=== PATIENT | female | born 1940 | race Caucasian/White ===

== ENCOUNTER → 2019-06-30 | Outpatient (CLI) | payer MEDICARE, SELFPAY | PROVIDERS: PCP Internal Medicine; Visit Provider Surgery | DX: N64.89 Other specified disorders of breast (principal); N64.4 Mastodynia; N63.20 Unspecified lump in the left breast, unspecified quadrant; M96.843 Postprocedural seroma of a musculoskeletal structure following other procedure; Z92.3 Personal history of irradiation | CPT/HCPCS: 10060; 10160; 76942; 87070; 87075; 87205 ==

== ENCOUNTER 2019-10-28 13:21 | Outpatient (CLI) | payer MEDICARE, SELFPAY ==
--- NOTE | 2019-10-28 | ECHO_ITS ---
Patient Info Name: Cande Weaver Age: 79 years : 1940 Gender: Female Ht: 66 in Wt: 145 lbs BSA: 1.76 m2 HR: 107 bpm BP: 167 / 89 mmHg Technical Quality: Good Exam Date: 10/28/2019 1:48 PM Exam Location: [facility] Patient Status: Outpatient Admit Date: 10/28/2019 Staff Ordering Physician: Marifer, Eulogio Brannon MD Machine Molder: Mejia Dick RDCS, RT Attending Provider: Marifer, Eulogio Brannon MD Referring Physician: Marifer JIMENEZ; Exam Type: CA echo doppler color flow Study Info Indications Z85.3 - Personal history of malignant neoplasm of breast Complete two-dimensional, color flow and Doppler transthoracic echocardiogram is performed. Summary 1. Left ventricular chamber dimension is normal. 2. Left ventricular systolic function is normal, estimated at 60-65%. 3. The left ventricular diastolic function is normal. 4. E/e' 8 is minimally elevated. 5. Global longitudinal strain is abnormal at -15.3%. 6. There is moderate aortic valve sclerosis. 7. There is mild aortic valve regurgitation. 8. The mitral valve has mildly calcified annulus. 9. There is mild mitral valve regurgitation. 10. There is mild to moderate tricuspid valve regurgitation. 11. No pulmonary hypertension, estimated pulmonary arterial systolic pressure is 30 mmHg. 12. There is trace pulmonic regurgitation. Left Ventricle E/e' 8 is minimally elevated. Global longitudinal strain is abnormal at -15.3%. Left ventricular chamber dimension is normal. Left ventricular systolic function is normal, estimated at 60-65%. The left ventricular diastolic function is normal. Right Ventricle Right ventricular chamber dimension is normal. Right ventricular systolic function is normal. Left Atria Left atrial chamber dimension is normal. Right Atria Right atrial chamber dimension is normal. Aortic Valve The aortic valve is trileaflet. There is moderate aortic valve sclerosis. There is no aortic valve stenosis. There is mild aortic valve regurgitation. Pulmonic Valve There is trace pulmonic regurgitation. Mitral Valve The mitral valve has mildly calcified annulus. There is no mitral valve stenosis. There is mild mitral valve regurgitation. Tricuspid Valve There is mild to moderate tricuspid valve regurgitation. No pulmonary hypertension, estimated pulmonary arterial systolic pressure is 30 mmHg. Pericardium/Pleural There is no pericardial effusion. Inferior Vena Cava Normal inferior vena cava with >50% collapse upon inspiration consistent with normal right atrial pressure, 5 mmHg. Aorta The aortic root size at the sinus of Valsalva is normal. Left Ventricular Outflow Tract Name Value Normal LVOT 2D LVOT Diameter 1.9 cm LVOT Doppler LVOT Peak Gradient 6 mmHg LVOT Mean Gradient 3 mmHg LVOT VTI 28 cm LVOT VTI/AV VTI Ratio 0.9 LVOT Stroke Volume 77 ml LVOT CO 4.8 l/min LVOT CI
== END 2019-10-28 13:22 | disposition home or self-care (01) ==
LOC: ANHCARD 13:27
PROVIDERS: PCP Internal Medicine; Visit Provider Internal Medicine
DX: Z51.81 Encounter for therapeutic drug level monitoring (principal); Z79.899 Other long term (current) drug therapy; I08.3 Combined rheumatic disorders of mitral, aortic and tricuspid valves
CPT/HCPCS: 93306

== ENCOUNTER → 2019-11-15 10:22 | Outpatient (CLI) | payer MEDICARE, SELFPAY ==
--- NOTE | ~2019-11-15 | MM_ITS ---
EXAMINATION: MM screening eleanor BI w marc HISTORY: Screening mammogram, history of left breast cancer TECHNIQUE: Craniocaudal and mediolateral oblique 3-D tomosynthesis images were obtained and synthetic 2-D images were generated. CAD analysis was submitted and interpreted. COMPARISON: 06/22/2018, 06/12/2018, 06/04/2017 BREAST PARENCHYMAL COMPOSITION: The breasts are heterogeneously dense, which may obscure small masses . FINDINGS: Architectural distortion and skin thickening of the left breast are consistent with treatme nt for left breast cancer. There is no evidence of suspicious mass, calcification, or architectural d istortion to suggest malignancy in either breast. There has been no suspicious interval change. IMPRESSION: 1. No mammographic evidence of malignancy. 2. Recommend routine screening mammography while the patient remains in good health. BI-RADS Category 2: Benign finding(s). Reviewed, dictated and finalized at location A. IMPRESSION: 1. No mammographic evidence of malignancy. 2. Recommend routine screening mammography while the patient remains in good he alth. BI-RADS Category 2: Benign finding(s).
== END ==
PROVIDERS: PCP Internal Medicine; Visit Provider Internal Medicine
DX: Z12.31 Encounter for screening mammogram for malignant neoplasm of breast (principal)
CPT/HCPCS: 77063; 77067

== ENCOUNTER 2020-01-18 12:36 | Outpatient (CLI) | payer MEDICARE, SELFPAY ==
--- NOTE | 2020-01-18 | ECHO_ITS ---
Patient Info Name: Cande Weaver Age: 79 years : 1940 Gender: Female Ht: 65 in Wt: 144 lbs BSA: 1.74 m2 HR: 73 bpm BP: 162 / 85 mmHg Heart Rhythm: Sinus Rhythm Technical Quality: Fair Exam Date: 01/18/2020 12:59 PM Exam Location: [facility] Patient Status: Outpatient Admit Date: 01/18/2020 Staff Ordering Physician: Marifer, Eulogio Brannon MD Body Maker Machine Setter: Lo Perez RDCS Attending Provider: Marifer, Eulogio Brannon MD Exam Type: CA echo doppler color flow Study Info Complete two-dimensional, color flow and Doppler transthoracic echocardiogram is performed. Summary 1. Left ventricular systolic function and diastolic function are normal with no regional wall motion abnormalities with a measured ejection fraction of 61%. There is mild LV enlargement. Normal left ventricular thickness. The global longitudinal strain is -14.7%, suggesting early systolic dysfunction but unchanged compared to the exam of 10/28/2019. 2. Left atrial chamber dimension is mildly enlarged. 3. There is mild aortic valve regurgitation. 4. There is mild mitral valve regurgitation. 5. There is mild tricuspid valve regurgitation. 6. No pulmonary hypertension, estimated pulmonary arterial systolic pressure is 35 mmHg. 7. Normal sinus rhythm. 8. Compared to the prior 10/2019, the left ventricular systolic function has not changed although there is now mild left ventricular enlargement. Left Ventricle Left ventricular chamber dimension is mildly enlarged. Left ventricular systolic function is normal, estimated at 55-60%. There is no increased left ventricular wall thickness. Left ventricular septal wall motion is normal. The left ventricular diastolic function is normal. Left ventricular systolic function and diastolic function are normal with no regional wall motion abnormalities with a measured ejection fraction of 61%. There is mild LV enlargement. Normal left ventricular thickness. The global longitudinal strain is -14.7%, suggesting early systolic dysfunction but unchanged compared to the exam of 10/28/2019. Right Ventricle Right ventricular chamber dimension is normal. Right ventricular systolic function is normal. Left Atria Left atrial chamber dimension is mildly enlarged. Right Atria Right atrial chamber dimension is normal. Aortic Valve The aortic valve is trileaflet. There is mild aortic valve sclerosis. There is no aortic valve stenosis. There is mild aortic valve regurgitation. Pulmonic Valve The pulmonic valve is normal. There is no pulmonic valve stenosis. There is trace pulmonic regurgitation. Mitral Valve The mitral valve has normal leaflets. There is no mitral valve stenosis. There is mild mitral valve regurgitation. Tricuspid Valve The tricuspid valve leaflets are normal. There is no significant tricuspid valve stenosis. There is mild tricuspid valve regurgitation. No pulmonary hypertension, estimated pulmonary arterial systolic pressure is 35 mmHg. Pericardium/Pleural The pericardium appears normal. There is no pericardial effusion. Inferior Vena Cava Normal inferior vena cava with >50% collapse upon inspiration consistent with Empty right atrial pressure, 10 mmHg. Aorta The aortic root size at the sinus of Valsalva is normal. The prox ascending aorta size is normal. Left Ventricular Outflow Tract Name Value Normal
== END 2020-01-18 12:37 | disposition home or self-care (01) ==
PROVIDERS: PCP Internal Medicine; Visit Provider Internal Medicine
DX: Z51.81 Encounter for therapeutic drug level monitoring (principal); Z79.899 Other long term (current) drug therapy; I51.7 Cardiomegaly; I08.3 Combined rheumatic disorders of mitral, aortic and tricuspid valves
CPT/HCPCS: 93306

== ENCOUNTER 2020-09-16 06:57 | Outpatient (CLI) | payer MEDICARE, SELFPAY ==
[2020-09-16 07:45] LABS: Alanine Aminotransferase 14 U/L (4-35); Albumin Level 3.9 g/dL (3.5-5.1); Alkaline Phosphatase 80 U/L (38-126); Anion Gap 5 mmol/L (8-16); Aspartate Amino Transferase 29 U/L (14-36); Bilirubin,Total 0.7 mg/dL (0.2-1.3); Blood Urea Nitrogen 21 mg/dL (7-17); Calcium 9.3 mg/dL (8.4-10.2); Carbon Dioxide 30 mmol/L (22-30); Chloride 104 mmol/L (98-107); Cholesterol 235 mg/dL (0-200); Estimated Glomerular Filt Rate > 60; Glucose 88 mg/dL (65-105); HDL Direct 66 mg/dL; Potassium 4.2 mmol/L (3.4-5.0); Sodium 139 mmol/L (137-145); Triglycerides 115 mg/dL (<150)
[2020-09-16 07:56] LABS: LDL Cholesterol Direct 138 mg/dL
[2020-09-16 08:33] LABS: Vitamin D 25 Hydroxy 51.2 ng/mL
== END 2020-09-16 06:58 | disposition home or self-care (01) ==
PROVIDERS: PCP Internal Medicine; Visit Provider Nurse Practitioner
DX: E78.2 Mixed hyperlipidemia (principal); E55.9 Vitamin D deficiency, unspecified
CPT/HCPCS: 36415; 80053; 80061; 82306

== ENCOUNTER → 2020-12-11 00:08 | Outpatient (CLI) | payer MEDICARE, SELFPAY ==
[2020-12-11 19:29] LABS: SARS-CoV-2 RNA PCR Negative
== END ==
PROVIDERS: PCP Internal Medicine; Visit Provider Surgery
DX: Z01.812 Encounter for preprocedural laboratory examination (principal); Z20.822 Contact with and (suspected) exposure to COVID-19
CPT/HCPCS: C9803; U0003; U0005

== ENCOUNTER 2020-12-14 00:06 | Day surgery (SDC) | payer MEDICARE, SELFPAY ==
[2020-10-19 13:01] VITALS: BMI 23.8
[2020-12-01 14:56] VITALS: BMI 23.8
--- NOTE | 2020-12-13 17:31 | PM.SD2 ---
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 She underwent primary systemic chemotherapy for this and then underwent left breast lumpectomy left axillary sentinel node biopsy in April of 2019. She has been followed by Oncology and has had no evidence of recurrent disease. She is taken to surgery today as an outpatient for removal of her right subclavian Port-A-Cath. [facility] Past Medical History Medical History Extremity cyanosis Malignant neoplasm of upper-outer quadrant of left female breast Family History Family History Grandparent Diabetes mellitus Family history of type 2 diabetes mellitus Father Acute myocardial infarction Sibling Acute myocardial infarction Family history of multiple sclerosis Other Family history of cardiovascular disease Social History Social History Smoking status: Never smoker Second hand tobacco smoke exposure: No Alcohol intake: former Alcohol use details: VERY RARELY IN PAST Substance use: never Living arrangements: alone Spiritual care concerns: No Same Day Admit/Disch: Med Pre-admit Medications Home Medications Medication Instructions Recorded Confirmed Type aspirin 81 mg tablet,delayed 81 mg PO DAILY 08/11/19 12/14/20 History release calcium carbonate 600 mg calcium 600 mg PO DAILY 08/11/19 12/14/20 History (1,500 mg) tablet anastrozole 1 mg tablet 1 mg PO DAILY 08/14/20 12/14/20 History latanoprost 0.005 % eye drops 1 drp OPHTHALMIC (EYE) QPM #2.5 ml 08/14/20 12/14/20 Rx polyethylene glycol 400 0.25 % eye 0.1 drp OPHTHALMIC (EYE) TID #10 ml 08/14/20 12/14/20 Rx drops black cohosh 20 mg PO DAILY 10/19/20 12/14/20 History cholecalciferol (vitamin D3) 25 mcg PO DAILY 10/19/20 12/14/20 History [Vitamin D3] vitamin E 400 unit PO DAILY 10/19/20 12/14/20 History brimonidine 0.1 % eye drops See Rx Instructions .ROUTE 11/27/20 12/14/20 Rx .COMPLEX #5 ml ibuprofen 600 mg PO Q6H PRN #14 tablet 12/14/20 Rx Exam Const: General: comfortable, no acute distress, alert and awake HENMT: Head: normocephalic and atraumatic Mouth: Yes Normal oral and palatal mucosa present Eyes: Conjunctivae: conjunctivae normal Pupils: Equal, round and reactive pupils present EOM: EOMs intact bilaterally Neck: Neck: normal visual inspection, no lymphadenopathy and nontender Chest: Chest palpation & inspection: abnormal inspection of the chest ( Right subclavian Port-A-Cath noted- no redness or other issues) Resp: Effort & Inspection: normal respiratory effort Auscultation: clear to auscultation bilaterally Cardio: Rate: regular rate Rhythm: regular rhythm Heart sounds: no gallops, no murmurs and no rubs GI: Inspection: non-distended GI Palp: Yes Soft to palpation, No Tenderness to palpation present (GI), No Hepatomegaly present and No Splenomegaly present Skin: Lesions: no lesions Rashes: no rashes Neuro: General: no focal motor deficits and CN's II-XI intact bilaterally Cranial nerves: Yes Equal, round and reactive pupils present, Yes Bilaterally intact EOM present, Yes facial symmetry and Yes Midline tongue present Speech: normal speech Motor exam (neuro): 5/5 motor strength present throughout and Motor abnormalities not present Extrem: General: no clubbing, cyanosis or edema and edema Psych: Affect: normal affect Thought process: Normal thought process present Insight: Good insight present (Psych) DS: Summary Time Spent with Patient Time attestation: Total time spent providing and/or coordinating discharge services: DS: Admitting Diagnosis Admitting Diagnosis Admitting Diagnosis: HER-2 posi
--- NOTE | 2020-12-14 08:44 | WPDANESEPPF ---
Anes - Initial Pre Proc Eval Procedure: Operation Date: 12/14/20 10:30 Proposed Procedures p Removal Suki Cath - Atilio Clement MD Date/Time: 12/14/20 08:44 Surgeon: Atilio Clement MD Pre Op Diagnosis: Port-A-Cath not needed Patient Data Age: 80 Gender: F Height: 5 ft 5.5 in Weight: 66 kg Allergies Allergy/AdvReac Type Severity Reaction Status Date / Time penicillin G Allergy Unknown Rash Verified 12/01/20 14:55 pneumococcal vaccine Allergy Unknown REDNESS Verified 12/01/20 14:55 AND SWELLING Home Medications Medication Instructions Recorded Confirmed Type aspirin 81 mg tablet,delayed 81 mg PO DAILY 08/11/19 12/01/20 History release calcium carbonate 600 mg calcium 600 mg PO DAILY 08/11/19 12/01/20 History (1,500 mg) tablet anastrozole 1 mg tablet 1 mg PO DAILY 08/14/20 12/01/20 History latanoprost 0.005 % eye drops 1 drp OPHTHALMIC (EYE) QPM #2.5 ml 08/14/20 12/01/20 Rx polyethylene glycol 400 0.25 % eye 0.1 drp OPHTHALMIC (EYE) TID #10 ml 08/14/20 12/01/20 Rx drops black cohosh 20 mg PO DAILY 10/19/20 12/01/20 History cholecalciferol (vitamin D3) 25 mcg PO DAILY 10/19/20 12/01/20 History [Vitamin D3] vitamin E 400 unit PO DAILY 10/19/20 12/01/20 History brimonidine 0.1 % eye drops See Rx Instructions .ROUTE 11/27/20 12/01/20 Rx .COMPLEX #5 ml Patient hx anesthesia problems: none Family hx anesthesia problems: none PMFSH Past Medical History Medical History Extremity cyanosis Malignant neoplasm of upper-outer quadrant of left female breast Family History Family History Grandparent Diabetes mellitus Family history of type 2 diabetes mellitus Father Acute myocardial infarction Sibling Acute myocardial infarction Family history of multiple sclerosis Other Family history of cardiovascular disease Social History Social History Smoking status: Never smoker Second hand tobacco smoke exposure: No Alcohol intake: former Alcohol use details: VERY RARELY IN PAST Substance use: never Living arrangements: alone Spiritual care concerns: No Anes - Eval Final PreProcedure Day of Procedure 12/14/20 08:44 Patient weight: normal Heart: regular rate and rhythm Lungs: clear to auscultation Airway: Mallampati scale class II Neurological: alert and oriented Last oral intake: >/= 8 hours ASA classification: III Emergent: no Anesthetic plan: proceed Anesthesia type and monitoring: general GIVS and standard monitoring Other findings: pt can leave partial in Informed Consent: The patient's anesthetic plan and its attendant risks and benefits were discussed with the patient/family/POA. Questions were solicited and answers provided to the satisfaction of the patient/family/POA.
[2020-12-14 09:00] VITALS: BP 136/56; PULSE 71; RESP 18; TEMP 36.2; O2SAT 100
[2020-12-14] MEDS: LACTATED RINGERS 1,000 ML 30 ML IV CONT (09:23)
--- NOTE | 2020-12-14 09:28 | WPDHPUPDATE1 ---
History and Physical Update Update Date/Time: 12/14/20 09:28 History and Physical has been reviewed, including an updated exam of the patient. There are NO changes in the patient's condition. Risks, benefits, and alternatives have been discussed and questions answered. Patient agrees to proceed with procedure.
[2020-12-14] MEDS: CLINDAMYCIN 900 MG/D5W 50 ML 900 MG/50 ML PIGGYBACK 50 MG IVPB (09:42)
[2020-12-14] MEDS: BUPIVACAINE/EPINEPHRINE 0.5% 30 ML VIAL INFILTRATE (10:01)
[2020-12-14 10:15] VITALS: BP 102/48; PULSE 59; RESP 16; O2SAT 100
--- NOTE | 2020-12-14 10:24 | PM.PROC ---
Procedure Note - Detailed Date of procedure: 12/14/20 Pre-op diagnosis: Port-A-Cath not needed, history breast cancer Breast cancer, Port-A-Cath no longer needed Post-op diagnosis: same Procedure performed: Removal right subclavian Port-A-Cath Description of procedure: Patient was taken to surgery and IV sedation was administered. The right upper chest was prepped and draped. Local was infiltrated over the previous scar. Incision was made and dissection was carried down to the Port-A-Cath tubing and connection to the reservoir. Sharp dissection was used to open the fibrous sheath encapsulating the Port-A-Cath. Port-A-Cath was then extricated from the sheath. The sutures retaining the Port-A-Cath were cut and removed from the wound. The Port-A-Cath was then extricated from the subclavian vein. There was no back bleeding. A few loose ends of the fiber sheath were then removed. The wound was closed in layers with 3 0 Monocryl suture. The skin was closed with running 4 0 Monocryl skin suture. The wound was dressed with Exofin surgical adhesive. The patient was awakened and taken to outpatient recovery in good condition. Anesthesia: MAC and local (0.5% Marcaine with epinephrine) Surgeon: Atilio Clement MD Buffet Waiter/Waitress: Teresa JOEL Estimated blood loss (mL): 5 Drains: No Packing: No Pathology: none sent Complications: None Condition: stable Disposition: same day Findings: Intact vortex Port-A-Cath
[2020-12-14 10:45] VITALS: BP 103/49; PULSE 58; RESP 16; O2SAT 99
[2020-12-14 10:55] VITALS: BP 118/77; PULSE 59; RESP 14; O2SAT 100
== END 2020-12-14 11:10 | disposition home or self-care (01) ==
PROVIDERS: PCP Internal Medicine; Visit Provider Surgery
PROC: (CPT 36589; principal; 2020-12-14 10:30)
DX: Z45.2 Encounter for adjustment and management of vascular access device (principal); Z85.3 Personal history of malignant neoplasm of breast; Z92.21 Personal history of antineoplastic chemotherapy
CPT/HCPCS: 36590; C9803; J0131; J1100; J1885; J2370; J2405; J2704; J3010; J7120; U0003; U0005

== ENCOUNTER 2021-02-01 16:47 | Outpatient (CLI) | payer MEDICARE, SELFPAY ==
--- NOTE | ~2021-02-01 | MM_ITS ---
EXAMINATION: MM screening eleanor BI w marc HISTORY: Screening mammogram TECHNIQUE: Craniocaudal and mediolateral oblique 3-D tomosynthesis images were obtained and synthetic 2-D images were generated. CAD analysis was submitted and interpreted. COMPARISON: 11/11/2019 bilateral digital screening mammogram 04/24/2019 left breast localization 06/22/2018 diagnostic left mammogram and left breast ultrasound BREAST PARENCHYMAL COMPOSITION: The breasts are heterogeneously dense, which may obscure small masses . FINDINGS: There is interval prominent architectural distortion/spiculation and overlying mild retract ion at the outer mid left breast anteriorly, suspicious for recurrent malignancy. There is skin thick ening on the left. Diagnostic left mammogram and left breast ultrasound examination are recommended. There is no evidence of suspicious mass, calcification, or architectural distortion to suggest malign vianca in the right breast. There has been no suspicious interval change on the right. IMPRESSION: 1. Interval prominent architectural distortion and overlying retraction at anterior outer mid left br east 2. Diagnostic left mammogram and left breast ultrasound examination are recommended BI-RADS Category 0: Incomplete: Needs additional imaging evaluation. Reviewed, dictated and finalized at location A. IMPRESSION: 1. Interval prominent architectural distortion and overlying retraction at ante rior outer mid left breast 2. Diagnostic left mammogram and left breast ultrasound examination are recomme nded BI-RADS Category 0: Incomplete: Needs additional imaging evaluation.
== END 2021-02-01 16:48 | disposition home or self-care (01) ==
LOC: ANHIMG 16:53
PROVIDERS: PCP Internal Medicine; Visit Provider Internal Medicine
DX: Z12.31 Encounter for screening mammogram for malignant neoplasm of breast (principal); R92.8 Other abnormal and inconclusive findings on diagnostic imaging of breast
CPT/HCPCS: 77063; 77067

== ENCOUNTER 2021-02-06 07:47 | Outpatient (CLI) | payer MEDICARE, SELFPAY ==
[2021-02-06 08:41] LABS: Anion Gap 6 mmol/L (8-16); Blood Urea Nitrogen 23 mg/dL (7-17); Calcium 9.9 mg/dL (8.4-10.2); Carbon Dioxide 29 mmol/L (22-30); Chloride 106 mmol/L (98-107); Cholesterol 243 mg/dL (0-200); Estimated Glomerular Filt Rate > 60; Glucose 96 mg/dL (65-105); HDL Direct 74 mg/dL; Potassium 4.3 mmol/L (3.4-5.0); Sodium 141 mmol/L (137-145); Triglycerides 80 mg/dL (<150)
[2021-02-06 08:54] LABS: LDL Cholesterol Direct 109 mg/dL
[2021-02-06 09:32] LABS: Vitamin D 25 Hydroxy 63.1 ng/mL
== END 2021-02-06 07:48 | disposition home or self-care (01) ==
PROVIDERS: PCP Internal Medicine; Visit Provider Internal Medicine
DX: E78.5 Hyperlipidemia, unspecified (principal); Z13.6 Encounter for screening for cardiovascular disorders; E55.9 Vitamin D deficiency, unspecified
CPT/HCPCS: 36415; 80048; 80061; 82306

== ENCOUNTER 2021-03-02 11:46 | Outpatient (CLI) | payer MEDICARE, SELFPAY ==
--- NOTE | ~2021-03-02 | MMUS_ITS ---
EXAMINATION: MM diagnostic mammo unilat LT, US breast LT limited HISTORY: Interval prominent architectural distortion and overlying retraction in the anterior outer m id left breast on 02/01/2021 screening mammogram TECHNIQUE: Additional 3-D tomosynthesis images of the left breast were performed and synthetic 2-D im ages were generated. CAD analysis was submitted and interpreted. High resolution upper outer quadrant left breast ultrasound was performed. COMPARISON: 02/01/2021 and 11/15/2019 bilateral digital screening mammogram examinations 06/22/2018 diagnostic left mammogram and limited left breast ultrasound 06/12/2018, 06/06/2017 bilateral digital screening mammogram examinations BREAST PARENCHYMAL COMPOSITION: The breasts are heterogeneously dense, which may obscure small masses . FINDINGS: MAMMOGRAPHIC FINDINGS: There is asymmetric mass and architectural distortion and overlying mild retraction at the anterior m id outer left breast at 2-3:00 approximately. Targeted ultrasound correlation is recommended. ULTRASOUND: There is up to 2 cm very irregular area of hypoechogenicity at 3:00 anteriorly, with an approximately 1.7 mm wide 3 mm vertical dimension anterior tentacle. There is posterior shadowing. This is suspici ous for malignancy. Diffusion diagnosis includes postsurgical scarring. Ultrasound-guided biopsy is r ecommended. IMPRESSION: 1. Up to 2 cm irregular hypoechoic lesion with posterior shadowing at 3:00 2. Ultrasound-guided biopsy of 3:00 lesion is recommended. BI-RADS category 4, suspicious findings. Dr. Mccallum telephoned the report and recommendation for ultrasound-guided biopsy of the 3:00 area on at 1302 hours to the voicemail at [phone]. Reviewed, dictated and finalized at location A. IMPRESSION: 1. Up to 2 cm irregular hypoechoic lesion with posterior shadowing at 3:00 2. Ultrasound-guided biopsy of 3:00 lesion is recommended. BI-RADS category 4, suspicious findings. Dr. Mccallum telephoned the report and recommendation for ultrasound-guided biopsy of the 3:00 area on 03/02/2021 at 1302 hours to the voicemail at [phone]. IMPRESSION: 1. Up to 2 cm irregular hypoechoic lesion with posterior shadowing at 3:00 2. Ultrasound-guided biopsy of 3:00 lesion is recommended. BI-RADS category 4, suspicious findings. Dr. Mccallum telephoned the report and recommendation for ultrasound-guided biopsy of the 3:00 area on 03/02/2021 at 1302 hours to the voicemail at [phone].
== END 2021-03-02 11:47 | disposition home or self-care (01) ==
LOC: ANHIMG 11:51
PROVIDERS: PCP Internal Medicine; Visit Provider Internal Medicine
DX: N63.25 Unspecified lump in the left breast, overlapping quadrants (principal)
CPT/HCPCS: 76642; 77065

== ENCOUNTER 2021-03-22 10:03 | Outpatient (CLI) | payer MEDICARE, SELFPAY ==
--- NOTE | ~2021-03-22 | US_ITS ---
EXAMINATION: Consultation US INDICATION: Patient with history of left breast cancer presents for biopsy of abnormality detected on recent diagnostic mammogram and ultrasound. TECHNIQUE: Limited left breast ultrasound is performed. COMPARISON: 03/02/2021, 02/01/2021, 11/15/2019 FINDINGS: Real-time scanning, the area of concern on recent diagnostic mammogram and ultrasound appea rs to correlate with changes related to left breast surgery. This was discussed with the patient and a plan of six-month follow-up left diagnostic mammogram and ultrasound. IMPRESSION: 1. Changes likely related to left breast surgery. Follow-up left diagnostic mammogram and ultrasound in six months are recommended. Reviewed, dictated and finalized at location A. IMPRESSION: 1. Changes likely related to left breast surgery. Follow-up left diagnostic eleanor mogram and ultrasound in six months are recommended.
== END 2021-03-22 10:04 | disposition home or self-care (01) ==
PROVIDERS: PCP Internal Medicine; Visit Provider Internal Medicine
DX: R92.8 Other abnormal and inconclusive findings on diagnostic imaging of breast (principal)
CPT/HCPCS: 99199

== ENCOUNTER 2021-03-30 11:11 | Outpatient (CLI) | payer MEDICARE, SELFPAY ==
--- NOTE | ~2021-03-30 | XR_ITS ---
XR foot RT min 3V DATE: 03/30/2021 11:30 INDICATION: Right foot pain for 3 weeks TECHNIQUE: 4 views COMPARISON: None FINDINGS: There is old healed fracture deformity of the distal shaft of the fifth metatarsal bone. There is mild to moderate osteoarthritis at the first metatarsophalangeal joint. Mild hallux valgus and bunion deformity. No recent fracture or dislocation, periosteal reaction or bone destruction. 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
== END 2021-03-30 11:12 | disposition home or self-care (01) ==
PROVIDERS: PCP Internal Medicine; Visit Provider Internal Medicine
DX: M20.11 Hallux valgus (acquired), right foot (principal); M19.071 Primary osteoarthritis, right ankle and foot
CPT/HCPCS: 73630

== ENCOUNTER 2021-08-08 07:59 | Outpatient (CLI) | payer MEDICARE, SELFPAY ==
[2021-08-08 09:27] LABS: Anion Gap 7 mmol/L (8-16); Blood Urea Nitrogen 23 mg/dL (7-17); Calcium 9.8 mg/dL (8.4-10.2); Carbon Dioxide 25 mmol/L (22-30); Chloride 106 mmol/L (98-107); Cholesterol 228 mg/dL (0-200); Estimated Glomerular Filt Rate > 60; Glucose 104 mg/dL (65-110); HDL Direct 72 mg/dL; Sodium 138 mmol/L (137-145); Triglycerides 71 mg/dL (<150)
[2021-08-08 09:38] LABS: LDL Cholesterol Direct 133 mg/dL
[2021-08-08 09:44] LABS: Vitamin D 25 Hydroxy 61.8 ng/mL
== END 2021-08-08 08:00 | disposition home or self-care (01) ==
PROVIDERS: PCP Internal Medicine; Visit Provider Internal Medicine
DX: R03.0 Elevated blood-pressure reading, without diagnosis of hypertension (principal); E78.5 Hyperlipidemia, unspecified; E55.9 Vitamin D deficiency, unspecified
CPT/HCPCS: 36415; 80048; 80061; 82306

== ENCOUNTER → 2021-09-25 01:53 | Outpatient (CLI) | payer MEDICARE, SELFPAY ==
--- NOTE | ~2021-09-25 | MM_ITS ---
EXAMINATION: MM diagnostic eleanor LT w marc HISTORY: Architectural distortion of the left breast. Follow-up. TECHNIQUE: Additional 3-D tomosynthesis images of the left breast were performed and synthetic 2-D im ages were generated. CAD analysis was submitted and interpreted. COMPARISON: Comparison to multiple prior studies sequentially, with oldest reviewed study dated 04/22. BREAST PARENCHYMAL COMPOSITION: The breasts are heterogenously dense, which may obscure small masses FINDINGS: The architectural distortion in the upper outer quadrant of the left breast is not signific antly changed dating back to 11/15/2019 and allowing for differences of technique, consistent with pr evious lumpectomy site. No new masses, calcifications or architectural distortion in the left breast to suggest malignancy. IMPRESSION: 1. Stable architectural distortion upper outer quadrant of the left breast, consistent with previous lumpectomy site. 2. Recommend 6 month follow-up diagnostic bilateral mammogram. BI-RADS category 3, probably benign findings. Reviewed, dictated and finalized at location A. I[facility] C[facility] IMPRESSION: 1. Stable architectural distortion upper outer quadrant of the left breast, con sistent with previous lumpectomy site. 2. Recommend 6 month follow-up diagnostic bilateral mammogram. BI-RADS category 3, probably benign findings.
[2021-09-25 13:15] LABS: SARS-CoV-2 RNA PCR Negative
[2021-09-26 14:47] LABS: Influenza A QL RT-PCR Negative (Negative); Influenza B QL RT-PCR Negative (Negative)
== END ==
PROVIDERS: PCP Internal Medicine; Visit Provider Physician Assistant Medical
DX: C50.812 Malignant neoplasm of overlapping sites of left female breast (principal); R92.8 Other abnormal and inconclusive findings on diagnostic imaging of breast; Z20.822 Contact with and (suspected) exposure to COVID-19; Z17.0 Estrogen receptor positive status [ER+]
CPT/HCPCS: 77061; 77065; 87502; C9803; G0279; U0003; U0005

== ENCOUNTER 2022-01-18 14:30 | Outpatient (CLI) | payer MEDICARE, SELFPAY ==
--- NOTE | ~2022-01-18 | DEXA_ITS ---
Bone Density Report Name: SANCHO DUONG Age: 81 Sex: Female Ethnicity: White Date of : 1940 Indication: postmenopausal; screening for osteoporosis; height loss; cancer; hysterectomy; Referring Provider: SAM DUENAS Study: Bone densitometry was performed. Exam Date: January 18, 2022 Accession number: [id number] Bone Density: Region BMD T-score Z-score Classification AP Spine(L1-L4) 0.924 -1.1 1.7 Osteopenia Femoral Neck (Left) 0.602 -2.2 0.2 Osteopenia Total Hip (Left) 0.726 -1.8 0.5 Osteopenia Femoral Neck (Right) 0.620 -2.1 0.4 Osteopenia Total Hip (Right) 0.720 -1.8 0.4 Osteopenia Total Hip Mean 0.723 -1.8 0.5 Osteopenia World Health Organization criteria for BMD impression classify patients as: Normal (T-score at or above -1.0), Osteopenia (T-score between -1.0 and -2.5), or Osteoporosis (T-score at or below -2.5). 10-year Fracture Risk(1): Major Osteoporotic Fracture 16% Hip Fracture 5.4% Reported Risk Factors: [place] (), Neck BMD=0.602, BMI=24.3 (1) FRAX(R) Version 3.08. Fracture probability calculated for an untreated patient. Fracture probability may be lower if the patient has received treatment. Clinical Information Provided by Patient: Has the following medical conditions: Cancer, Hysterectomy Patient maximum height was 66 Menopause Age: 48 No regular weight bearing exercise Drinks caffeinated beverages Onset of menses at age 12 Number of children 1 Impression: The patient has low bone mass, based on the Left Femoral Neck T-score. The patient has an estimated ten-year risk of hip fracture of 5.4% and an estimated ten-year risk of major fracture of 16%, based on the WHO FRAX algorithm. Discussion: BONE DENSITY IS LOW AT ONE OR MORE SKELETAL SITES. THE PATIENT'S BMD AND CLINICAL RISK FACTORS CONTRIBUTE TO THIS PATIENT'S INCREASED RISK OF FRACTURE. This patient's lowest T-score is low at one or more skeletal sites. It meets the World Health Organization's (WHO) criteria for ?low bone mass? (T-score between -1.0 and -2.5). The patient's 10-year risk of hip fracture as calculated by FRAX exceeds the threshold where pharmacological therapy is recommended by the National Osteoporosis Foundation (NOF). However, all treatment decisions require clinical judgment and consideration of individual patient factors, including patient preferences, comorbidities, previous drug use, risk factors not captured in the FRAX model (e.g., frailty, falls, vitamin D deficiency, increased bone turnover, interval significant decline in bone density) and possible under or overestimation of fracture risk by FRAX. The patient should follow a healthful lifestyle (good nutrition with adequate calcium and vitamin D, and appropriate weight-bearing exercise). Follow-Up: Conside
== END 2022-01-18 14:31 | disposition home or self-care (01) ==
PROVIDERS: PCP Internal Medicine; Visit Provider Nurse Practitioner
DX: Z78.0 Asymptomatic menopausal state (principal); Z13.820 Encounter for screening for osteoporosis; M85.88 Other specified disorders of bone density and structure, other site; M85.851 Other specified disorders of bone density and structure, right thigh; M85.852 Other specified disorders of bone density and structure, left thigh
CPT/HCPCS: 77080

== ENCOUNTER 2022-01-25 10:37 | Outpatient (CLI) | payer MEDICARE, SELFPAY | END 2022-01-25 10:38 | disposition home or self-care (01) | LOC: ANHAUDIO 10:38 | PROVIDERS: PCP Internal Medicine; Visit Provider Otolaryngology | DX: H72.91 Unspecified perforation of tympanic membrane, right ear (principal); H93.13 Tinnitus, bilateral; H91.93 Unspecified hearing loss, bilateral | CPT/HCPCS: 92557; 92567 ==

== ENCOUNTER 2022-02-13 07:44 | Outpatient (CLI) | payer MEDICARE, SELFPAY ==
[2022-02-13 09:11] LABS: Alanine Aminotransferase 10 U/L (6-35); Albumin Level 4.2 g/dL (3.5-5.1); Alkaline Phosphatase 80 U/L (38-126); Anion Gap 4 mmol/L (8-16); Aspartate Amino Transferase 19 U/L (14-36); Bilirubin,Total 0.7 mg/dL (0.2-1.3); Blood Urea Nitrogen 23 mg/dL (7-17); Calcium 9.1 mg/dL (8.4-10.2); Carbon Dioxide 28 mmol/L (22-30); Chloride 107 mmol/L (98-107); Cholesterol 241 mg/dL (0-200); Estimated Glomerular Filt Rate > 60; Glucose 90 mg/dL (65-110); HDL Direct 68 mg/dL; Potassium 4.2 mmol/L (3.4-5.0); Sodium 139 mmol/L (137-145); Triglycerides 91 mg/dL (<150)
[2022-02-13 09:23] LABS: LDL Cholesterol Direct 125 mg/dL
[2022-02-13 09:29] LABS: Vitamin D 25 Hydroxy 64.7 ng/mL
== END 2022-02-13 07:45 | disposition home or self-care (01) ==
PROVIDERS: PCP Internal Medicine; Referring Provider Internal Medicine Medical Oncology; Visit Provider Nurse Practitioner
DX: E78.2 Mixed hyperlipidemia (principal); E55.9 Vitamin D deficiency, unspecified
CPT/HCPCS: 36415; 80053; 80061; 82306

== ENCOUNTER 2022-03-07 09:41 | Outpatient (RCR) | payer MEDICARE, SELFPAY | END 2022-03-07 23:59 | disposition home or self-care (01) | LOC: ANHAUDIO 09:41 | PROVIDERS: PCP Internal Medicine; Visit Provider Otolaryngology | DX: Z46.1 Encounter for fitting and adjustment of hearing aid (principal) | CPT/HCPCS: 99199 ==

== ENCOUNTER 2022-03-14 11:40 | Outpatient (CLI) | payer MEDICARE, SELFPAY ==
--- NOTE | ~2022-03-14 | MM_ITS ---
EXAMINATION: MM diagnostic eleanor BI w marc HISTORY: Follow-up architectural distortion of the left breast. TECHNIQUE: Additional 3-D tomosynthesis images of the left breast were performed and synthetic 2-D im ages were generated. CAD analysis was submitted and interpreted. COMPARISON: Comparison to multiple prior studies sequentially, with oldest reviewed study dated 04/22. BREAST PARENCHYMAL COMPOSITION: The breasts are heterogenously dense, which may obscure small masses FINDINGS: The breasts are stable. No new masses, calcifications or architectural distortion. Architec tural distortion located in the upper outer quadrant of the left breast anteriorly is unchanged from recent studies, consistent with previous lumpectomy site. IMPRESSION: 1. No evidence for malignancy. Stable bilateral mammogram. 2. Routine yearly screening mammogram and regular clinical breast examination are recommended. BI-RADS Category 2: Benign finding(s). Reviewed, dictated and finalized at location A. IMPRESSION: 1. No evidence for malignancy. Stable bilateral mammogram. 2. Routine yearly screening mammogram and regular clinical breast examination a re recommended. BI-RADS Category 2: Benign finding(s).
== END 2022-03-14 11:41 | disposition home or self-care (01) ==
PROVIDERS: PCP Internal Medicine; Visit Provider Physician Assistant Medical
DX: R92.8 Other abnormal and inconclusive findings on diagnostic imaging of breast (principal); C50.812 Malignant neoplasm of overlapping sites of left female breast; Z17.0 Estrogen receptor positive status [ER+]
CPT/HCPCS: 77062; 77066; G0279

== ENCOUNTER 2022-04-04 10:18 | Outpatient (CLI) | payer MEDICARE, SELFPAY ==
--- NOTE | ~2022-04-04 | US_ITS ---
EXAMINATION:US venous doppler LE LT INDICATION:Localized edema TECHNIQUE: Multiple grayscale, color flow and Doppler images of the left lower extremity deep venous systems were obtained and reviewed. COMPARISON:No prior studies for comparison. FINDINGS: The common femoral, superficial femoral and popliteal veins demonstrate normal respiratory variation, augmentation and compressibility. Color flow is also seen within the posterior tibial, pe roneal, greater saphenous and profunda veins. IMPRESSION: 1: No lower extremity deep venous thrombosis. Reviewed, dictated and finalized at location A.
== END 2022-04-04 10:19 | disposition home or self-care (01) ==
PROVIDERS: PCP Internal Medicine; Visit Provider Nurse Practitioner
DX: R60.0 Localized edema (principal)
CPT/HCPCS: 93971

== ENCOUNTER 2022-08-22 08:00 | Outpatient (CLI) | payer MEDICARE, SELFPAY ==
[2022-08-22 09:37] LABS: Anion Gap 3 mmol/L (8-16); Blood Urea Nitrogen 19 mg/dL (7-17); Calcium 8.9 mg/dL (8.4-10.2); Carbon Dioxide 29 mmol/L (22-30); Chloride 104 mmol/L (98-107); Cholesterol 230 mg/dL (0-200); Estimated Glomerular Filt Rate > 60; Glucose 85 mg/dL (65-110); HDL Direct 62 mg/dL; Sodium 136 mmol/L (137-145); Triglycerides 90 mg/dL (<150)
[2022-08-22 09:49] LABS: LDL Cholesterol Direct 116 mg/dL
== END 2022-08-22 08:01 | disposition home or self-care (01) ==
LOC: ANHLAB 08:01
PROVIDERS: PCP Internal Medicine; Visit Provider Internal Medicine
DX: R03.0 Elevated blood-pressure reading, without diagnosis of hypertension (principal); E55.9 Vitamin D deficiency, unspecified; E78.5 Hyperlipidemia, unspecified
CPT/HCPCS: 36415; 80048; 80061; 82306

== ENCOUNTER 2022-10-29 14:18 | Outpatient (CLI) | payer MEDICARE, SELFPAY ==
--- NOTE | ~2022-10-29 | CT_ITS ---
Clinical Indication: Non-Hodgkin's lymphoma CT Scan of the Chest, Abdomen, and Pelvis with Contrast: Technique: Contiguous sections were acquired throughout the chest, abdomen, and pelvis after intraven ous administration of 100 cc of Omnipaque 350. Dose reduction technique was used on this scan by romaine yosting automated exposure control and iterative reconstruction technique. The dose-length product (DL P) was 362.95 mGy-cm. Findings: There is no evidence of any significant mediastinal, hilar or axillary lymphadenopathy. The mediastin al soft tissues and vascular structures appear normal. There is no evidence of pleural or pericardial effusion. The lungs are clear. No pulmonary nodules or infiltrates are noted. The liver, spleen, pancreas, gallbladder, adrenals and kidneys are within normal limits. No evidence of aortic aneurysm. No lymphadenopathy. No bowel obstruction or bowel wall thickening. There is no evidence to suggest acute appendicitis. Urinary bladder is unremarkable. No pelvic mass identified. Impression: No pathologic lymphadenopathy seen. No significant abnormality seen. Reviewed, dictated and finalized at [facility]. [employer] Impression: No pathologic lymphadenopathy seen. No significant abnormality seen.
[2022-10-29 14:45] LABS: Estimated Glomerular Filt Rate > 60
== END 2022-10-29 14:19 | disposition home or self-care (01) ==
PROVIDERS: PCP Internal Medicine; Visit Provider Internal Medicine Medical Oncology
DX: C85.90 Non-Hodgkin lymphoma, unspecified, unspecified site (principal)
CPT/HCPCS: 71260; 74177; Q9967

== ENCOUNTER 2022-12-18 10:30 | Emergency (ER) | payer MEDICARE, SELFPAY ==
--- NOTE | ~2022-12-18 | XR_ITS ---
XR abdomen/kub 1V 12/18/2022 12:25 INDICATION: Obstipation TECHNIQUE: KUB COMPARISON: None FINDINGS: Bowel gas pattern is normal. Moderate colonic fecal loading. There is no evidence of free a ir, mass, organomegaly, ascites or obstruction. No abnormal calculi are seen. The bones appear inta ct. IMPRESSION: 1: No acute abdominal abnormality identified. Reviewed, dictated and finalized at location B.
--- NOTE | ~2022-12-18 | XR_ITS ---
XR lumbar spine 2-3V 12/18/2022 12:25 Indication: Low back pain Procedure: 3 views lumbar spine Comparison: No prior studies Findings: There is disc narrowing at all lumbar levels. There is moderate multilevel facet hypertroph y. There is grade 1 degenerative spondylolisthesis at L3-4 and L4-5. No fracture or traumatic malalig nment. There is a superior endplate compression fracture at T12 with approximately 20% loss of verteb ral body height, likely acute or subacute. Impression: 1: Superior endplate compression fracture of T12, likely acute or subacute. 2: Moderate lumbar spondylosis. Reviewed, dictated and finalized at location B. Impression: 1: Superior endplate compression fracture of T12, likely acute or subacute. 2: Moderate lumbar spondylosis.
[2022-12-18 10:59] VITALS: BP 123/64; PULSE 90; RESP 16; TEMP 36.6; O2SAT 98
[2022-12-18] MEDS: CYCLOBENZAPRINE HCL 5 MG TABLET PO (12:06)
[2022-12-18 13:35] VITALS: BP 142/87; PULSE 75; O2SAT 100
--- NOTE | 2022-12-18 13:53 | ED.BACK ---
HPI - Back Pain/Injury General Chief Complaint: Back Pain/Injury Stated Complaint: back pain/ constipation Time Seen by Provider: 12/18/22 11:25 History of Present Illness HPI Narrative: Patient is an 82-year-old female who presents ER with back pain. Ongoing for the last week. She states she woke up from sleep 1 day and try to get out of bed and felt a sharp pain in her back. It is continued to pester her despite taking naproxen twice a day. No lower extremity numbness or weakness. No difficulty with urination/defecation. No known trauma. Denies any heavy lifting or falls. Due to its persistence she came in for further evaluation. Patient also reports she had been having some constipation but took a Dulcolax yesterday and had diarrhea. Patient had been taking iron over the last 2 weeks. Related Data Home Medications Medication Instructions Recorded Confirmed calcium carbonate 600 mg calcium 600 mg PO DAILY 08/11/19 08/27/22 (1,500 mg) tablet (Calcium) anastrozole 1 mg tablet 1 mg PO DAILY 08/14/20 08/27/22 cholecalciferol (vitamin D3) 25 25 mcg PO DAILY 10/19/20 08/27/22 mcg (1,000 unit) capsule (Vitamin D3) vitamin E 268 mg (400 unit) capsule 400 unit PO DAILY 10/19/20 08/27/22 Allergies Allergy/AdvReac Type Severity Reaction Status Date / Time penicillin G Allergy Unknown Rash Verified 12/18/22 10:33 pneumococcal vaccine Allergy Unknown REDNESS Verified 12/18/22 10:33 AND SWELLING Review of Systems Review of Systems: All systems reviewed & are unremarkable except as noted in HPI and below Constitutional: Constitutional: Denies chills, Denies fatigue and Denies fever(s) Cardiovascular: Cardiovascular: Denies chest pain and Denies radiating jaw, neck or arm pain Gastrointestinal: Gastrointestinal: Denies abdominal pain, Denies nausea and Denies vomiting Musculoskeletal: Musculoskeletal: Reports back pain, Denies arthralgias and Denies joint swelling [facility] Past Medical History Medical History Extremity cyanosis Malignant neoplasm of upper-outer quadrant of left female breast Family History Family History Grandparent Diabetes mellitus Family history of type 2 diabetes mellitus Father Acute myocardial infarction Sibling Acute myocardial infarction Family history of multiple sclerosis Other Family history of cardiovascular disease Social History Social History Smoking status: Never smoker Second hand tobacco smoke exposure: No Alcohol intake: former Alcohol use details: VERY RARELY IN PAST Substance use: never Substance use type: does not use Living arrangements: alone Spiritual care concerns: No Exam Narrative: GENERAL: Well-appearing, well-nourished, and in no acute distress. HEAD: Normocephalic, atraumatic. ENT: Mucous membranes moist. CHEST: Clear to auscultation. No respiratory distress. HEART: Regular rate and rhythm. Normal peripheral pulses. Back: No reproducible midline or paraspinal muscle tenderness despite patient reporting pain around L3/L4 region. No bruising or abrasions. EXTREMITIES: Normal range of motion. No edema. SKIN: Warm, dry, no rash. NEURO: Alert and oriented x3. PSYCH: Normal mood and affect. Course Course Emergency Course: Patient and daughter informed of a superior endplate fracture. They verbalized understanding of treatment plan. We will treat with some Flexeril in addition to Tylenol at home. Patient does not wish to continue her home naproxen. Discussed need for follow-up with PCP. Discussed avoiding heavy lifting and should not lift anything heavier than a milk jug. Patient also has some mild constipation. She has discontinued her home iron. Recommend MiraLAX as needed. Vital Signs Vital signs: Vital Signs Temperature 97.8 F 12/18/22 10:59 Pulse R
== END 2022-12-18 14:14 | disposition home or self-care (01) ==
PROVIDERS: Emergency Provider Emergency Medicine; PCP Internal Medicine
DX: M48.54XA Collapsed vertebra, not elsewhere classified, thoracic region, initial encounter for fracture (principal); K59.00 Constipation, unspecified; Z85.3 Personal history of malignant neoplasm of breast; M47.816 Spondylosis without myelopathy or radiculopathy, lumbar region
CPT/HCPCS: 72100; 74018; 99283; 99284; A9270

== ENCOUNTER 2022-12-21 10:15 | Emergency (ER) | payer MEDICARE, SELFPAY ==
[2022-12-21] VITALS (9 sets, daily range): BP systolic 146–151; BP diastolic 68–85; PULSE 75; RESP 16; TEMP 36.4; O2SAT 99–100
--- NOTE | ~2022-12-21 | CT_ITS ---
EXAMINATION: CT abdomen pelvis w con INDICATION: Diffuse abdominal pain TECHNIQUE: Computed tomographic images of the abdomen and pelvis were obtained after the administrati on of 100 cc of Omnipaque 350 intravenous contrast. The dose-length product (DLP) was 356.44 mGy-cm. Automated exposure control and iterative reconstruction technique were employed. COMPARISON: 10/29/2022 FINDINGS: Minimal dependent atelectasis is present in the lung bases. The heart size is normal. The l iver, spleen, and adrenal glands are normal. There are questionable stones in the nondistended gallbl adder. There is a 6 mm cystic lesion in the body of the pancreas without definite communication with the main pancreatic duct. The kidneys are unremarkable. No pathologically enlarged abdominal or pelvi c lymph nodes are identified. No free intraperitoneal gas or evidence of bowel obstruction. A moderat e volume of colonic stool is present. The appendix is normal. There is a burst fracture of T12 with 3 mm of retropulsion of fracture fragments just new since the comparison CT. There is moderate lumbar spondylosis. IMPRESSION: 1. No CT correlate for the patient's symptoms. 2. T12 burst fracture. 3. 6 mm cystic lesion of the body of the pancreas. The differential diagnosis includes pseudocyst, in traductal papillary mucinous neoplasm (IPMN), mucinous cystic neoplasm (MCN), and the less common ser ous cystadenoma and neuroendocrine tumor. Correlate for history of pancreatitis. Follow-up pancreas p rotocol CT or MRI in two years is recommended. Reviewed, dictated and finalized at location A. IMPRESSION: 1. No CT correlate for the patient's symptoms. 2. T12 burst fracture. 3. 6 mm cystic lesion of the body of the pancreas. The differential diagnosis i ncludes pseudocyst, intraductal papillary mucinous neoplasm (IPMN), mucinous cy stic neoplasm (MCN), and the less common serous cystadenoma and neuroendocrine tumor. Correlate for history of pancreatitis. Follow-up pancreas protocol CT or MRI in two years is recommended.
--- NOTE | 2022-12-21 11:35 | PC.NURSE ---
EDP at bedside to assess pt
--- NOTE | 2022-12-21 11:49 | ED.ABDPAIN ---
HPI - Abdominal Pain General Chief Complaint: Abdominal Pain <RANDI Antonio Last Filed: 12/21/22 17:30> Stated Complaint: Constipation <RANDI Antonio Last Filed: 12/21/22 17:30> Time Seen by Provider: 12/21/22 11:03 <RANDI Antonio Last Filed: 12/21/22 17:30> History of Present Illness HPI narrative: Patient is an 82-year-old female here for evaluation of constipation x8 days. Patient states that she had 1 episode of loose stool 3 days ago but has not had a solid formed bowel movement. Has tried Colace and suppositories without relief. Reports diffuse abdominal fullness but denies any significant pain. No nausea, vomiting, fevers or chills. History of hysterectomy but no other abdominal surgeries. She was diagnosed with a spontaneous T12 superior endplate fracture 8 days ago has had significant back pain ever since. She has been walking. No incontinence or retention of the bladder, saddle anesthesia or weakness in the limbs. No radicular symptoms. <RANDI Antonio Last Filed: 12/21/22 17:30> Related Data Home Medications: Home Medications Medication Instructions Recorded Confirmed calcium carbonate 600 mg calcium 600 mg PO DAILY 08/11/19 08/27/22 (1,500 mg) tablet (Calcium) anastrozole 1 mg tablet 1 mg PO DAILY 08/14/20 08/27/22 cholecalciferol (vitamin D3) 25 25 mcg PO DAILY 10/19/20 08/27/22 mcg (1,000 unit) capsule (Vitamin D3) vitamin E 268 mg (400 unit) capsule 400 unit PO DAILY 10/19/20 08/27/22 <RANDI Antonio Last Filed: 12/21/22 17:30> Allergies/Adverse Reactions: Allergies Allergy/AdvReac Type Severity Reaction Status Date / Time penicillin G Allergy Unknown Rash Verified 12/18/22 10:33 pneumococcal vaccine Allergy Unknown REDNESS Verified 12/18/22 10:33 AND SWELLING <RANDI Antonio Last Filed: 12/21/22 17:30> Review of Systems Review of Systems: Gen.: Denies fevers or chills Eyes: Denies eye pain or visual change ENT: Denies congestion Respiratory: Denies shortness of breath or cough CV: Denies chest pain or palpitations GI: Reports constipation. Denies abdominal pain nausea, emesis or diarrhea denies burning, urgency, frequency or hematuria Musculoskeletal: Reports back pain Neuro: Denies numbness, tingling, weakness or focal weakness Skin: Denies rash Except as documented, all other systems reviewed and negative <Julita Quintanilla PA-C - Last Filed: 12/21/22 17:30> [facility] Past Medical History Medical History: Medical History Extremity cyanosis Malignant neoplasm of upper-outer quadrant of left female breast <Julita Quintanilla PA-C - Last Filed: 12/21/22 17:30> Family History Family History: Family History Grandparent Diabetes mellitus Family history of type 2 diabetes mellitus Father Acute myocardial infarction Sibling Acute myocardial infarction Family history of multiple sclerosis Other Family history of cardiovascular disease <Julita Quintanilla PA-C - Last Filed: 12/21/22 17:30> Social History Social History: Social History Smoking status: Never smoker Second hand tobacco smoke exposure: No Alcohol intake: former Alcohol use details: VERY RARELY IN PAST Substance use: never Substance use type: does not use Living arrangements: alone Spiritual care concerns: No <Julita Quintanilla PA-C - Last Filed: 12/21/22 17:30> Exam Narrative: APPEARANCE: Well appearing, no pain in distress, well-nourished. Head: Normocephalic and atraumatic. EYES: PERRLA/EOMI, conjunctivae clear NOSE: No nasal drainage EARS: External ear normal in appearance THROAT: Oropharynx is clear. Mucous membranes are moist. NECK: Supple. No ad
[2022-12-21 12:13] LABS: Basophils Percent Auto 0.6 % (0.2-1.2); Eosinophils Absolute Auto 0.2 K/mm3 (0-0.3); Eosinophils Percent Auto 2.6 % (0-4.4); Hematocrit 39.6 % (37.0-47.0); Immature Granulocyte Absolute 0.03 K/mm3 (0.00-0.031); Immature Granulocyte Percent A 0.5 % (0-0.5); Lymphocytes Absolute Auto 1.12 K/mm3 (0.9-3.2); Lymphocytes Percent Auto 18.2 % (18.3-44.2); Mean Corpuscular HGB Conc 32.8 g/dl (32-36); Mean Corpuscular Hemoglobin 30.3 pg (26-34); Mean Corpuscular Volume 92.3 fl (80-100); Mean Platelet Volume 8.9 fl (7.4-10.4); Monocytes Absolute Auto 0.4 K/mm3 (0.1-0.6); Monocytes Percent Auto 7.1 % (2.6-8.5); Neutrophils Absolute Auto 4.4 K/mm3 (1.3-6.7); Platelet Count Result 208 k/mm3 (150-375); Red Blood Count 4.29 M/mm3 (4.2-5.4); Red Cell Distribution Width 12.1 % (11.5-14.5); White Blood Count 6.2 K/mm3 (4.5-10.0)
[2022-12-21 12:31] LABS: Lactic Acid Reflex 0.8 mmol/L (0.7-2.0)
[2022-12-21 12:37] LABS: Alanine Aminotransferase 16 U/L (6-35); Albumin Level 4.1 g/dL (3.5-5.1); Alkaline Phosphatase 99 U/L (38-126); Anion Gap 7 mmol/L (8-16); Aspartate Amino Transferase 22 U/L (14-36); Bilirubin,Total 0.6 mg/dL (0.2-1.3); Blood Urea Nitrogen 16 mg/dL (7-17); Calcium 9.7 mg/dL (8.4-10.2); Carbon Dioxide 30 mmol/L (22-30); Chloride 100 mmol/L (98-107); Estimated CRCL calculation 53 ml/min; Estimated Glomerular Filt Rate > 60; Glucose 90 mg/dL (65-110); Potassium 4.3 mmol/L (3.4-5.0); Sodium 137 mmol/L (137-145)
[2022-12-21 14:08] LABS: Lipase 61 U/L (23-300)
[2022-12-21] MEDS: MAGNESIUM HYDROXIDE SUSP 30 ML UDC PO (14:54)
[2022-12-21] MEDS: polyethylene glycoL 3350 17 GM POWD.PACK PO (14:54)
--- NOTE | 2022-12-21 17:09 | PC.NURSE ---
[employer] at bedside to apply back brace.
== END 2022-12-21 17:27 | disposition home or self-care (01) ==
PROVIDERS: Emergency Provider Physician Assistant; PCP Internal Medicine
DX: K59.00 Constipation, unspecified (principal); M48.54XA Collapsed vertebra, not elsewhere classified, thoracic region, initial encounter for fracture; Z85.3 Personal history of malignant neoplasm of breast; K86.89 Other specified diseases of pancreas; Z90.710 Acquired absence of both cervix and uterus
CPT/HCPCS: 36415; 74177; 80053; 83605; 83690; 85025; 99284; A9270; Q9967

== ENCOUNTER 2023-02-25 08:12 | Outpatient (CLI) | payer MEDICARE, SELFPAY ==
[2023-02-25 08:40] LABS: Alanine Aminotransferase 14 U/L (6-35); Alkaline Phosphatase 71 U/L (38-126); Anion Gap 5 mmol/L (8-16); Aspartate Amino Transferase 21 U/L (14-36); Bilirubin,Total 0.8 mg/dL (0.2-1.3); Blood Urea Nitrogen 22 mg/dL (7-17); Calcium 9.1 mg/dL (8.4-10.2); Carbon Dioxide 29 mmol/L (22-30); Chloride 103 mmol/L (98-107); Cholesterol 217 mg/dL (0-200); Estimated Glomerular Filt Rate > 60; Glucose 91 mg/dL (65-110); HDL Direct 68 mg/dL; Potassium 4.1 mmol/L (3.4-5.0); Sodium 137 mmol/L (137-145); Triglycerides 106 mg/dL (<150)
[2023-02-25 08:51] LABS: LDL Cholesterol Direct 123 mg/dL
[2023-02-25 08:59] LABS: Vitamin D 25 Hydroxy 45.3 ng/mL
== END 2023-02-25 08:13 | disposition home or self-care (01) ==
LOC: ANHLAB 08:14
PROVIDERS: PCP Family Medicine; Visit Provider Nurse Practitioner Family
DX: E78.2 Mixed hyperlipidemia (principal); Z79.899 Other long term (current) drug therapy; E55.9 Vitamin D deficiency, unspecified
CPT/HCPCS: 36415; 80053; 80061; 82306

== ENCOUNTER → 2023-04-22 10:34 | Outpatient (CLI) | payer MEDICARE, SELFPAY ==
--- NOTE | ~2023-04-22 | MR_ITS ---
EXAMINATION: MR thoracic spine wo con DATE: 04/22/2023 11:07 INDICATION: Mid back pain. Age-related osteoporosis with current pathological fracture. TECHNIQUE: Magnetic resonance imaging (MRI) of the thoracic spine was performed without intravenous c ontrast. COMPARISON: CT abdomen and pelvis 12/21/2022, chest CT 10/29/2022 FINDINGS: There is 3 degrees dextrocurvature of thoracic spine. There is kyphosis of thoracic spine. There are chronic compression fractures of T4, T6, and T7. There is a burst fracture of T12 with 2/5 loss of height, retropulsion of bone 3 mm into central spinal canal, and bone marrow edema. There is severely decreased disc height at T6-T7 with interbody fusion. There is mildly decreased disc height at T2-T3, T3-T4, and T4-T5. At T4-T5, there is a central protrusion with mild central canal stenosis. At T6-T7, there is a right central extrusion with mild central canal stenosis and ventral indentatio n of the spinal cord. At T7-T8, there is a central extrusion with mild central canal stenosis. There is multilevel facet joint osteoarthritis, severe in the upper thoracic spine. On the right, there is mild neural foraminal stenosis at T2-T3, T3-T4, and T7-T8 and moderate neural foraminal stenosis at T 11-T12. On the left, there is mild neural foraminal stenosis at T1-T2, T2-T3, T3-T4, T4-T5, T9-T10, a nd T11-T12. The spinal cord signal intensity is normal. The conus medullaris is at L1-L2. IMPRESSION: 1. Acute/subacute burst fracture of T12. 2. Mild thoracic spondylosis. Reviewed, dictated and finalized at location A.
== END ==
PROVIDERS: PCP Family Medicine; Visit Provider Pain Medicine Pain Medicine
DX: M80.08XA Age-related osteoporosis with current pathological fracture, vertebra(e), initial encounter for fracture (principal); M47.894 Other spondylosis, thoracic region; S22.082 Unstable burst fracture of T11-T12 vertebra; X58.XXXD Exposure to other specified factors, subsequent encounter
CPT/HCPCS: 72146

== ENCOUNTER 2023-06-19 09:31 | Outpatient (CLI) | payer MEDICARE, SELFPAY ==
--- NOTE | ~2023-06-19 | MM_ITS ---
EXAMINATION: MM screening eleanor BI w marc HISTORY: Screening mammogram, prior history of left breast lumpectomy. TECHNIQUE: Craniocaudal and mediolateral oblique 3-D tomosynthesis images were obtained and synthetic 2-D images were generated. CAD analysis was submitted and interpreted. COMPARISON: 03/14/2022, 09/25/2021, 03/02/2021, 02/01/2021, 11/15/2019 BREAST PARENCHYMAL COMPOSITION:The breasts are extremely dense, which lowers the sensitivity of mammo graphy. FINDINGS: There is stable architectural distortion at the upper, outer left breast, consistent with p ost cholecystectomy change. There are increasing microcalcifications centered at the area of postoper ative distortion. No suspicious mass, calcification, or architectural distortion are identified in th e right breast. IMPRESSION: Increasing calcifications at the lumpectomy site/chronic architectural distortion. These likely repre sent developing fat necrosis, but spot magnification views are recommended to better assess the calci fications. BI-RADS Category 0: Incomplete: Needs additional imaging evaluation. Reviewed, dictated and finalized at location M. IMPRESSION: Increasing calcifications at the lumpectomy site/chronic architectural distorti on. These likely represent developing fat necrosis, but spot magnification view s are recommended to better assess the calcifications. BI-RADS Category 0: Incomplete: Needs additional imaging evaluation.
== END 2023-06-19 09:32 | disposition home or self-care (01) ==
PROVIDERS: PCP Family Medicine; Visit Provider Family Medicine
DX: Z12.31 Encounter for screening mammogram for malignant neoplasm of breast (principal); R92.8 Other abnormal and inconclusive findings on diagnostic imaging of breast
CPT/HCPCS: 77063; 77067

== ENCOUNTER 2023-07-17 11:09 | Outpatient (CLI) | payer MEDICARE, SELFPAY ==
--- NOTE | ~2023-07-17 | MM_ITS ---
EXAMINATION: MM diagnostic mammo unilat LT HISTORY: Follow-up left breast calcifications TECHNIQUE: Additional 3-D tomosynthesis images of were performed and synthetic 2-D images were genera enrrique. CAD analysis was submitted and interpreted. COMPARISON: Comparison to multiple prior studies sequentially, with oldest reviewed study dated 05/2020. BREAST PARENCHYMAL COMPOSITION: The breasts are heterogeneously dense, which may obscure small masses FINDINGS: There are changes of lumpectomy in the upper outer quadrant of the left breast anteriorly. There are developing associated pleomorphic calcifications in the area of previous surgery. IMPRESSION: 1. Developing clustered pleomorphic calcifications upper outer quadrant of the left breast in area of prior lumpectomy. 2. Stereotactic left breast biopsy recommended. BI-RADS category 4, suspicious findings. Reviewed, dictated and finalized at location A. ION HOUSEKEEPER
== END 2023-07-17 11:10 | disposition home or self-care (01) ==
PROVIDERS: PCP Family Medicine; Visit Provider Physician Assistant Medical
DX: R92.8 Other abnormal and inconclusive findings on diagnostic imaging of breast (principal)
CPT/HCPCS: 77065

== ENCOUNTER 2023-08-19 12:18 | Outpatient (CLI) | payer MEDICARE, SELFPAY ==
--- NOTE | ~2023-08-19 | MM_ITS ---
MM stereotactic bx LT, MM stereotactic specimen LT, MM post biopsy diagnostic LT EXAMINATION: MM stereotactic bx LT, MM stereotactic specimen LT, MM post biopsy diagnostic LT DATE: Omid Lezama M.D. INDICATION: Left breast calcifications in the left breast. Stereotactic core biopsy is requested danielle choi for malignancy.] TECHNIQUE AND FINDINGS: The risks and potential benefits of the procedure were discussed with the patient and written informe d consent was obtained. The patient was placed in the prone position clustered at the table with the left breast in mediolateral compression, and the area of interest was localized and targeted utilizi ng digital imaging with stereotaxis. After sterile preparation of the skin, 1% lidocaine was utilized for local anesthesia at the skin pun cture site and 1% lidocaine with epinephrine was utilized for deeper local anesthesia/is about the bi opsy site. A 9G delicious vacuum assisted biopsy needle was advanced to the level of the calcification o f interest from a lateral approach utilizing stereotactic guidance and a total of 6 tissue core biops ies were obtained. A specimen radiograph demonstrates that the calcifications of interest are included within the tissue cores. A tissue marker clip was then placed at the biopsy site. The needle was removed and hemosta sis was achieved. The patient tolerated the procedure well and there is no evidence of significant i mmediate complication. The patient was given verbal as well as written postprocedural instructions p rior to discharge from the department. Tissue cores were submitted to surgical pathology for histolo gic analysis. A 2-view left unilateral digital mammogram was obtained post procedure and this demonstrates that the tissue marker clip is in expected position.] IMPRESSION: 1. Successful stereotactic biopsy of calcifications in the upper outer quadrant of the left breast, followed by tissue marker clip placement. Please refer to pathology report for histologic analysis. Reviewed, dictated and finalized at location A. NAUTICAL ENGINEERING PROFESSOR IMPRESSION: 1. Successful stereotactic biopsy of calcifications in the upper outer quadran t of the left breast, followed by tissue marker clip placement. Please refer t o pathology report for histologic analysis. IMPRESSION: 1. Successful stereotactic biopsy of calcifications in the upper outer quadran t of the left breast, followed by tissue marker clip placement. Please refer t o pathology report for histologic analysis.
== END 2023-08-19 12:19 | disposition home or self-care (01) ==
PROVIDERS: PCP Family Medicine; Visit Provider Surgery
DX: R92.0 Mammographic microcalcification found on diagnostic imaging of breast (principal); R92.8 Other abnormal and inconclusive findings on diagnostic imaging of breast; Z85.3 Personal history of malignant neoplasm of breast
CPT/HCPCS: 19081; 77065; 88305

== ENCOUNTER 2023-09-16 12:22 | Outpatient (CLI) | payer MEDICARE, SELFPAY ==
--- NOTE | ~2023-09-16 | CT_ITS ---
EXAMINATION: CT brain wo con DATE: 09/16/2023 12:42 INDICATION: Headache TECHNIQUE: Computed tomography (CT) of the head was performed without intravenous contrast. The mA wa s adjusted according to patient size. Iterative reconstruction technique was employed. Exam dose: 60 5.33 mGy-cm total exam DLP. COMPARISON: None FINDINGS: Bilateral carotid siphon internal carotid artery calcifications. There is nonspecific dimin ished attenuation of the cerebral white matter, likely due to chronic small vessel ischemic changes. There is moderate cerebellar and central and cortical cerebral volume loss not inconsistent with georges ent chronological age of 83 years. No intracranial mass lesion or hemorrhage, midline shift or mass effect or cerebral vascular accident is detected. No subdural or epidural hematoma. Approximately 1 cm polyp or mucous retention cysts of the right maxillary sinus and focal mild cyber reverse engineer ior right ethmoid soft tissue thickening. The paranasal sinuses and mastoid air cells are otherwise u nremarkable. No fracture or bone destruction of the cranial vault. IMPRESSION: Cerebral atherosclerosis and chronic small vessel ischemic changes of cerebral white mat ter Cerebral and cerebellar atrophy No acute intracranial finding Reviewed, dictated and finalized at Location A. Reviewed, dictated and finalized at location L. MANAGEMENT PHYSICIAN IMPRESSION: Cerebral atherosclerosis and chronic small vessel ischemic changes of cerebral white matter Cerebral and cerebellar atrophy No acute intracranial finding
== END 2023-09-16 12:23 | disposition home or self-care (01) ==
LOC: ANHIMG 12:24
PROVIDERS: PCP Family Medicine; Visit Provider Nurse Practitioner Family
DX: R51.9 Headache, unspecified (principal); G89.29 Other chronic pain; I67.2 Cerebral atherosclerosis
CPT/HCPCS: 70450

== ENCOUNTER 2023-10-29 08:14 | Outpatient (CLI) | payer MEDICARE, SELFPAY ==
[2023-10-29 09:16] LABS: Cholesterol 233 mg/dL (0-200); HDL Direct 65 mg/dL; Triglycerides 92 mg/dL (<150)
[2023-10-29 09:27] LABS: LDL Cholesterol Direct 132 mg/dL
== END 2023-10-29 08:15 | disposition home or self-care (01) ==
PROVIDERS: PCP Family Medicine; Visit Provider Nurse Practitioner Family
DX: E78.5 Hyperlipidemia, unspecified (principal)
CPT/HCPCS: 36415; 80061

== ENCOUNTER 2023-12-17 11:10 | Outpatient (CLI) | payer MEDICARE, SELFPAY ==
--- NOTE | ~2023-12-17 | XR_ITS ---
Thoracic spine: Clinical Indication: Back pain AP and lateral views were performed. There is mild compression fracture T12. There is normal alignment of the vertebrae. The intervertebr al disc spaces appear normal. Paravertebral soft tissues appear normal. Impression: T12 compression fracture. Reviewed, dictated and finalized at [facility]. Impression: T12 compression fracture.
== END 2023-12-17 11:11 ==
LOC: MICIMG 11:13
PROVIDERS: PCP Nurse Practitioner Family; Visit Provider Nurse Practitioner Family
DX: S22.080A Wedge compression fracture of T11-T12 vertebra, initial encounter for closed fracture (principal); X58.XXXA Exposure to other specified factors, initial encounter
CPT/HCPCS: 72070

== ENCOUNTER 2024-03-19 07:27 | Outpatient (CLI) | payer MEDICARE, SELFPAY ==
[2024-03-19 07:55] LABS: Basophils Percent Auto 0.7 % (0.2-1.2); Eosinophils Absolute Auto 0.1 K/mm3 (0-0.3); Eosinophils Percent Auto 2.4 % (0-4.4); Hematocrit 41.2 % (37.0-47.0); Hemoglobin 13.7 g/dL (12.0-15.0); Lymphocytes Absolute Auto 1.42 K/mm3 (0.9-3.2); Lymphocytes Percent Auto 30.8 % (18.3-44.2); Mean Corpuscular HGB Conc 33.3 g/dl (32-36); Mean Corpuscular Hemoglobin 30.3 pg (26-34); Mean Corpuscular Volume 91.2 fl (80-100); Mean Platelet Volume 8.7 fl (7.4-10.4); Monocytes Absolute Auto 0.3 K/mm3 (0.1-0.6); Monocytes Percent Auto 7.4 % (2.6-8.5); Neutrophils Absolute Auto 2.7 K/mm3 (1.3-6.7); Neutrophils Percent Auto 58.7 % (45.5-73.1); Platelet Count Result 181 k/mm3 (150-375); Red Blood Count 4.52 M/mm3 (4.2-5.4); Red Cell Distribution Width 12.2 % (11.5-14.5); White Blood Count 4.6 K/mm3 (4.5-10.0)
[2024-03-19 08:14] LABS: Alanine Aminotransferase 12 U/L (6-35); Albumin Level 4.2 g/dL (3.5-5.1); Alkaline Phosphatase 70 U/L (38-126); Anion Gap 7 mmol/L (4-12); Aspartate Amino Transferase 19 U/L (14-36); Bilirubin,Total 0.9 mg/dL (0.2-1.3); Blood Urea Nitrogen 24 mg/dL (7-17); Calcium 9.4 mg/dL (8.4-10.2); Carbon Dioxide 29 mmol/L (22-30); Chloride 104 mmol/L (98-107); Cholesterol 234 mg/dL (0-200); Estimated Glomerular Filt Rate > 60; Glucose 92 mg/dL (65-110); HDL Direct 70 mg/dL; Potassium 4.2 mmol/L (3.4-5.0); Sodium 140 mmol/L (137-145); Triglycerides 67 mg/dL (<150)
[2024-03-19 08:25] LABS: LDL Cholesterol Direct 132 mg/dL
[2024-03-19 08:51] LABS: Vitamin D 25 Hydroxy 64.9 ng/mL
== END 2024-03-19 07:28 | disposition home or self-care (01) ==
LOC: ANHLAB 07:30
PROVIDERS: PCP Nurse Practitioner Family; Visit Provider Nurse Practitioner Family
DX: E55.9 Vitamin D deficiency, unspecified (principal); E78.2 Mixed hyperlipidemia; M85.80 Other specified disorders of bone density and structure, unspecified site; Z79.899 Other long term (current) drug therapy; Z85.3 Personal history of malignant neoplasm of breast
CPT/HCPCS: 36415; 80053; 80061; 82306; 85025

== ENCOUNTER 2024-03-24 10:07 | Outpatient (CLI) | payer MEDICARE, SELFPAY ==
--- NOTE | ~2024-03-24 | DEXA_ITS ---
Bone Density Report Name: SANCHO DUONG Age: 83 Sex: Female Ethnicity: White Date of : 1940 Indication: osteopenia; height loss; prior fracture; cancer; hysterectomy; Referring Provider: CHRISTIAN GARCIA Study: Bone densitometry was performed. Exam Date: March 24, 2024 Accession number: [id number] Bone Density: Region BMD T-score Z-score Classification AP Spine(L1-L4) 0.896 -1.4 1.5 Osteopenia Femoral Neck (Left) 0.592 -2.3 0.2 Osteopenia Total Hip (Left) 0.805 -1.1 1.2 Osteopenia Femoral Neck (Right) 0.599 -2.3 0.3 Osteopenia Total Hip (Right) 0.725 -1.8 0.6 Osteopenia Total Hip Mean 0.765 -1.5 0.9 Osteopenia World Health Organization criteria for BMD impression classify patients as: Normal (T-score at or above -1.0), Osteopenia (T-score between -1.0 and -2.5), or Osteoporosis (T-score at or below -2.5). 10-year Fracture Risk: FRAX not reported because: Prior hip or vertebral fracture Previous Exams: Region Exam Age BMD T-score BMD Change BMD Change Date g/cm2 vs Baseline vs Previous AP Spine (L1-L4) 03/24/2024 83 0.896 -1.4 -0.028 (-3.0%) -0.028 (-3.0%) 01/18/2022 81 0.924 -1.1 Total Hip(Left) 03/24/2024 83 0.805 -1.1 0.079 (10.9%)* 0.079 (10.9%)* 01/18/2022 81 0.726 -1.8 Total Hip(Right) 03/24/2024 83 0.725 -1.8 0.005 (0.7%) 0.005 (0.7%) 01/18/2022 81 0.720 -1.8 *Denotes significance at 95% confidence level, LSC for AP Spine = 0.022 g/cm2, LSC for Total Hip = 0.027 g/cm2 Clinical Information Provided by Patient: Have had a previous hip or vertebral fracture Has had a low trauma fracture Has used the following medications: Vitamin D, Calcium Has the following medical conditions: Cancer, Hysterectomy Patient maximum height was 66 Menopause Age: 48 No regular weight bearing exercise Drinks caffeinated beverages Onset of menses at age 12 Number of children 1 Impression: The patient has low bone mass, based on the Left Femoral Neck T-score. The patient has risk factors, including: previous fracture. The BMD for the AP Spine (L1-L4) decreased, changing by -3.0% since the last DXA exam. Discussion: INCREASED RISK OF FRACTURE DUE TO HISTORY OF FRACTURE. The patient's previous fracture puts the patient at high risk of a future fracture. In untreated patients, the risk of osteoporotic fracture increases approximately two-fold for each 1.0 SD decrease in T-score. Low bone density is not the only risk
== END 2024-03-24 10:08 | disposition home or self-care (01) ==
LOC: ANHIMG 10:10
PROVIDERS: PCP Nurse Practitioner Family; Visit Provider Nurse Practitioner Family
DX: Z78.0 Asymptomatic menopausal state (principal); Z13.820 Encounter for screening for osteoporosis; M85.88 Other specified disorders of bone density and structure, other site; M85.852 Other specified disorders of bone density and structure, left thigh; M85.851 Other specified disorders of bone density and structure, right thigh
CPT/HCPCS: 77080

== ENCOUNTER 2024-07-05 11:15 | Outpatient (CLI) | payer MEDICARE, SELFPAY ==
--- NOTE | ~2024-07-05 | XR_ITS ---
XR hip RT min 2V Ordering provider: Rhea Boone APRN History: . No injury posterior right hip pain . Comparison: None. FINDINGS: BONES: No acute fracture or dislocation. HIP JOINT SPACES: Normal. Bony shadow is projected over the right femoral head which may indicate artifact or calcification in the soft tissues and less likely synovial chondromatosis. SACROILIAC JOINT SPACES/LUMBAR SPINE: The sacroiliac joint spaces are normal. Mild degenerative griffith es of the visualized lower lumbar spine. PUBIC SYMPHYSIS: Normal. SOFT TISSUES: Normal. IMPRESSION: No acute osseous abnormality pelvis and right hip. Bony shadow projected over the lateral aspect of the right hip joint. Differential as described above . Reviewed, dictated and finalized at location A. IMPRESSION: No acute osseous abnormality pelvis and right hip. Bony shadow projected over the lateral aspect of the right hip joint. Different ial as described above.
--- NOTE | ~2024-07-05 | XR_ITS ---
Right Hand Technique: PA, oblique, and lateral views were obtained. Clinical History: First metacarpal pain Findings: No acute fracture or dislocation is seen. There is severe degenerative change of the second and third DIP joints, with mild to moderate degenerative change of the fourth and fifth DIP joints, and the interphalangeal joint of the thumb.. Soft tissues are unremarkable. Impression: Degenerative changes, as above. Reviewed, dictated and finalized at location M. Impression: Degenerative changes, as above.
== END 2024-07-05 11:16 | disposition home or self-care (01) ==
PROVIDERS: PCP Family Medicine; Visit Provider Nurse Practitioner Family
DX: M79.641 Pain in right hand (principal); M79.644 Pain in right finger(s); M79.18 Myalgia, other site
CPT/HCPCS: 73130; 73502

== ENCOUNTER 2024-11-25 15:32 | Outpatient (CLI) | payer MEDICARE, SELFPAY ==
--- NOTE | ~2024-11-25 | MM_ITS ---
EXAMINATION: MM screening eleanor BI w marc HISTORY: Screening TECHNIQUE: Craniocaudal and mediolateral oblique 3-D tomosynthesis images were obtained and synthetic 2-D images were generated. CAD analysis was submitted and interpreted. COMPARISON: Comparison to multiple prior studies sequentially, with oldest reviewed study dated 03/2022. BREAST PARENCHYMAL COMPOSITION: Dense: The breasts are heterogeneously dense, which may obscure small masses FINDINGS: There is architectural distortion in the upper outer quadrant left breast, anteriorly, cons istent with previous lumpectomy for breast cancer. No new masses, calcifications or architectural dis tortion in the left breast to suggest malignancy. IMPRESSION: 1. No mammographic evidence of malignancy. 2. Recommend routine screening mammography in one year. BI-RADS Category 2: Benign finding(s). Reviewed, dictated and finalized at location B.
--- OUTSIDE RECORDS SUMMARY | 2024-11-25 15:44 | XMS_ITS | Encounter Summary ---
Author Organization [employer] Address [address] [place] [address] Care Team Providers Care Maintenance Of Way Superintendent Name Role Phone Trace Terry MD Primary Care Provider + Encounter Details Date Type Department Care Team (Late st Contact Info) Description 12/04/2005 Outpatient Historical [facility] [address] 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
--- OUTSIDE RECORDS SUMMARY | 2024-11-25 15:44 | XMS_ITS | Encounter Summary ---
Author Organization [employer] Address 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 Gender Identity Not on file Sexual Orientation Not on file documented as of this encounter Plan of Treatment Not on file documented as of this encounter Procedures Procedure Name Priority Date/Time Associated Diagnosis Comments HEMOGLOBIN AND HEMATOCRIT Routine 12/04/2005 2:22 PM CONTINUOUS CHURN BUTTERMAKER BASIC METABOLIC PANEL Routine 12/04/2005 2:22 PM CONTINUOUS CHURN BUTTERMAKER documented in this encounter Results * HEMOGLOBIN AND HEMATOCRIT (12/04/2005 2:22 PM CONTINUOUS CHURN BUTTERMAKER) HEMOGLOBIN 12.8 11.8 - 14.8 g/dL INTERFACE SYSTEM HEMATOCRIT 38.0 35.5 - 44.0 % INTERFACE SYSTEM 12/04/2005 2:22 PM CONTINUOUS CHURN BUTTERMAKER Rohan Sharif MD HEMATOLOGY ORDERABLES Final Result INTERFACE SYSTEM Refer to clinic/hospital department * (ABNORMAL) BASIC METABOLIC PANEL (12/04/2005 2:22 PM CONTINUOUS CHURN BUTTERMAKER) GLUCOSE 93 65 - 109 mg/dL INTERFACE SYSTEM CREATININE 0.7 0.4 - 1.2 mg/dL INTERFACE SYSTEM CALCIUM 9.6 8.6 - 10.2 mg/dL INTERFACE SYSTEM BUN 17 6 - 20 mg/dL INTERFACE SYSTEM SODIUM 141 135 - 145 mmol/L INTERFACE SYSTEM POTASSIUM 3.7 3.5 - 4.9 mmol/L INTERFACE SYSTEM CHLORIDE 102 96 - 108 mmol/L INTERFACE SYSTEM CO2 31(H) 22 - 30 mmol/L INTERFACE SYSTEM 12/04/2005 2:22 PM CONTINUOUS CHURN BUTTERMAKER us Rohan Sharif MD CHEMISTRY ORDERABLES Final R esult INTERFACE SYSTEM Refer to clinic/hospital department documented in this encounter Visit Diagnoses Diagnosis Perforation of tympanic membrane, unspecified- Primary documented in this encounter Care Teams Senior Managing Director Relationship Specialty Start Date End Date Trace Terry MD [address] [place] [phone] PCP - General 10/16/06 documented as of this encounter
--- OUTSIDE RECORDS SUMMARY | 2024-11-25 15:44 | XMS_ITS | Encounter Summary ---
Author Organization [facility] Address [address] [place] [address] Care Team Providers Care Job Putter Up And Ticket Preparer Name Role Phone Trace Terry MD Primary Care Provider + Encounter Details Date Type Department Care Team (Latest Contact Info) Description 05/26/2008 Outpatient Historical [facility] Leyla Sharif MD [address] [facility] [address] [place] [address] Central Perforation of Tympanic Membrane Social History Tobacco Use Types Packs/Day Years Used Date Smoking Tobacco: Never Assessed Comments Unknown Sex and Gender Information Value Date Recorded Sex Assigned at Not on file Legal Sex Female 5:25 AM HOT SHOT Gender Identity Not on file Sexual Orientation Not on file documented as of this encounter Plan of Treatment Not on file documented as of this encounter Procedures Procedure Name Priority Date/Time Associated Diagnosis Comments PATHOLOGY Routine 06/14/2008 10:34 AM CDT HEMOGLOBIN AND HEMATOCRIT Routine 06/08/2008 9:50 AM CDT BASIC METABOLIC PANEL Routine 06/08/2008 9:50 AM CDT documented in this encounter Results * PATHOLOGY (06/14/2008 10:34 AM CDT) FINAL REPORT [facility] [address], [place] [address] Patient: CANDE DUONG : 1940 Procedure Date: 06/14/2008 Accession Date: 06/14/2008 Case No: [id number] Ordering Dr: LEYLA SHARIF Case types AW, BW, FW, NW and SH are performed by [facility] [place], [place], [place] SURGICAL PATHOLOGY & NON-GYNECOLOGIC CYTOPATHOLOGY REPORT DIAGNOSIS MIDDLE EAR, RIGHT TYMPANIC MEMBRANE, TYMPANOPLASTY: - DYSTROPHIC CALCIFICATION. Specimen Description: Tympanic membrane mass. Operative Procedure: Right tympanoplasty. Patient Information/Histo ry/Diagnosis: Right tympanic membrane perforation. Gross: Received in a single container labeled aCnde Duong., tympanic membrane mass is an irregular piece of white tissue measuring 0.5 cm in greatest dimension. The entire specimen is submitted in cassette A1. LWL/LKP 06.14.2008 01:29 pm Microscopic: The slide is labeled [id number] and Cande Duong. The specimen labeled tympanic membrane mass consists of connective tissue which is partially calcified, likely dystrophic calcification. There is no inflammatory infiltration of the tissue. GL/ESTEBAN 06.16.2008 02:12 pm Staging Form: No. ELECTRONIC SIGNATURE FOR LINDA SPEARS M.D.- 06/16/08 02:24 pm INTERFACE SYSTEM 06/14/2008 10:3 4 AM CDT Leyla Sharif MD PATHOLOGY/CYTOLOGY ORDERABLE S Final Result INTERFACE SYSTEM Refer to clinic/hospital department * BASIC METABOLIC PANEL (06/08/2008 9:50 AM CDT) CHLORIDE 103 96 - 108 mmol/L [facility] GLUCOSE 84 65 - 99 mg/dL [facility] SODIUM 140 135 - 145 mmol/L [facility] GFR >60 >=60 mL/min/1.[address] [facility] Comment: Modification of Diet in Renal Disease (MDRD) study formula. Estimated GFR rate interpretative information for both Americans and non- Americans is available on the [facility] Intranet at: [email or web address] Select: Lab Policies and Procedures Select: Reference Ranges - GFR CALCIUM 9.7 8.6 - 10.2 mg/dL [facility] GFR, >60 >=60 mL/min/1.[address] [facility] CO2 28 22 - 30 mmol/L [facility] CREATININE 0.72 0.51 - 0.95 mg/dL [facility] POTASSIUM 3.7 3.5 - 4.9 mmol/L [facility] BUN 18 6 - 20 mg/dL [facility] Blood specimen (specimen) 06/08/2008 9:50 AM CDT 06/08/2008 11:05 AM CDT Leyla Sharif MD CHEMISTRY ORDERABLES Edited Performing Organization Address [facility] de Phone Number INTERFACE SYSTEM Refer to clinic/hospital department [facility] CLIA# [id number] [address] [place] [address] * HEMOGLOBIN AND HEMATOCRIT (06/08/2008 9:50 AM CDT) HEMATOCRIT 38.1 35.5 - 44.0 % [facility] HEMOGLOBIN 13.1 11.8 - 14.8 g/dL [facility] Blood specimen (specimen) 06/08/2008 9:50 AM CDT 06/08/2008 11:05 AM CDT Leyla Sharif MD HEMATOLOGY ORDERABLES Final Result Performing Organization Address [facility] Co de Phone Number INTERFACE SYSTEM Refer to clinic/hospital department [facility] CLIA# [id number] [address] [place] [address] documented in this encounter Visit Diagnoses Diagnosis Central perforation of tympanic membrane documented in this encounter Care Teams Job Putter Up And Ticket Preparer Relationship Specialty Start Date End Date Trace Terry MD [address] [place] [address] PCP - General 10/16/06 documented as of this encounter
--- OUTSIDE RECORDS SUMMARY | 2024-11-25 15:44 | XMS_ITS | Clinical Summary ---
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
--- OUTSIDE RECORDS SUMMARY | 2024-11-25 15:44 | XMS_ITS | Clinical Summary ---
Author Organization [facility] [employer] Address [address] [place] [address] Care Team Providers Care Jira Administrator Name Role Phone Trace Terry MD Primary Care Provider [phone] Source Comments [facility],non-owned Affiliates and Associated Physician Practices is amultiple site organization consisting of ambulatory clinics and hospital sitesin [place], [place] and [place]. This disclosure is being madepursuant to the Care Everywhere program and may not contain all information available regarding this patient. Last updated 18.[facility] [employer] Allergies Active Allergy Reactions Criticality Noted Date Comments Penicillins Rash 12/03/2010 Active Problems Problem Noted Date Diagnosed Date Perforation of tympanic membrane 12/03/2010 Family History Medical History Relation Name Comments Arthritis - Osteo Brother Heart Disease Brother Other Brother Peptic ulcer Di sease Heart Disease Father Arthritis - Osteo Mother Heart Disease Mother Heart Disease Sister Relation Name Status Comments Brother Father Mother Sister Social History Tobacco Use Types Packs/Day Years Used Date Smoking Tobacco: Never Alcohol Use Standard Drinks/Week Comments No 0 (1 standard drink = 0.6 oz pur e alcohol) Sex and Gender Information Value Date Recorded Sex Assigned at Not on file Gender Identity Not on file Sexual Orientation Not on file Plan of Treatment Health Maintenance Due Date Last Done Comments BONE DENSITY TESTING 1940 DTAP/TDAP/TD VACCINES (1 - Tdap) 1957 PNEUMOCOCCAL VACCINE 50+ (1 of 1 - PCV) 1988 ZOSTER VACCINE (1 of 2) 1988 Respiratory Syncytial Virus (RSV) Vaccine Pt: or over 60 yrs (1 - 1-dose 75+ series) 2013 COVID-19 VACCINE ( - season) 2024 07/23/2021, 11/28/2020, 10/19/2020 INFLUENZA VACCINE (#1) 2024 , 05/31/2019, 07/05/2018, Additional history exists DEPRESSION SCREENING 09/08/2024 MEDICARE AWV CALENDAR YEAR 2024 HEPATITIS B VACCINE Aged Out No longe r eligible based on patient's age to complete this topic HIB VACCINE Aged Out No longer eligi ble based on patient's age to complete this topic HPV VACCINE Aged Out No longer eligi ble based on patient's age to complete this topic MENINGOCOCCAL (Group B) VACCINE SHARED DECISION-MAKING Aged Out No longer eligible based on patient's age to complete this topic MENINGOCOCCAL GROUPS A/C/Y/W VACCINE Aged Out No longer eligible based on patient's age to complete this topic Care Teams Jira Administrator Relationship Specialty Start Date End Date Trace Terry MD [address] [place] [address] PCP - General 06/23/08
--- OUTSIDE RECORDS SUMMARY | 2024-11-25 15:44 | XMS_ITS | Clinical Summary ---
Author Organization [facility] Address [address] [place] [address] Phone Care Team Providers Care Export Manager Name Role Phone Teresa Nelson Rosalie CAB STATION ATTENDANT Unavailable [phone] Jadon Mccallum MD Unavailable Rhea Boone CAB STATION ATTENDANT Unavailable [phone] Jadon Mccallum MD Primary Care Provider [phone] Rosa Pantoja MD Unavailable [phone] Allergies Active Allergy Reactions Criticality Noted Date Comments Penicillins Rash Medium 12/03/2010 Medications calcium-vitamin D3-vitamin K 500 mg-1,000 unit-40 mcg tablet,chewable 10/01/2017Calcium + d, po solid 500mg-1000 Tablet, chewablePOdailyCurrent Medication 018 Active latanoprost (XALATAN) 0.005 % ophthalmic solution 020 Active Alphagan P 0.1 % drops 020 Active vitamin E (AQUASOL E) 400 unit capsule Take 1 capsule (400 Units total) by mouth Act yeni alendronate (FOSAMAX) 70 mg tablet TAKE 1 TABLET BY MOUTH ONCE WEEKLY 022 Active cholecalciferol (VITAMIN D-3) 25 mcg (1,000 unit) tablet Take 1 tablet (1,000 Units total) by mouth daily Active fluticasone propionate (FLONASE) 50 mcg/actuation nasal spray SPRAY 2 SPRAYS IN EACH NOSTRIL ONCE DAILY 024 Active anastrozole (ARIMIDEX) 1 mg tabletIndication s:Early Breast Cancer HR Positive and Postmenopausal Take 1 tablet (1 mg total) by mouth daily 90 tablet 1 025 11/02 Active anastrozole (ARIMIDEX) 1 mg tabletIndication s:Malignant neoplasm of overlapping sites of left breast in female, estrogen receptor positive (HCC) Take 1 tablet (1 mg total) by mouth daily 90 tablet 3 024 11/02 Discont inued(R eorder) Active Problems Problem Noted Date Diagnosed Date Personal history of radiation therapy 09/13/2021 Encounter for central line care 12/15/2018 Encounter for monitoring cardiotoxic drug therap y 10/27/2018 Malignant neoplasm of overla pping sites of left breast in female, estrogen receptor positive 10/05/2018 Cancer Staging:Clinical stage from 10/26/2018:Stage IB(cT2, cN0, cM0, G2, ER: Positive, [place]: Positive, HER2: Positive) - Signed by Eulogio Caicedo MD on 10/26/2018 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/30/2018 Hot flashes, menopausal 08/28/2015 Lymphoma, non-Hodgkin's 07/25/2015 Encounters Date Type Department Care Team Description 11/23/2024 Telephone [facility] Oncology [address] [place] [address] [address] [place] [address] Teresa Nelson NP 11/05/2024 Telephone [facility] Oncology [address] [place] [address] [address] [place] [address] Teresa Nelson NP 11/05/2024 Orders Only [facility] On[facility] [address] [place] [address] [address] [place] [address] ProviderEliz MD 11/03/2024 Results Follow-Up [facility] [address] [place] [address] [address] [place] [address] Mary Ramsey RN 11/02/2024 2:00 PM GOLF BALL MARKER Office Visit [facility] Oncology [address] [facility] [address] [place] [address] Teresa Nelson NP Malignant neoplasm of overlapping sites of left breast in female, estrogen receptor positive (HCC); Non-Hodgkin's lymphoma, unspecified body region, unspecified non-Hodgkin lymphoma type (HCC); retirement (current) use of aromatase inhibitors; Vitamin D deficiency 11/02/2024 1:30 PM GOLF BALL MARKER Lab [facility] [address] [place] [address] Malignant neoplasm of overlapping sites of left breast in female, estrogen receptor positive (HCC); Non-Hodgkin's lymphoma, unspecified body region, unspecified non-Hodgkin lymphoma type (HCC); retirement (current) use of aromatase inhibitors; Vitamin D deficiency 10/18/2024 Telephone [facility] Oncology [address] [place] [address] [address] [place] [address] Prerna Beaver, GEOVANNI from Last 3 Months Immunizations Immunization Administration Dates Next Due Influenza, Quadrivalent, Hig h Dose, Preservative Free, Intrr 05/10/2020 Influenza, Trivalent, High D ose, Split, Preservative Free, Intramuscular 05/31/2019,05/29/2018,06/14/2017,05/19,05/30/2015 Influenza, Unspecified 05/31/2021,07/05/2018 Moderna SARS-CoV-2 Monovalen t Vaccination (12+ YRS) 07/23/2021,11/28/2020,10/19/2020 ZOSTER Recombinant 05/12/2018,03/10/2018 Surgical History Surgery Date Site/Laterality Comments HYSTERECTOMY OOPHORECTOMY COLONOSCOPY BREAST BIOPSY BREAST LUMPECTOMY Medical History Medical History Date Comments Lymphoma (HCC) Breast cancer (HCC) Family History Medical History Relation Name Comments Diabetes Maternal Grandfather Relation Name Status Comments Maternal Grandfather Social History Tobacco Use Types Packs/Day Years Used Date Smoking Tobacco: Never Smokeless Tobacco: Never Alcohol Use Standard Drinks/Week Comments Not Currently 0 (1 standard drink = 0.6 oz pur e alcohol) rare Comments No Sex and Gender Information Value Date Recorded Sex Assigned at Not on file Legal Sex Female 12:19 PM GOLF BALL MARKER Gender Identity Not on file Sexual Orientation Not on file Obstetrics History Last Filed Vital Signs Vital Sign Reading Time Taken Comments Blood Pressure 170/81 11/02/2024 1:10 PM GOLF BALL MARKER Pulse 70 11/02/2024 1:10 PM GOLF BALL MARKER Temperature 36.2 C (97.2 F) 11/02/2024 1:10 PM GOLF BALL MARKER Respiratory Rate 18 11/02/2024 1:10 PM GOLF BALL MARKER Oxygen Saturation 100% 11/02/2024 1:10 PM GOLF BALL MARKER Inhaled Oxygen Concentration - - Weight 65.3 kg (144 lb) 11/02/2024 1:10 PM GOLF BALL MARKER Height 162.6 cm (5' 4 ) 11/02/2024 1:10 PM GOLF BALL MARKER Body Mass Index 24.72 11/02/2024 1:10 PM GOLF BALL MARKER Plan of Treatment Health Maintenance Due Date Last Done Comments Depression Screening 1940 Fall Risk Assessment 1940 DTaP/Tdap/Td Vaccine (1 - Tdap) 1949 Hepatitis B Screening 1956 Pneumococcal vaccine 65+ (1 of 2 - PCV) 1957 Well Visit 65+ 2003 Covid-19 Vaccine (8 - Modern a risk ) 11/17/2024 05/20/2024, 06/21/2023, 05/21/2022, Additional history exists Zoster Vaccine Completed 05/12/2018, 03/10/2018 Influenza Vaccine Completed 05/20/2024, , 05/16/2022, Additional history exists Medical Devices Implanted Type Area Furniture Painter Device Identifier Shelf Expiration Date Model / Serial / Lot Portacath Chest Wall Procedures Procedure Name Priority Date/Time Associated Diagnosis Comments EGFR Routine 11/02/2024 1:04 PM GOLF BALL MARKER Malignant neoplasm of overlapping sites of left breast in female, estrogen receptor positive (HCC) Non-Hodgkin's lymphoma, unspecified body region, unspecified non-Hodgkin lymphoma type (HCC) long term care pharmacist (current) use of aromatase inhibitors Vitamin D deficiency DIFFERENTIAL AUTO Routine 11/02/2024 1:0 4 PM GOLF BALL MARKER Malignant neoplasm of overlapping sites of left breast in female, estrogen receptor positive (HCC) Non-Hodgkin's lymphoma, unspecified body region, unspecified non-Hodgkin lymphoma type (HCC) retirement (current) use of aromatase inhibitors Vitamin D deficiency CBC WITH AUTO DIFFERENTIAL Routine 11/02/2024 1:04 PM GOLF BALL MARKER Malignant neoplasm of overlapping sites of left breast in female, estrogen receptor positive (HCC) Non-Hodgkin's lymphoma, unspecified body region, unspecified non-Hodgkin lymphoma type (HCC) retirement (current) use of aromatase inhibitors Vitamin D deficiency COMPREHENSIVE METABOLIC PANEL Routine 11/02/2024 1:04 PM GOLF BALL MARKER Malignant neoplasm of overlapping sites of left breast in female, estrogen receptor positive (HCC) Non-Hodgkin's lymphoma, unspecified body region, unspecified non-Hodgkin lymphoma type (HCC) long term care pharmacist (current) use of aromatase inhibitors Vitamin D deficiency VITAMIN D 25 HYDROXY Routine 11/02/2024 1:04 PM GOLF BALL MARKER Malignant neoplasm 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 73 m2 Comment: Interpretive Data Reference Interval Normal >/= 90 mL/min/1.73m2 Mildly decreased* 60 - 89 mL/min/1.73m2 Mildly to moderately decreased 45 - 59 mL/min/1.73m2 Moderately to severely decreased 30 - 44 mL/min/1.73m2 Severely decreased 15 - 29 mL/min/1.73m2 Kidney Failure < 15 mL/min/1.73m2 *Relative to young adult level Estimated glomerular filtration rate is determined by the 2020 CKD-EPI equation recommended by the National Kidney Foundation (A Unifying Approach to GFR Estimation: Recommendations of the NKF-ASK Task Force on Reassessing the Inclusion of Race in Diagnosing Kidney Disease, JASN 2020). The CKD-EPI equation should not be used for patients with unstable renal function and has not been validated in children and those over 70. Current interpretive data was last reviewed 2021. Testing performed by: [address] [address] Blood 11/02/2024 1:04 PM GOLF BALL MARKER 11/02/2024 1:08 PM GOLF BALL MARKER Teresa Nelson CAB STATION ATTENDANT LAB BLOOD ORDERABLES Final Result [facility] [address] [facility] [place] [address] * Differential, auto (11/02/2024 1:04 PM GOLF BALL MARKER) Neutrophil abs 3.0 1.5 - 6.5 K/cumm Comment:Testing performed by : [address] [address] Imm gran abs 0.0 0.0 - 0.1 K/cumm [facility] Comment:Testing performed by : [address] [address] Lymphocyte abs 1.2 0.8 - 3.3 K/cumm MAIKOL Comment:Testing performed by : [address] [address] Monocyte abs 0.4 0.2 - 0.8 K/cumm MAIKOL Comment:Testing performed by : [address] [address] Eosinophil abs 0.1 0.0 - 0.5 K/cumm MAIKOL Comment:Testing performed by : [address] [address] Basophil abs 0.0 0.0 - 0.1 K/cumm [facility] Comment:Testing performed by : [address] [address] Neutrophil pct 64.2 % [facility] Comment: Interpretive Data Percent cell count reference ranges are not reported, since discordance with absolute values may lead to misinterpretation of CBC data. Current Interpretive Data was last revised on 2017. Testing performed by: [address] [address] Imm gran pct 0.2 % [facility] Comment: Interpretive Data Percent cell count reference ranges are not reported, since discordance with absolute values may lead to misinterpretation of CBC data. Current Interpretive Data was last revised on 2017. Testing performed by: [address] [address] Lymphocyte pct 24.9 % [facility] Comment: Interpretive Data Percent cell count reference ranges are not reported, since discordance with absolute values may lead to misinterpretation of CBC data. Current Interpretive Data was last revised on 2017. Testing performed by: [address] [address] Monocyte pct 7.5 % [facility] Comment: Interpretive Data Percent cell count reference ranges are not reported, since discordance with absolute values may lead to misinterpretation of CBC data. Current Interpretive Data was last revised on 2017. Testing performed by: [address] [address] Eosinophil pct 2.6 % [facility] Comment: Interpretive Data Percent cell count reference ranges are not reported, since discordance with absolute values may lead to misinterpretation of CBC data. Current Interpretive Data was last revised on 2017. Testing performed by: [address] [address] Basophil pct 0.6 % [facility] Comment: Interpretive Data Percent cell count reference ranges are not reported, since discordance with absolute values may lead to misinterpretation of CBC data. Current Interpretive Data was last revised on 2017. Testing performed by: [address] [address] Blood 11/02/2024 1:04 PM GOLF BALL MARKER 11/02/2024 1:09 PM GOLF BALL MARKER Teresa Nelson CAB STATION ATTENDANT LAB BLOOD ORDERABLES Final Result [facility] [address] [facility] [place] [address] * (ABNORMAL) CBC with auto differential (11/02/2024 1:04 PM GOLF BALL MARKER) [facility] WBC 4.7 3.8 - 9.9 K/cumm Comment:Testing performed by : [address], [address] Hgb 12.8 11.9 - 15.5 g/dL [facility] Comment:Testing performed by : [address] [address] Hct 37.5 35.6 - 45.5 % [facility] Comment:Testing performed by : [address] [address] Plt 191 150 - 400 K/cumm [facility] Comment:Testing performed by : [address], [address] MPV 8.8(L) 9.1 - 12.3 fL [facility] Comment:Testing performed by : [address], [address] RBC 4.32 3.90 - 5.20 M/cumm [facility] Comment:Testing performed by : [address] [address] MCV 86.8 81.3 - 96.4 fL [facility] Comment:Testing performed by : [address], [address] MCH 29.6 27.1 - 33.3 pg [facility] Comment:Testing performed by : [address] [address] MCHC 34.1 32.3 - 35.7 g/dL [facility] Comment:Testing performed by : [address], [address] RDW CV 11.9 11.1 - 14.9 % [facility] Comment:Testing performed by : [address], [address] RDW SD 38.2 35.7 - 48.1 fL [facility] Comment:Testing performed by : [address] [address] NRBC abs 0.00 0.00 - 0.01 K/cumm [facility] Comment:Testing performed by : [address], [address] Blood 11/02/2024 1:04 PM GOLF BALL MARKER 11/02/2024 1:09 PM GOLF BALL MARKER Teresa Nelson CAB STATION ATTENDANT LAB BLOOD ORDERABLES Final Result Performing Organization Address City/[facility] Co de Phone Number [address] [address] * Vitamin D 25 hydroxy (11/02/2024 1:04 PM GOLF BALL MARKER) [facility] Vitamin D 25-OH 68.0 30.0 - 80.0 ng/mL Blood 11/02/2024 1:04 PM GOLF BALL MARKER 11/02/2024 2:35 PM GOLF BALL MARKER Teresa Nelson NP LAB BLOOD ORDERABLES Final Result Performing Organization Address [facility] de Phone Number [address] [address] * (ABNORMAL) Comprehensive metabolic panel (11/02/2024 1:04 PM GOLF BALL MARKER) [facility] Sodium 138 135 - 145 mmol/L Comment:Testing performed by : [address] [address] Potassium, pl 4.1 3.3 - 4.9 mmol/L [facility] Comment:Testing performed by : [address] [address] Chloride 101 97 - 110 mmol/L [facility] Comment:Testing performed by : [address] [address] CO2 27 22 - 32 mmol/L [facility] Comment:Testing performed by : [address] [address] Anion gap 10 2 - 15 mmol/L [facility] Comment:Testing performed by : [address] [address] BUN 23 6 - 25 mg/dL [facility] Comment:Testing performed by : [address] [address] Creatinine 0.60 0.60 - 1.10 mg/dL [facility] Comment:Testing performed by : [address] [address] Glucose 91 70 - 199 mg/dL [facility] Comment: Interpretive Data Fasting glucose >/= 126 mg/dl is diagnostic for diabetes. Fasting is defined as no caloric intake for at least 8 hours. Fasting glucose between 100 mg/dl to 125 mg/dl is diagnostic of prediabetes. In a patient with classic symptoms of hyperglycemia or hyperglycemic crisis, a random glucose >/= 200 mg/dl is diagnostic for diabetes. In the absence of unequivocal hyperglycemia, results should be confirmed by repeat testing. The classification and Diagnosis of Diabetes Diabetes Care 202; 46: S19-S40. Current interpretive data was last revised 2022. Testing performed by: [address] [address] Calcium 9.5 8.5 - 10.3 mg/dL [facility] Comment:Testing performed by : [address] [address] Bilirubin, total 0.5 0.1 - 1.2 mg/dL [facility] Comment:Testing performed by : [address] [address] Protein, pl 6.2(L) 6.5 - 8.5 g/dL [facility] Comment:Testing performed by : [address] [address] Albumin 4.1 3.5 - 5.0 g/dL [facility] Comment:Testing performed by : [address] [address] Alk phos 80 40 - 130 Units/L [facility] Comment:Testing performed by : [address] [address] ALT 10 7 - 45 Units/L [facility] Comment:Testing performed by : [address] [address] AST 13 10 - 45 Units/L [facility] Comment:Testing performed by : [address] [address] Blood 11/02/2024 1:04 PM GOLF BALL MARKER 11/02/2024 1:08 PM GOLF BALL MARKER Teresa Nelson NP LAB BLOOD ORDERABLES Final Result Performing Organization Address City/State/[facility] Co ct Phone Number [facility] [address] [facility] [place] [address] from Last 3 Months Insurance [employer] MEDICARE ADVANTAGE [facility] Address: [address] [address] [place] [address] [facility] REF [facility] Address: [address] [address] [place] [address] [employer]AGE Care Teams Export Manager Relationship Specialty Start Date End Date Jadon Mccallum MD [address] [facility] [address] [place] [address] PCP - General Family Practice 10/28/23 Teresa Nelson NP [address] [facility] [address] [place], [place] [id number] Nurse Practitioner Medical Oncology 10/02/22 Jadon Mccallum MD [address] [facility] [address] [place], [place] [phone] Referring Physician Family Practice 06/24/23 Rhea Boone NP [address] [facility] [address] [place], [place] [id number] Nurse Practitioner 06/24/23 Rosa Pantoja MD [address] [place], [place] [address] Radiation Oncologist Radiation Oncology 05/04/24
--- OUTSIDE RECORDS SUMMARY | 2024-11-25 15:44 | XMS_ITS | Referral Summary ---
Author Organization [facility] Address [address] [place] [address] Phone Care Team Providers Care Puff Ironer Name Role Phone Teresa Nelson CLEAT FEEDER Unavailable [phone] Jadon Mccallum MD Unavailable Rhea Boone CLEAT FEEDER Unavailable [phone] Jadon Mccallum MD Primary Care Provider [phone] Rosa Pantoja MD Unavailable [phone] Encounters Date Type Department Care Team Description 11/23/2024 Telephone [facility] Oncology [address] [place] [address] [address] [place] [address] Teresa Nelson NP 11/05/2024 Telephone [facility] Oncology [address] [place] [address] [address] [place] [address] Teresa Nelson NP 11/05/2024 Orders Only [facility] Oncology [address] [place] [address] [address] [place] [address] ProviderEliz MD 11/03/2024 Results Follow-Up [facility] Oncology [address] [place] [address] [address] [place] [address] Mary Ramsey RN 11/02/2024 1:30 PM SWITCH TECHNICIAN Lab [facility] at [address] [place] [address] Malignant neoplasm of overlapping sites of left breast in female, estrogen receptor positive (HCC); Non-Hodgkin's lymphoma, unspecified body region, unspecified non-Hodgkin lymphoma type (HCC); terminal block assembler (current) use of aromatase inhibitors; Vitamin D deficiency 11/02/2024 2:00 PM SWITCH TECHNICIAN Office Visit [facility] Oncology [address] [place] [address] [address] [place] [phone] Teresa Nelson NP Malignant neoplasm of overlapping sites of left breast in female, estrogen receptor positive (HCC); Non-Hodgkin's lymphoma, unspecified body region, unspecified non-Hodgkin lymphoma type (HCC); skilled nursing (current) use of aromatase inhibitors; Vitamin D deficiency 10/18/2024 Telephone [facility] Oncology [address] [place] [address] [address] [place] [address] Prerna Beaver, GEOVANNI from Last 3 Months Allergies Active Allergy Reactions Criticality Noted Date [...] 10/26/2018:Stage IB(cT2, cN0, cM0, G2, ER: Positive, [place]: Positive, HER2: Positive) - Signed by Eulogio Caicedo MD on 10/26/2018 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/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 Hot flashes, menopausal 08/28/2015 Lymphoma, non-Hodgkin's 07/25/2015 Immunizations Immunization Administration Dates Next Due Influenza, Quadrivalent, Hig h Dose, Preservative Free, Intrr 05/10/2020 Influenza, Trivalent, High D ose, Split, Preservative Free, Intramuscular 05/31/2019,05/29/2018,06/14/2017,05/19,05/30/2015 Influenza, Unspecified 05/31/2021,07/05/2018 Moderna SARS-CoV-2 Monovalen t Vaccination (12+ YRS) 07/23/2021,11/28/2020,10/19/2020 ZOSTER Recombinant 05/12/2018,03/10/2018 Social History Tobacco Use Types Packs/Day Years Used Date Smoking Tobacco: Never Smokeless Tobacco: Never Alcohol Use Standard Drinks/Week Comments Not Currently 0 (1 standard drink = 0.6 oz pur e alcohol) rare Comments No Sex and Gender Information Value Date Recorded Sex Assigned at Not on file Legal Sex Female 12:19 PM SWITCH TECHNICIAN Gender Identity Not on file Sexual Orientation Not on file Last Filed Vital Signs Vital Sign Reading Time Taken Comments Blood Pressure 170/81 11/02/2024 1:10 PM SWITCH TECHNICIAN Pulse 70 11/02/2024 1:10 PM SWITCH TECHNICIAN Temperature 36.2 C (97.2 F) 11/02/2024 1:10 PM SWITCH TECHNICIAN Respiratory Rate 18 11/02/2024 1:10 PM SWITCH TECHNICIAN Oxygen Saturation 100% 11/02/2024 1:10 PM SWITCH TECHNICIAN Inhaled Oxygen Concentration - - Weight 65.3 kg (144 lb) 11/02/2024 1:10 PM SWITCH TECHNICIAN Height 162.6 cm (5' 4 ) 11/02/2024 1:10 PM SWITCH TECHNICIAN Body Mass Index 24.72 11/02/2024 1:10 PM SWITCH TECHNICIAN Plan of Treatment Not on file Medical Devices Implanted Type Area [employer] Sawyer Device Identifier Shelf Expiration Date Model / Serial / Lot Portacath Chest Wall Procedures Procedure Name Priority Date/Time Associated Diagnosis Comments EGFR Routine 11/02/2024 1:04 PM SWITCH TECHNICIAN Malignant neoplasm of overlapping sites of left breast in female, estrogen receptor positive (HCC) Non-Hodgkin's lymphoma, unspecified body region, unspecified non-Hodgkin lymphoma type (HCC) terminal block assembler (current) use of aromatase inhibitors Vitamin D deficiency DIFFERENTIAL AUTO Routine 11/02/2024 1:0 4 PM SWITCH TECHNICIAN Malignant neoplasm of overlapping sites of left breast in female, estrogen receptor positive (HCC) Non-Hodgkin's lymphoma, unspecified body region, unspecified non-Hodgkin lymphoma type (HCC) terminal block assembler (current) use of aromatase inhibitors Vitamin D deficiency CBC WITH AUTO DIFFERENTIAL Routine 11/02/2024 1:04 PM SWITCH TECHNICIAN Malignant neoplasm of overlapping sites of left breast in female, estrogen receptor positive (HCC) Non-Hodgkin's lymphoma, unspecified body region, unspecified non-Hodgkin lymphoma type (HCC) terminal block assembler (current) use of aromatase inhibitors Vitamin D deficiency COMPREHENSIVE METABOLIC PANEL Routine 11/02/2024 1:04 PM SWITCH TECHNICIAN Malignant neoplasm of overlapping sites of left breast in female, estrogen receptor positive (HCC) Non-Hodgkin's lymphoma, unspecified body region, unspecified non-Hodgkin lymphoma type (HCC) skilled nursing (current) use of aromatase inhibitors Vitamin D deficiency VITAMIN D 25 HYDROXY Routine 11/02/2024 1:04 PM SWITCH TECHNICIAN Malignant neoplasm of overlapping sites of left breast in female, estrogen receptor positive (HCC) Non-Hodgkin's lymphoma, unspecified body region, unspecified non-Hodgkin lymphoma type (HCC) skilled nursing (current) use of aromatase inhibitors Vitamin D deficiency from Last 3 Months Results * eGFR (11/02/2024 1:04 PM SWITCH TECHNICIAN) Pathologist [facility] eGFR 87 >=60 mL/min/1. 73 m2 Comment: [...] was last reviewed 2021. Testing performed by: [address] [address] Blood 11/02/2024 1:04 PM SWITCH TECHNICIAN 11/02/2024 1:08 PM SWITCH TECHNICIAN Teresa Nelson CLEAT FEEDER LAB BLOOD ORDERABLES Final Result MAIKOL [address] [facility] Department [place] [address] * Differential, auto (11/02/2024 1:04 PM SWITCH TECHNICIAN) [facility] Neutrophil abs 3.0 1.5 - 6.5 K/cumm Comment:Testing performed by : [address] [address] Imm gran abs 0.0 0.0 - 0.1 K/cumm MAIKOL CARTER Comment:Testing performed by : [address], [place]., [address] Lymphocyte abs 1.2 0.8 - 3.3 K/cumm MAIKOL Comment:Testing performed by : [address], [place]., [address] Monocyte abs 0.4 0.2 - 0.8 K/cumm MAIKOL Comment:Testing performed by : [address], [place]., [address] Eosinophil abs 0.1 0.0 - 0.5 K/cumm MAIKOL Comment:Testing performed by : [address], [place]., [address] Basophil abs 0.0 0.0 - 0.1 K/cumm MAIKOL Comment:Testing performed by : [address] [address] Neutrophil pct 64.2 % MAIKOL Comment: Interpretive Data Percent cell count reference ranges are not reported, since discordance with absolute values may lead to misinterpretation of CBC data. Current Interpretive Data was last revised on 2017. Testing performed by: [address] [address] Imm gran pct 0.2 % MAIKOL Comment: Interpretive Data Percent cell count reference ranges are not reported, since discordance with absolute values may lead to misinterpretation of CBC data. Current Interpretive Data was last revised on 2017. Testing performed by: [address] [address] Lymphocyte pct 24.9 % MAIKOL Comment: Interpretive Data Percent cell count reference ranges are not reported, since discordance with absolute values may lead to misinterpretation of CBC data. Current Interpretive Data was last revised on 2017. Testing performed by: [address] [address] Monocyte pct 7.5 % MAIKOL Comment: Interpretive Data Percent cell count reference ranges are not reported, since discordance with absolute values may lead to misinterpretation of CBC data. Current Interpretive Data was last revised on 2017. Testing performed by: [address] [address] Eosinophil pct 2.6 % MAIKOL Comment: Interpretive Data Percent cell count reference ranges are not reported, since discordance with absolute values may lead to misinterpretation of CBC data. Current Interpretive Data was last revised on 2017. Testing performed by: [address] [address] Basophil pct 0.6 % MAIKOL Comment: Interpretive Data Percent cell count reference ranges are not reported, since discordance with absolute values may lead to misinterpretation of CBC data. Current Interpretive Data was last revised on 2017. Testing performed by: [address] [address] Blood 11/02/2024 1:04 PM SWITCH TECHNICIAN 11/02/2024 1:09 PM SWITCH TECHNICIAN us Teresa Nelson CLEAT FEEDER LAB BLOOD ORDERABLES Final Result Performing Organization Address City/State/[facility] Co de Phone Number MAIKOL [address] [facility] Department [place] [address] * (ABNORMAL) CBC with auto differential (11/02/2024 1:04 PM SWITCH TECHNICIAN) WBC 4.7 3.8 - 9.9 K/cumm Comment:Testing performed by : [address] [address] Hgb 12.8 11.9 - 15.5 g/dL MAIKOL CARTER Comment:Testing performed by : [address] [address] Hct 37.5 35.6 - 45.5 % MAIKOL CARTER Comment:Testing performed by : [address] [address] Plt 191 150 - 400 K/cumm MAIKOL CARTER Comment:Testing performed by : [address] [address] MPV 8.8(L) 9.1 - 12.3 fL MAIKOL CARTER Comment:Testing performed by : [address] [address] RBC 4.32 3.90 - 5.20 M/cumm MAIKOL CARTER Comment:Testing performed by : [facility], [address] [place] [address]., [address] MCV 86.8 81.3 - 96.4 fL MAIKOL CARTER Comment:Testing performed by : [address] [address] MCH 29.6 27.1 - 33.3 pg MAIKOL CARTER Comment:Testing performed by : [address] [address] MCHC 34.1 32.3 - 35.7 g/dL MAIKOL Comment:Testing performed by : [address] [address] RDW CV 11.9 11.1 - 14.9 % MAIKOL Comment:Testing performed by : [address], [address] RDW SD 38.2 35.7 - 48.1 fL MAIKOL Comment:Testing performed by : [address] [address] NRBC abs 0.00 0.00 - 0.01 K/cumm MAIKOL Comment:Testing performed by : [address], [address] Blood 11/02/2024 1:04 PM SWITCH TECHNICIAN 11/02/2024 1:09 PM SWITCH TECHNICIAN Teresa Nelson NP LAB BLOOD ORDERABLES Final Result Performing Organization Address [facility] Co de Phone Number MAIKOL [address] [facility] Department [place] [address] * Vitamin D 25 hydroxy (11/02/2024 1:04 PM SWITCH TECHNICIAN) Pathologist [facility] Vitamin D 25-OH 68.0 30.0 - 80.0 ng/mL Blood 11/02/2024 1:04 PM SWITCH TECHNICIAN 11/02/2024 2:35 PM SWITCH TECHNICIAN Teresa Nelson NP LAB BLOOD ORDERABLES Final Result Performing Organization Address City/[facility] Co de Phone Number MAIKOL [address] [facility] Department [place] [address] * (ABNORMAL) Comprehensive metabolic panel (11/02/2024 1:04 PM SWITCH TECHNICIAN) Sodium 138 135 - 145 mmol/L Comment:Testing performed by : [facility], [address] [place] [address], [place]., [address] Potassium, pl 4.1 3.3 - 4.9 mmol/L MAIKOL Comment:Testing performed by : [address], [place]., [address] Chloride 101 97 - 110 mmol/L MAIKOL Comment:Testing performed by : [address], [place]., [address] CO2 27 22 - 32 mmol/L MAIKOL Comment:Testing performed by : [address], [place]., [address] Anion gap 10 2 - 15 mmol/L MAIKOL Comment:Testing performed by : [address] [address] BUN 23 6 - 25 mg/dL MAIKOL Comment:Testing performed by : [address], [place]., [address] Creatinine 0.60 0.60 - 1.10 mg/dL MAIKOL Comment:Testing performed by : [address], [place]., [address] Glucose 91 70 - 199 mg/dL MAIKOL Comment: Interpretive Data Fasting glucose >/= 126 [...] was last revised 2022. Testing performed by: [address], [place]., [address] Calcium 9.5 8.5 - 10.3 mg/dL MAIKOL Comment:Testing performed by : [facility], [address] [place] [address]., [address] Bilirubin, total 0.5 0.1 - 1.2 mg/dL MAIKOL Comment:Testing performed by : [address] [address] Protein, pl 6.2(L) 6.5 - 8.5 g/dL MAIKOL Comment:Testing performed by : [address], [address] Albumin 4.1 3.5 - 5.0 g/dL MAIKOL Comment:Testing performed by : [address], [address] Alk phos 80 40 - 130 Units/L MAIKOL Comment:Testing performed by : [address] [address] ALT 10 7 - 45 Units/L MAIKOL Comment:Testing performed by : [address], [address] AST 13 10 - 45 Units/L MAIKOL Comment:Testing performed by : [address] [address] Blood 11/02/2024 1:04 PM SWITCH TECHNICIAN 11/02/2024 1:08 PM SWITCH TECHNICIAN Teresa Nelson CLEAT FEEDER LAB BLOOD ORDERABLES Final Result Performing Organization Address City/State/[facility] Co pa Phone Number [place] [phone] [facility] Department [place] [address] from Last [address] [place] [address] [facility] [place] [address] [facility] [place] [address] [facility] MEDICARE ADVANTAGE Care Teams Puff Ironer Relationship Specialty Start Date End Date Jadon Mccallum MD [address] [place] [address] PCP - General Family Practice 10/28/23 Teresa Nelson NP [address] [place], [place] [phone] Nurse Practitioner Medical Oncology 10/02/22 [place] [address] [place] [address] [id number] Referring Physician Family Practice 06/24/23 Rhea Boone NP [address] [facility] 1 [facility] 1 [place] [address] Nurse Practitioner 06/24/23 Rosa Pantoja MD [address] [place] [address] [address] [place], [place] [id number] Radiation Oncologist Radiation Oncology 05/04/24
--- OUTSIDE RECORDS SUMMARY | 2024-11-25 15:44 | XMS_ITS | Encounter Summary ---
Author Organization [facility] Address [address] [place] [address] Care Team Providers Care Build Automation Engineer Name Role Phone Trace Terry MD Primary Care Provider + Encounter Details Date Type Department Care Team (Late st Contact Info) Description 10/16/2006 Outpatient Historical [facility] MRI DEPT Rohan Sharif MD [address] [address] Unspecified Perforation of Tympanic Membrane (Primary Dx) Social History Tobacco Use Types Packs/Day Years Used Date Smoking Tobacco: Never Assessed Comments Unknown Sex and Gender Information Value Date Recorded Sex Assigned at Not on file Legal Sex Female 5:25 AM INSULATOR TECHNICIAN Gender Identity Not on file Sexual Orientation Not on file documented as of this encounter Plan of Treatment Not on file documented as of this encounter Visit Diagnoses Diagnosis Perforation of tympanic membrane, unspecified- Primary documented in this encounter Care Teams Build Automation Engineer Relationship Specialty Start Date End Date Trace Terry MD [address] [place] [address] PCP - General 10/16/06 documented as of this encounter
--- OUTSIDE RECORDS SUMMARY | 2024-11-25 15:44 | XMS_ITS | Encounter Summary ---
Author Organization [facility] Address [address] [place] [address] Phone Care Team Providers Care Content Management Consultant Name Role Phone Eulogio Caicedo MD Unavailable [phone] Román Cabrales DO Primary Care Provider [phone] Lake Zuniga MD PhD Unavailable [phone] Magdy Ortiz MD Unavailable [phone] Rosa Pantoja MD Unavailable [phone] Dieudonne Mora MD Unavailable [phone] Teresa Nelson SHAFT SINKER Unavailable + [phone] Nino Biggs MD Primary Care Provider [phone] Jadon Mccallum MD Unavailable [phone] Rhea Boone SHAFT SINKER Unavailable [phone] Jadon Mccallum MD Primary Care Provider [phone] Rosa Pantoja MD Unavailable [phone] Encounter Details Date Type Department Care Team (Latest Contact Info) Description 02/01/2021 Orders Only [facility] Scanning, Provider Social History Tobacco Use Types Packs/Day Years Used Date Smoking Tobacco: Never Smokeless Tobacco: Never Alcohol Use Standard Drinks/Week Comments Not Currently 0 (1 standard drink = 0.6 oz pur e alcohol) rare Comments Unknown Sex and Gender Information Value Date Recorded Sex Assigned at Not on file Legal Sex Female 12:19 PM CAGE SHIFT MANAGER Gender Identity Not on file Sexual Orientation Not on file documented as of this encounter Plan of Treatment Not on file documented as of this encounter Procedures Procedure Name Priority Date/Time Associated Diagnosis Comments SCAN - RADIOLOGY/IMAGING 02/01/2021 documented in this encounter Results * SCAN - RADIOLOGY/IMAGING (02/01/2021) Anatomical Region Laterality Modality Other us Provider Scanning Edited Result - Final documented in this encounter Visit Diagnoses Not on filedocumented in this encounter Care Teams Content Management Consultant Relationship Specialty Start Date End Date Román Cabrales DO PCP - General Internal Medicine 01/06/19 10/21/22 Nino Biggs MD [address] [id number] PCP - General Internal Medicine 10/22/22 10/27/23 Jadon Mccallum MD [address] [place] [address] [id number] PCP - General Family Practice 10/28/23 Eulogio Caicedo MD Medical Oncologist/Hematologis t Hematology and Oncology 09/30/18 03/06/21 Lake Zuniga MD PhD Consulting Physician Medical Oncology 03/07/21 1 Magdy Ortiz MD Medical Oncologist Hematology and Oncology 08/08/21 10/01/22 Rosa Pantoja MD Radiation Oncologist Radiation Oncology 09/13/21 Dieudonne Mora MD Medical Oncologist/Hematologis t Medical Oncology 03/18/22 10/01/22 Teresa Nelson NP [address] [place] [address] 180 [facility] [place], [place] [address] Nurse Practitioner Medical Oncology 10/02/22 Jadon Mccallum MD [address] [place] [address] 180 [facility] [place], [place] [address] Referring Physician Family Practice 06/24/23 Rhea Boone NP [address] [facility] 1 [facility] 1 [place], [place] [address] Nurse Practitioner 06/24/23 Rosa Pantoja MD [address] [place] [address] Radiation Oncologist Radiation Oncology 05/04/24 documented as of this encounter
--- OUTSIDE RECORDS SUMMARY | 2024-11-25 15:44 | XMS_ITS | Encounter Summary ---
Author Organization [facility] Address [address] [place] [address] Care Team Providers Care Ed Transporter Name Role Phone Trace Terry MD Primary Care Provider [phone] Encounter Details Date Type Department Care Team (Late st Contact Info) Description 08/18/2018 Lab Requisition [facility] [address] [place] [address] Social History Tobacco Use Types Packs/Day Years [...] Name Priority Date/Time Associated Diagnosis Comments PATHOLOGY TISSUE Routine 08/13/2018 9:35 AM RETAIL BEAUTY SPECIALIST documented in this encounter Results * PATHOLOGY TISSUE (08/13/2018 9:35 AM RETAIL BEAUTY SPECIALIST) Case Report Surgical Pathology Report Case: [id number] Authorizing Provider: Collected: 08/13/2018 09:35 AM Pathologist: Ella Heard MD Received: 08/18/2018 09:35 AM Specimen: Breast Biopsy, [id number] 08/19/2018 9:48 AM RETAIL BEAUTY SPECIALIST [facility] Final Diagnosis Breast, left, 1:00, needle core biopsy (OSC [id number], 08/13/18): - 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 - See description. 08/19/2018 9:48 AM RETAIL BEAUTY SPECIALIST [facility] Microscopic Description and Comment Review of the left breast core biopsy specimen reveals portions of soft tissue composed of dense fibrosis, some of which is sclerotic, and adipose tissue. The tissue is involved by two atypical cell populations. The first population is invasive and is composed of cells which are large with pleomorphic and vesicular nuclei, variably prominent nucleoli, and moderate amounts of amphophilic cytoplasm. Immunohistochemical stains are received on the block, with appropriately reactive controls. This population is positive for pancytokeratin, CK7, and GREY-3, and is negative for CK20, CD45, CD56, TTF-1, and synaptophysin. These findings are consistent with invasive ductal carcinoma, grade 3. Please see the [facility] pathology report for additional details regarding the carcinoma. A separate infiltrate is present which is composed primarily of small, monomorphic lymphoid cells with scant cytoplasm. The majority of cells are centrocytes with no increase in centroblasts identified. This infiltrate has a nodular architecture, though jessica features such as a capsule, subcapsular sinus, and well-defined germinal centers are not present, and some nodules are entirely surrounded by adipose tissue. Immunohistochemical (IHC) stains are received on the block, with appropriately reactive controls. The atypical lymphoid cells express CD45 and are negative for CD56, TTF-1, and synaptophysin. Additional IHC stains are performed on the block in the [facility] Department of Pathology, with appropriately reactive controls. The atypical cells are positive for CD20 and PAX-5. CD10 highlights the majority of B-cells, confirming germinal center origin. These B-cells are also highlighted by BCL-2. Only the background T-cells are highlighted by CD3. Overall, these findings show that in addition to the high grade invasive ductal carcinoma, there is residual/recurrent follicular lymphoma. As sampled, the lymphoma appears to be low grade (grade 1-2 of 3); however, too few tumor nodules are present for a complete centroblast count. Correlation with clinical findings is required. KR/NW 08/19/2018 9:48 AM [facility] Clinical History 08/19/2018 9:48 AM [facility] Materials Received Received are 15 slides and 1 block labeled as [id number] along with the outside pathology report. The materials originate from [facility], [address] [place] [address]. All materials are returned to the referring institution, along with a copy of our final report. 08/19/2018 9:48 AM [facility] Disclaimer The performance characteristics of all immunohistochemical and indirect immunofluorescence stains (if any) cited in this report were determined by the [facility]. Some of these tests were developed by our own laboratory and have not been cleared or approved by the US Food and Drug Administration. The FDA does not require this test to go through premarket FDA review. These tests are used for clinical purposes. They should not be regarded as investigational or for research. This laboratory is certified under the Clinical Laboratory Improvement Amendments (CLIA) as qualified to perform high complexity clinical laboratory testing. This case has been personally reviewed and interpreted by the attending (teaching) pathologist. 08/19/2018 9:48 AM [facility] Embedded Images 08/19/2018 9:48 AM [facility] Pathology/Cytolo gy BIOPSY OF BREAST / Unknown 08/13/2018 9:35 AM RETAIL BEAUTY SPECIALIST 08/18/2018 9:35 AM RETAIL BEAUTY SPECIALIST LAB - PATHOLOGY/CYTO LOGY ORDERABLES Performing Organization Address City/State/[facility] Co de Phone Number [facility] [address] [phone] documented in this encounter Visit Diagnoses Not on filedocumented in this encounter Care Teams Ed Transporter Relationship Specialty Start Date End Date Trace Terry MD [address] [place] [address] PCP - General 06/23/08 documented as of this encounter
--- OUTSIDE RECORDS SUMMARY | 2024-11-25 15:44 | XMS_ITS ---
Author Organization [facility] Address [address] [place] [address] Phone Care Team Providers Care Fractionation Supervisor Name Role Phone Teresa Nelson Rosalie RESTAURANT CASHIER Unavailable [phone] Jadon Mccallum MD Unavailable Rhea Boone RESTAURANT CASHIER Unavailable [phone] Jadon Mccallum MD Primary Care Provider [phone] Rosa Pantoja MD Unavailable [phone] Active Problems Problem Noted Date Diagnosed Date Personal history of radiation therapy 09/13/2021 Encounter for central line care 12/15/2018 Encounter for monitoring cardiotoxic drug therap y 10/27/2018 Malignant neoplasm of overla pping sites of left breast in female, estrogen receptor positive 10/05/2018 Cancer Staging:Clinical stage from 10/26/2018:Stage IB(cT2, cN0, cM0, G2, ER: Positive, ID: Positive, HER2: Positive) - Signed by Eulogio Caicedo MD on 10/26/2018 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/30/2018 Hot flashes, menopausal 08/28/2015 Lymphoma, non-Hodgkin's 07/25/2015 Current Treatment and Therapy Plans No current plan information found. Past Treatment and Therapy Plans Line Care Plan Name Start Date Discontinue Date Treatment Medications Discontinue Reason Plan Provider IV MAINTENANCE THERAPY PLAN 01/06/2019 08/29/2020 No medications scheduled. Therapy Complete Eulogio Caicedo MD Oncology Chemotherapy Treatment Plan Name Start Date Discontinue Date Treatment Medications Discontinue Reason Plan Provider Cycles Trastuzumab 21 Day Cycles (Neoadjuvant / Adjuvant) - Breast 019 05/29/2020 trastuzumab-anns (KANJINTI)trastuz umab-anns (KANJINTI) IVPB Therapy Complete Eulogio Caicedo MD 11 of 11 cycles started Trastuzumab 21 Day Cycles (Neoadjuvant / Adjuvant) - Breast 05/24/2019 trastuzumab (HERCEPTIN) Protocol Amendment/Eulogio Beyer MD Treatment not started Pertuzumab / Trastuzumab / PACLItaxel 21 Day Cycles (Neoadjuvant / Adjuvant) - Breast 11/03/19 19 05/04/2019 PACLItaxel (TAXOL) IVPB in 500 mLpertuzumab (PERJETA) IVPBtrastuzumab (HERCEPTIN) IVPB Therapy Complete Eulogio Caicedo MD 6 of 6 cycles started Oncology Supportive Care Plan Name Start Date Discontinue Date Treatment Medications Discontinue Reason Plan Provider IV MAINTENANCE THERAPY PLAN 12/16/2018 12/31/2018 No medications scheduled. Protocol Amendment/Eulogio Garza MD
--- OUTSIDE RECORDS SUMMARY | 2024-11-25 15:44 | XMS_ITS | Encounter Summary ---
Author Organization [facility] Address [address] [facility] [place] [address] Care Team Providers Care Retail Leasing Agent Name Role Phone Trace Terry MD Primary Care Provider [phone] Encounter Details Date Type Department Care Team (Late st Contact Info) Description 04/26/2019 Lab Requisition [facility] Pathology Lab [address] [place] [address] Neftaly Silvestre MD [address] [place] [address] Social History Tobacco Use Types Packs/Day Years [...] Date/Time Associated Diagnosis Comments PATHOLOGY TISSUE Routine 04/22/2019 10:0 0 AM CDT documented in this encounter Results * PATHOLOGY TISSUE (04/22/2019 10:00 AM CDT) Case Report Surgical Pathology Report Case: [id number] Authorizing Provider: Neftaly Silvestre MD Collected: 04/22/2019 10:00 AM Ordering Location: [facility] Received: 04/26/2019 01:25 PM Pathologist: Ella Heard MD Specimen: Slide Consultation, [id number] 04/28/2019 11:05 AM CDT [facility] Final Diagnosis Left axillary sentinel lymph nodes #1-4, excision (OSC [id number], 04/22/19): - No evidence of lymphoma or metastatic carcinoma. - See description. Left breast, lumpectomy with wire localization (OSC [id number], 04/22/19): - Follicular lymphoma, residual/recurrent. - No evidence of residual carcinoma. - See description. 04/28/2019 11:05 AM [facility] PATHOLOGY [facility] Microscopic Description and Comment The four sentinel lymph nodes show a mix of primary follicles with a few small germinal centers and sinus histiocytosis. No extrinsic cell populations are identified. Immunohistochemistry is performed in the [facility] Department of Pathology on block A1 given the patient's history of lymphoma to further define the immunoarchitecture. CD20 and PAX-5 are expressed by B-cells primarily located in follicles. CD3 is positive in interfollicular T-cells. A few small germinal centers are identified by CD10 and BCL-6 staining. These germinal centers are negative for BCL-2 expression. Examination of the lumpectomy specimen shows no evidence of carcinoma. There are, however, multiple small pockets of lymphocytes noted. The majority of the cells are small with cleaved nuclear borders. No significant large cell infiltrate is identified. In areas where lymphocytes are numerous enough to assess architecture, there is a suggestion of a follicular pattern. Immunohistochemistry is performed in the [facility] Department of Pathology on block E7 to assess these lymphocytes in the breast tissue given the patient's history of lymphoma. There is a mix of CD20 and BBT-2-ooarwwbz B-cells with fewer numbers of CD3-positive T-cells. BCL-6 and CD10 are positive in a significant subset of the B-cells. These germinal center B-cells show aberrant expression of BCL-2. In summary, the four sentinel lymph nodes show no evidence of lymphoma or metastatic carcinoma. The lumpectomy specimen shows foci of residual/recurrent follicular lymphoma that is low grade in morphology. There is no carcinoma identified in the submitted tissue. Clinical correlation is required. KR 04/28/2019 11:05 AM [facility] Clinical History 78 year old woman with a history of follicular lymphoma and breast carcinoma. 04/28/2019 11:05 AM [facility] Materials Received Received are 31 slides and 8 blocks labeled as [id number] along with the outside pathology report. The materials originate from [address], [place] [address]. All materials are returned to the referring institution, along with a copy of our final report. 04/28/2019 11:05 AM T [facility] PATHOLOGY LAB Disclaimer The performance characteristics of all immunohistochemical and indirect immunofluorescence stains (if any) cited in this report were determined by the Histopathology Laboratory of [facility]. Some of these tests were developed [...] and interpreted by the attending (teaching) pathologist. 04/28/2019 11:05 AM CDT [facility] PATH[facility] Embedded Images 04/28/2019 11:05 AM T [facility] PATHOLOGY LAB Pathology/Cytolo gy SURGICAL PATHOLOGY CONSULTATION AND REPORT ON REFERRED SLIDES PREPARED ELSEWHERE / Unknown 04/22/2019 10:00 AM CDT 04/26/2019 1:25 PM CDT Neftaly Silvestre MD LAB - PATHOLOGY/CYTO LOGY ORDERABLES Performing Organization Address City/State/[facility] Co de Phone Number [facility] PATHOLOGY LAB [address] [phone] documented in this encounter Visit Diagnoses Not on filedocumented in this encounter Care Teams Retail Leasing Agent Relationship Specialty Start Date End Date Trace Terry MD [address] [place] [address] PCP - General 06/23/08 documented as of this encounter
--- OUTSIDE RECORDS SUMMARY | 2024-11-25 15:44 | XMS_ITS | Continuity of Care Document ---
Author Organization [facility] Address [address] [place] [address] [place] [address] Phone Care Team Providers Care Hygiene Coordinator Name Role Phone Jonathan Fitzpatrick Unavailable Unavailable Procedures Procedure Date Office/outpatient Visit, Est Office/outpatient Visit, Est Office/outpatient Visit, Est Eye Exam Established Pt Eye Exam & Treatment Advance Directives Directive Yes / No Effective Date File Name No Information Encounters Encounter Description Practice Location Reason(s) For Visit Diagnoses Date Provider Providers Copied on Encounter Office/outpat ient Visit, [facility], [address] [place] [address] [address], [place], [place], [id number], [place] tel:[phone] [facility] No Information 3-201 0 Nanette Castillo. [address] [facility] , [address], [place], [place], [facility], . tel:[phone] Office/outpat ient Visit, [facility], [address] [place] [address] [address], [place], [place], [id number], [place] tel:[phone] [facility] No Information 2-200 9 Nanette Castillo. [address] [facility] , [address], [place], [place], [facility], . tel:[phone] Office/outpat ient Visit, [facility], [address] [place] [address] [address], [place], [place], [address], [place] tel:[phone] [facility] [place] No Information b-2 2-200 8 Jannette Caceres. [address] [facility] [place] [address], [place], [place], [facility], . tel:[phone] [facility] Eye [facility], [address], [place], [place], [id number], tel:[phone] SEC [facility] No Information Oct-0 4-200 8 Nanette Castillo. [address] [facility] , [address], [place], [place], [facility], [place]. tel:[phone] [facility] Eye [facility], [address], [place], [place], [id number], tel:[phone] [facility] No Information Sep-0 9-200 8 Nanette Edwilliam. [facility] , [address], [place], [place], [facility], . tel:[phone] Family History Family Member Type Diagnosis Age At Onset No Information Payers Payer name Insurance type Covered republican ID Authoriza tion(s) No Information Social History [...]
== END 2024-11-25 15:33 | disposition home or self-care (01) ==
LOC: ANHIMG 15:34
PROVIDERS: PCP Nurse Practitioner Family; Visit Provider Physician Assistant Medical
DX: Z12.31 Encounter for screening mammogram for malignant neoplasm of breast (principal); Z85.3 Personal history of malignant neoplasm of breast
CPT/HCPCS: 77063; 77067

== ENCOUNTER 2025-02-04 09:09 | Outpatient (CLI) | payer MEDICARE, SELFPAY ==
--- NOTE | ~2025-02-04 | XR_ITS ---
Thoracic spine: Clinical Indication: Fracture AP and lateral views were performed. Moderate T12 compression fracture present. There is normal alignment of the vertebrae. The intervert ebral disc spaces appear normal. Paravertebral soft tissues appear normal. Impression: Moderate T12 compression fracture. Reviewed, dictated and finalized at [facility]. Impression: Moderate T12 compression fracture.
--- NOTE | ~2025-02-04 | XR_ITS ---
Lumbosacral Spine: AP, oblique, and lateral views Clinical History: Pain, fracture COMPARISON: 12/18/2022 Findings: The normal lordotic curve is maintained. Moderate T12 compression fracture present, with mi ld loss of height as compared to prior exam. 5 mm anterolisthesis of L3 over L4 present. 10 mm shawanda listhesis of L4 over L5 present. There is similar to prior exam. Moderate to advanced facet arthropat hy present from L3 through S1. There are mild to moderate degenerative disc changes at the lower bord er spine. The sacroiliac joints are normally outlined. Impression: Moderate T12 compression fracture with progressive loss of height from prior exam. 5 mm anterolisthesis of L3 over L4, similar to prior exam. 10 mm anterolisthesis of L4 over L5, similar to prior exam. Moderate degenerative spondylosis of the lower lumbar spine. Reviewed, dictated and finalized at [facility]. Impression: Moderate T12 compression fracture with progressive loss of height from prior ex am. 5 mm anterolisthesis of L3 over L4, similar to prior exam. 10 mm anterolisthesis of L4 over L5, similar to prior exam. Moderate degenerative spondylosis of the lower lumbar spine.
--- OUTSIDE RECORDS SUMMARY | 2025-02-04 09:15 | XMS_ITS | Encounter Summary ---
Author Organization [facility] Address [address] [facility] [place] [address] Care Team Providers Care Rn New Graduate Name Role Phone Trace Terry MD Primary Care Provider [phone] Encounter Details Date Type Department Care Team (Late st Contact Info) Description 04/26/2019 Lab Requisition [facility] Care Pathology Lab [address] [place] [address] Neftaly Silvestre MD [address] [place] [address] Social History Tobacco Use Types Packs/Day Years Used Date Smoking Tobacco: Never Alcohol Use Standard Drinks/Week Comments No 0 (1 standard drink = 0.6 oz pur e alcohol) Comments Unknown Sex and Gender Information Value Date Recorded Sex Assigned at Not on file Legal Sex Female 7:16 PM TESTING 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 Gender Identity Not on file Sexual Orientation Not on file documented as of this encounter Plan of Treatment Not on file documented as of this encounter Procedures Procedure Name Priority Date/Time Associated Diagnosis Comments PATHOLOGY TISSUE Routine 04/22/2019 10:0 0 AM CDT documented in this encounter Results * PATHOLOGY TISSUE (04/22/2019 10:00 AM CDT) Case Report Surgical Pathology Report Case: [id number] Authorizing Provider: Neftaly Silvestre MD Collected: 04/22/2019 10:00 AM Ordering Location: [facility] Care Pathology Lab Received: 04/26/2019 01:25 PM Pathologist: Ella Heard MD Specimen: Slide Consultation, [id number] 04/28/2019 11:05 AM CDT [facility] Final Diagnosis Left axillary sentinel lymph nodes #1-4, excision (OSC [id number], 04/22/19): - No evidence of lymphoma or metastatic carcinoma. - See description. Left breast, lumpectomy with wire localization (OSC [id number], 04/22/19): - Follicular lymphoma, residual/recurrent. - No evidence of residual carcinoma. - See description. 04/28/2019 11:05 AM [facility] PATHOLOGY LAB at 1105 CDT Microscopic Description and Comment The four sentinel lymph nodes show a mix of primary follicles with a few small germinal centers and sinus histiocytosis. No extrinsic cell populations are identified. Immunohistochemistry is performed in the [facility] Department of Pathology on block A1 given [...] follicular pattern. Immunohistochemistry is performed in the [facility] Department of Pathology on block E7 to assess these lymphocytes in the breast tissue given the patient's history of lymphoma. There is a mix of CD20 and SUX-3-plcxjknq B-cells with fewer numbers of CD3-positive T-cells. [...] correlation is required. KR 04/28/2019 11:05 AM [facility] PATH[facility] Clinical History 78 year old woman with a history of follicular lymphoma and breast carcinoma. 04/28/2019 11:05 AM [facility] PATH[facility] LAB Materials Received Received are 31 slides and 8 blocks labeled as [id number] along with the outside pathology report. The materials originate from [facility], [address] [place] [address], [place] [address]. All materials are returned to the referring institution, along with a copy of our final report. 04/28/2019 11:05 AM T [facility] PATHOLOGY LAB Disclaimer The performance characteristics of all immunohistochemical and indirect immunofluorescence stains (if any) cited in this report were determined by the Histopathology Laboratory of [facility]. Some of these tests were developed by [...] the attending (teaching) pathologist. 04/28/2019 11:05 AM T [facility] PATHOLOGY LAB Embedded Images 04/28/2019 11:05 AM T [facility] PATHOLOGY LAB Pathology/Cytolo gy SURGICAL PATHOLOGY CONSULTATION AND REPORT ON REFERRED SLIDES PREPARED ELSEWHERE / Unknown 04/22/2019 10:00 AM CDT 04/26/2019 1:25 PM CDT Neftaly Silvestre MD LAB - PATHOLOGY/CYTOLOGY ORDER ION Final Result Performing Organization Address City/State/[facility] Co de Phone Number [facility] PATHOLOGY LAB [address] [phone] documented in this encounter Visit Diagnoses Not on filedocumented in this encounter Care Teams Rn New Graduate Relationship Specialty Start Date End Date Trace Terry MD [address] [place] [address] PCP - General 06/23/08 documented as of this encounter
--- OUTSIDE RECORDS SUMMARY | 2025-02-04 09:15 | XMS_ITS | Encounter Summary ---
Author Organization [facility] Address 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
--- OUTSIDE RECORDS SUMMARY | 2025-02-04 09:15 | XMS_ITS | Encounter Summary ---
Author Organization [facility] Address [address] [place] [address] Care Team Providers Care Urgent Care Nurse Practitioner Name Role Phone Trace Terry MD Primary Care Provider + Encounter Details Date Type Department Care Team (Latest Contact Info) Description 05/26/2008 Outpatient Historical [facility] Leyla Sharif MD [address] [facility] [address] [place] [address] Central Perforation of Tympanic Membrane Social History Tobacco Use Types Packs/Day Years Used Date Smoking Tobacco: Never Assessed Comments Unknown Sex and Gender Information Value Date Recorded Sex Assigned at Not on file Legal Sex Female 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 [place], [place] [address] Patient: CANDE DUONG : 1940 Procedure Date: 06/14/2008 Accession Date: 06/14/2008 Case No: [id number] Ordering Dr: LEYLA SHARIF Case types AW, BW, FW, NW and SH are performed by [facility], [place], [place] SURGICAL PATHOLOGY & NON-GYNECOLOGIC CYTOPATHOLOGY REPORT DIAGNOSIS MIDDLE EAR, RIGHT TYMPANIC MEMBRANE, TYMPANOPLASTY: - DYSTROPHIC CALCIFICATION. Specimen Description: Tympanic membrane mass. Operative Procedure: Right tympanoplasty. Patient Information/Histo ry/Diagnosis: Right tympanic membrane perforation. Gross: Received in a single container labeled Cadne Duong., tympanic membrane mass is an irregular piece of white tissue measuring 0.5 cm in greatest dimension. The entire specimen is submitted in cassette A1. LWL/LKP 06.14.2008 01:29 pm Microscopic: The slide is labeled [id number] and Cande Duong. The specimen labeled tympanic [...] CDT) CHLORIDE 103 96 - 108 mmol/L [facility] GLUCOSE 84 65 - 99 mg/dL [facility] SODIUM 140 135 - 145 mmol/L [facility] GFR >60 >=60 mL/min/1.7 sq meter [facility] Comment: Modification of Diet in Renal Disease (MDRD) study formula. Estimated GFR rate interpretative information for both Americans and non- Americans is available on the [facility] Intranet at: [email or web address] Select: Lab Policies and Procedures Select: Reference Ranges - GFR CALCIUM 9.7 8.6 - 10.2 mg/dL [facility] GFR, >60 >=60 mL/min/1.7 sq meter [facility] CO2 28 22 - 30 mmol/L [facility] CREATININE 0.72 0.51 - 0.95 mg/dL [facility] POTASSIUM 3.7 3.5 - 4.9 mmol/L [facility] BUN 18 6 - 20 mg/dL [facility] Blood specimen (specimen) 06/08/2008 9:50 AM CDT 06/08/2008 11:05 AM CDT Leyla Sharif MD CHEMISTRY ORDERABLES Edited Performing Organization Address [facility] de Phone Number INTERFACE SYSTEM Refer to clinic/hospital department [facility] CLIA# [id number] [address] [place] [address] * HEMOGLOBIN AND HEMATOCRIT (06/08/2008 9:50 AM CDT) HEMATOCRIT 38.1 35.5 - 44.0 % [facility] HEMOGLOBIN 13.1 11.8 - 14.8 g/dL [facility] Blood specimen (specimen) 06/08/2008 9:50 AM CDT 06/08/2008 11:05 AM CDT Leyla Sharif MD HEMATOLOGY ORDERABLES Final Result Performing Organization Address [facility] Co de Phone Number INTERFACE SYSTEM Refer to clinic/hospital department [facility] CLIA# [id number] [address] [place] [address] documented in this encounter Visit Diagnoses Diagnosis Central perforation of tympanic membrane documented in this encounter Care Teams Urgent Care Nurse Practitioner Relationship Specialty Start Date End Date Trace Terry MD [address] [place] [address] PCP - General 10/16/06 documented as of this encounter
--- OUTSIDE RECORDS SUMMARY | 2025-02-04 09:15 | XMS_ITS | Encounter Summary ---
Author Organization [facility] Address [address] [place] [address] Care Team Providers Care Investigative Reporter Name Role Phone Trace Terry MD Primary Care Provider [phone] Encounter Details Date Type Department Care Team (Late st Contact Info) Description 08/18/[address] 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 [place] Gender Identity Not on file Sexual Orientation Not on file documented as of this encounter Plan of Treatment Not on file documented as of this encounter Procedures Procedure Name Priority Date/Time Associated Diagnosis Comments PATHOLOGY TISSUE Routine 08/13/2018 9:35 AM CORRECTION OFFICER [place] documented in this encounter Results * PATHOLOGY TISSUE (08/13/2018 9:35 AM CORRECTION OFFICER [place]) Case Report Surgical Pathology Report Case: [id number] Authorizing Provider: Collected: 08/13/2018 09:35 AM Pathologist: Ella Heard MD Received: 08/18/2018 09:35 AM Specimen: Breast Biopsy, [id number] 08/19/2018 9:48 AM CORRECTION OFF[employer]ER [place] U PATHOLOGY LAB Final Diagnosis Breast, left, 1:00, needle core biopsy (OSC [id number], 08/13/18): - 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 - See description. 08/19/2018 9:48 AM CORRE[place] OFF[place] U PATHOLOGY LAB at 0948 CORRECTION OFF[employer] [place] Microscopic Description and Comment Review of the [...] ductal carcinoma, grade 3. Please see the [facility] pathology report for additional details [...] are performed on the block in the [facility] Department of Pathology, with appropriately reactive controls. [...] findings is required. KR/NW 08/19/2018 9:48 AM [facility] PATHOLOGY LAB Clinical History 08/19/2018 9:48 AM [facility] PATHOLOGY LAB Materials Received Received are 15 slides and 1 block labeled as [id number] along with the outside pathology report. The materials originate from [facility], [address] [place], [place] [address]. All materials are returned to the referring institution, along with a copy of our final report. 08/19/2018 9:48 AM [facility] PATHOLOGY LAB Disclaimer The performance characteristics of all immunohistochemical and indirect immunofluorescence stains (if any) cited in this report were determined by the Histopathology Laboratory of [facility]. Some of these tests were developed by [...] the attending (teaching) pathologist. 08/19/2018 9:48 AM [facility] PATHOLOGY LAB Embedded Images 08/19/2018 9:48 AM [facility] PATHOLOGY LAB Pathology/Cytolo gy BIOPSY OF BREAST / Unknown 08/13/2018 9:35 AM CORRECTION OFF[employer] [place] 08/18/2018 9:35 AM CORRECTION OFF[employer] [place] us LAB - PATHOLOGY/CYTOLOGY ORDERAB LES Final Result [facility] PATHOLOGY LAB [address] [phone] documented in this encounter Visit Diagnoses Not on filedocumented in this encounter Care Teams Investigative Reporter Relationship Specialty Start Date End Date Trace Terry MD [address] [place] [address] PCP - General 06/23/08 documented as of this encounter
--- OUTSIDE RECORDS SUMMARY | 2025-02-04 09:15 | XMS_ITS | Encounter Summary ---
Author Organization [facility] Address [address] [place] [address] Phone Care Team Providers Care Plastic Machine Operator Name Role Phone Eulogio Caicedo MD Unavailable [phone] Román Cabrales DO Primary Care Provider [phone] [place] Zuniga MD PhD Unavailable [phone] Magdy Ortiz MD Unavailable [phone] Rosa Pantoja MD Unavailable [phone] Dieudonne Mora MD Unavailable [phone] Teresa Nelson CREW CHIEF Unavailable + [phone] Nino Biggs MD Primary Care Provider [phone] Jadon Mccallum MD Unavailable [phone] Rhea Boone CREW CHIEF Unavailable [phone] Jadon Mccallum MD Primary Care Provider [phone] Rosa Pantoja MD Unavailable [phone] Encounter Details Date Type Department Care Team [...] on file Legal Sex Female 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 Gender Identity Not on file Sexual Orientation [...] on filedocumented in this encounter Care Teams Plastic Machine Operator Relationship Specialty Start Date End Date Román Cabrales DO PCP - General Internal Medicine 01/06/19 10/21/22 Nino Biggs MD [address] [id number] PCP - General Internal Medicine 10/22/22 10/27/23 Jadon Mccallum MD [address] [place] [address] [id number] PCP - General Family Practice 10/28/23 Eulogio Caicedo MD Medical Oncologist/Hematologis t Hematology and Oncology 09/30/18 03/06/21 [place]uniga MD PhD Consulting Physician Medical Oncology 03/07/21 1 Magdy Ortiz MD Medical Oncologist Hematology and Oncology 08/08/21 10/01/22 Rosa Pantoja MD Radiation Oncologist Radiation Oncology 09/13/21 Dieudonne Mora MD Medical Oncologist/Hematologis t Medical Oncology 03/18/22 10/01/22 Teresa Nelson NP [address] [place] [address] 180 [facility] 2 [place], [place] [address] Nurse Practitioner Medical Oncology 10/02/22 Jadon Mccallum MD [address] [place] [address] 180 [facility] 2 [place], [place] [address] Referring Physician Family Practice 06/24/23 Rhea Boone NP [address] [facility] 1 [place], [place] [id number] Nurse Practitioner 06/24/23 Rosa Pantoja MD [address] [place] [address] Radiation Oncologist Radiation Oncology 05/04/24 documented as of this encounter
--- OUTSIDE RECORDS SUMMARY | 2025-02-04 09:15 | XMS_ITS | Encounter Summary ---
Author Organization [facility] Address [address] [place] [address] Care Team Providers Care Hazmat Cdl A Driver Name Role Phone Trace Terry MD Primary Care Provider + Encounter Details Date Type Department Care Team (Late st Contact Info) Description 12/04/2005 Outpatient Historical [facility] Support Serv. (Adt Cardiology-[facility]) [address] [place] [address] Frankie Leal MD NO ADDRESS ON FILE Social History Tobacco Use Types Packs/Day Years Used Date Smoking Tobacco: Never Assessed Comments Unknown Sex and Gender Information Value Date Recorded Sex Assigned at Not on file Legal Sex Female 5:25 AM TRAVEL OT Gender Identity Not on file Sexual Orientation Not on file documented as of this encounter Plan of Treatment Not on file documented as of this encounter Visit Diagnoses Not on filedocumented in this encounter Care Teams Hazmat Cdl A Driver Relationship Specialty Start Date End Date Trace Terry MD [address] [place] [address] PCP - General 10/16/06 documented as of this encounter
--- OUTSIDE RECORDS SUMMARY | 2025-02-04 09:15 | XMS_ITS | Clinical Summary ---
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
--- OUTSIDE RECORDS SUMMARY | 2025-02-04 09:15 | XMS_ITS | Encounter Summary ---
Author Organization [employer] Address [address] [place] [address] Care Team Providers Care Lead Technologist In Cytogenetics Name Role Phone Trace Terry MD Primary Care Provider + Encounter Details Date Type Department Care Team (Latest Contact Info) Description 12/10/2005 Outpatient Historical [facility] Rohan Sharif MD [address] [address] Unspecified Perforation of Tympanic Membrane (Primary Dx) Social History Tobacco Use Types Packs/Day Years Used Date Smoking Tobacco: Never Assessed Comments Unknown Sex and Gender Information Value Date Recorded Sex Assigned at Not on file Legal Sex Female 5:25 AM AGRICULTURAL SERVICE TECHNICIAN Gender Identity Not on file Sexual Orientation Not on file documented as of this encounter Plan of Treatment Not on file documented as of this encounter Procedures Procedure Name Priority Date/Time Associated Diagnosis Comments HEMOGLOBIN AND HEMATOCRIT Routine 12/04/2005 2:22 PM AGRICULTURAL SERVICE TECHNICIAN BASIC METABOLIC PANEL Routine 12/04/2005 2:22 PM AGRICULTURAL SERVICE TECHNICIAN documented in this encounter Results * HEMOGLOBIN AND HEMATOCRIT (12/04/2005 2:22 PM AGRICULTURAL SERVICE TECHNICIAN) HEMOGLOBIN 12.8 11.8 - 14.8 g/dL INTERFACE SYSTEM HEMATOCRIT 38.0 35.5 - 44.0 % INTERFACE SYSTEM 12/04/2005 2:22 PM AGRICULTURAL SERVICE TECHNICIAN Rohan Sharif MD HEMATOLOGY ORDERABLES Final Result INTERFACE SYSTEM Refer to clinic/hospital department * (ABNORMAL) BASIC METABOLIC PANEL (12/04/2005 2:22 PM AGRICULTURAL SERVICE TECHNICIAN) GLUCOSE 93 65 - 109 mg/dL INTERFACE [...] 30 mmol/L INTERFACE SYSTEM 12/04/2005 2:22 PM AGRICULTURAL SERVICE TECHNICIAN us Rohan Sharif MD CHEMISTRY ORDERABLES Final R esult INTERFACE SYSTEM Refer to clinic/hospital department documented in this encounter Visit Diagnoses Diagnosis Perforation of tympanic membrane, unspecified- Primary documented in this encounter Care Teams Lead Technologist In Cytogenetics Relationship Specialty Start Date End Date Trace Terry MD [address] [place] [address] PCP - General 10/16/06 documented as of this encounter
--- OUTSIDE RECORDS SUMMARY | 2025-02-04 09:15 | XMS_ITS ---
Author Organization [facility] Address [address] [place] [address] Phone Care Team Providers Care Manager Pricing Name Role Phone Teresa Nelson Rosalie TUNNELLER Unavailable [phone] Jadon Mccallum MD Unavailable Rhea Boone TUNNELLER Unavailable [phone] Jadon Mccallum MD Primary Care Provider [phone] Rosa Pantoja MD Unavailable [phone] Active Problems Problem Noted Date Diagnosed Date Personal history of radiation therapy 09/13/2021 Encounter for central line care 12/15/2018 Encounter for monitoring cardiotoxic drug therap y 10/27/2018 Malignant neoplasm of overla pping sites of left breast in female, estrogen receptor positive 10/05/2018 Cancer Staging:Clinical stage from 10/26/2018:Stage IB(cT2, cN0, cM0, G2, ER: Positive, NM: Positive, HER2: Positive) - Signed by Eulogio [...] of 6 cycles started Oncology Supportive Care Therapy Plan Plan Name Start Date Discontinue Date Treatment Medications Discontinue Reason Plan Provider IV MAINTENANCE THERAPY PLAN 12/16/2018 12/31/2018 No medications scheduled. Protocol Amendment/Eulogio Garza MD
--- OUTSIDE RECORDS SUMMARY | 2025-02-04 09:15 | XMS_ITS | Clinical Summary ---
Author Organization [facility] [employer] Address [address] [place] [address] Care Team Providers Care Mannequin Mounter Name Role Phone Trace Terry MD Primary Care Provider [phone] Source Comments [facility],non-owned Affiliates and Associated Physician Practices is amultiple site organization consisting of ambulatory clinics and hospital sitesin [place], [place], [place] and [place]. This disclosure is being madepursuant to the Care Everywhere program and may not contain all information available regarding this patient. 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 Gender Identity Not on file Sexual Orientation [...] 1-dose 75+ series) 2013 COVID-19 VACCINE ( season) 2024 07/23/2021, 11/28/2020, 10/19/2020 DEPRESSION SCREENING 09/08/2024 MEDICARE AWV CALENDAR YEAR 2024 INFLUENZA VACCINE (Season Ended) 2025 05/31/2021, 05/31/2019, 07/05/2018, Additional history exists HEPATITIS B VACCINE Aged Out No longe [...] on patient's age to complete this topic Insurance [facility] MANAGED MEDICARE ADV SELF PAY NO INSURANCE Member Subscriber Plan / Payer (Ef fective for All Dates) Name:Cande Duong Member ID:Not on file Relation to Subscriber:Not on file Name:CANDE DUONG Subscriber ID:Not on file (Home) Address: [facility] [address] [address] Payer ID:Not on file Group ID:Not on file Type:Self Pay Address: [facility] MANAGED MEDICARE ADV Care Teams Mannequin Mounter Relationship Specialty Start Date End Date Trace Terry MD [address] [place] [address] PCP - General 06/23/08
--- OUTSIDE RECORDS SUMMARY | 2025-02-04 09:15 | XMS_ITS | Clinical Summary ---
Author Organization [facility] Address [address] [place] [address] Phone Care Team Providers Care Director Aeronautics Commission Name Role Phone Teresa Nelson Rosalie DIRECTOR OF LEARNING Unavailable [phone] Jadon Mccallum MD Unavailable Rhea Boone DIRECTOR OF LEARNING Unavailable [phone] Jadon Mccallum MD Primary Care Provider [phone] Rosa Pantoja MD Unavailable [phone] Allergies [...] daily 90 tablet 1 025 11/02 Active Active Problems Problem Noted Date Diagnosed Date Personal history of radiation therapy 09/13/2021 Encounter for central line care 12/15/2018 Encounter for monitoring cardiotoxic drug therap y 10/27/2018 Malignant neoplasm of overla pping 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 Medical Office Building 2 Radiation Oncology [address] [place] [address] Lilian Hdez PA 11/26/2024 Telephone [facility] Oncology [address] [place] [address] 180 [place] [address] Mary Ramsey, RN 11/23/2024 Telephone [facility] Oncology [address] [place] [address] 180 [place] [address] Teresa Nelson NP 11/05/2024 Telephone [facility] Oncology [address] [place] [address] 180 [place] [address] Teresa Nelson NP 11/05/2024 Orders Only [facility] Oncology [address] [place] [address] 180 [place] [address] Eliz Ramos MD from Last 3 Months Immunizations Immunization Administration [...] on file Legal Sex Female 12:19 PM CREDIT INVESTIGATOR Gender Identity Not on file Sexual Orientation Not on file Obstetrics History Last Filed Vital Signs Vital Sign Reading Time Taken Comments Blood Pressure 170/81 11/02/2024 1:10 PM CREDIT INVESTIGATOR Pulse 70 11/02/2024 1:10 PM CREDIT INVESTIGATOR Temperature 36.2 C (97.2 F) 11/02/2024 1:10 PM CREDIT INVESTIGATOR Respiratory Rate 18 11/02/2024 1:10 PM CREDIT INVESTIGATOR Oxygen Saturation 100% 11/02/2024 1:10 PM CREDIT INVESTIGATOR Inhaled Oxygen Concentration - - Weight 65.3 kg (144 lb) 11/02/2024 1:10 PM CREDIT INVESTIGATOR Height 162.6 cm (5' 4) 11/02/2024 1:10 PM CREDIT INVESTIGATOR Body Mass Index 24.72 11/02/2024 1:10 PM CREDIT INVESTIGATOR Plan of Treatment Health Maintenance Due Date Last Done Comments Depression Screening 1938 Fall Risk Assessment 1938 DTaP/Tdap/Td Vaccine (1 - Tdap) 1949 Hepatitis B Screening 1956 Pneumococcal vaccine 65+ (1 of 2 - PCV) 1957 Well Visit 65+ 2003 Covid-19 Vaccine (8 - Modern a risk ) 11/17/2024 05/20/2024, 06/21/2023, 05/21/2022, Additional history exists Zoster Vaccine Completed 05/12/2018, 03/10/2018 Osteoporosis Screening-Bone Density Scan Discontinued 03/24/2024 Influenza Vaccine Completed 05/20/2024, , 05/16/2022, Additional history exists Medical Devices Implanted Type Area Batch Records Clerk Device Identifier Shelf Expiration Date Model / Serial / Lot Portacath Chest Wall Procedures Procedure Name Priority Date/Time Associated Diagnosis Comments DEXA AXIAL SKELETON BONE DENSITY 1 OR MORE SITES Schedule Routine, Read Routine (OP Routine) 03/24/2024 8:09 AM CDT from Last 3 Months or Most Recently Relevant to Health Maintenance Results * Dexa Axial Skeleton Bone Density 1 or 2 Site (03/24/2024 8:09 AM CDT) Anatomical Region Laterality Modality Body N/A Radiographic Elva ging us Historical Provider IMG DXA PROCEDURES Final Result from Last 3 Months or Most Recently Relevant to Health Maintenance Insurance [facility] MEDICARE ADVANTAGE [facility] MDCR HMO REF [facility] MEDICARE ADVANTAGE Care Teams Director Aeronautics Commission Relationship Specialty Start Date End Date Jadon Mccallum MD [facility] [place] [address] [address] PCP - General Family Practice 10/28/23 Teresa Nelson NP [address] [place] [address] [address] Nurse Practitioner Medical Oncology 10/02/22 Jadon Mccallum MD [address] [place] [address] [address] Referring Physician Family Practice 06/24/23 Rhea Boone NP [address] [facility] 1 [facility] 1 [place], [place] [phone] Nurse Practitioner 06/24/23 Rosa Pantoja MD [facility] [address] Radiation Oncologist Radiation Oncology 05/04/24
--- OUTSIDE RECORDS SUMMARY | 2025-02-04 09:15 | XMS_ITS | Referral Summary ---
Author Organization [facility] Address [address] [place] [address] Phone Care Team Providers Care Dinkey Brakeman Name Role Phone Teresa Nelson SEWER PIPE LAYER Unavailable [phone] Jadon Mccallum MD Unavailable Rhea Boone SEWER PIPE LAYER Unavailable [phone] Jadon Mccallum MD Primary Care Provider [phone] Rosa Pantoja MD Unavailable [phone] Encounters Date Type Department Care Team Description 11/29/2024 Telephone [facility] Bone Marrow Transplant [facility] [place] [address] Coty Holliday, ALVARADO 11/29/2024 Telephone [facility] Medical Office Building 2 Radiation Oncology [address] [place] [address] Lilian Hdez PA 11/26/2024 Telephone [facility] Oncology [address] [place] [address] [address] [place] [address] Mary Ramsey, ALVARADO 11/23/2024 Telephone [facility] Oncology [address] [place] [address] [address] [place] [address] Teresa Nelson, GYPSY 11/05/2024 Telephone [facility] Oncology [address] [place] [address] [address] [place] [address] Teresa Nelson NP 11/05/2024 Orders Only [facility] Oncology [address] [facility] [address] [place] [address] Provider, MD Eliz from Last 3 Months Allergies Active Allergy [...] on file Legal Sex Female 12:19 PM CARGO VESSEL STEWARDESS Gender Identity Not on file Sexual Orientation Not on file Last Filed Vital Signs Vital Sign Reading Time Taken Comments Blood Pressure 170/81 11/02/2024 1:10 PM CARGO VESSEL STEWARDESS Pulse 70 11/02/2024 1:10 PM CARGO VESSEL STEWARDESS Temperature 36.2 C (97.2 F) 11/02/2024 1:10 PM CARGO VESSEL STEWARDESS Respiratory Rate 18 11/02/2024 1:10 PM CARGO VESSEL STEWARDESS Oxygen Saturation 100% 11/02/2024 1:10 PM CARGO VESSEL STEWARDESS Inhaled Oxygen Concentration - - Weight 65.3 kg (144 lb) 11/02/2024 1:10 PM CARGO VESSEL STEWARDESS Height 162.6 cm (5' 4) 11/02/2024 1:10 PM CARGO VESSEL STEWARDESS Body Mass Index 24.72 11/02/2024 1:10 PM CARGO VESSEL STEWARDESS Plan of Treatment Not on file Medical Devices Implanted Type Area Reticle Printer Device Identifier Shelf Expiration Date Model / [...] N/A Radiographic Elva ging us Historical Provider MD CHOWDHURY DXA PROCEDURES Final Result from Last 3 Months or Most Recently Relevant to Health Maintenance Insurance [employer] MEDICARE ADVANTAGE Member Subscriber Plan / Payer (Ef fective 2022-Present) Name:Cande Weaver Relation to Subscriber:Self Name:Cande Weaver Payer ID:[id number] (NAIC) Type:[facility] MEDICARE Address: [place] [phone] [facility] MDCR HMO REF [employer] MEDICARE ADVANTAGE Care Teams Dinkey Brakeman Relationship Specialty Start Date End Date Jadon Mccallum MD [address] [place] [address] 180 [facility] [address] [place], [place] [address] PCP - General Family Practice 10/28/23 Teresa Nelson NP [address] [place] [address] 180 [facility] [address] [place], [place] [id number] Nurse Practitioner Medical Oncology 10/02/22 Jadon Mccallum MD [address] [place] [address] 180 [facility] 2 [place], [place] [phone] Referring Physician Family Practice 06/24/23 Rhea Boone NP [address] [facility] 1 [address] [place], [place] [address] Nurse Practitioner 06/24/23 Rosa Pantoja MD [address] [place] [address] [address] [place], [place] [address] Radiation Oncologist Radiation Oncology 05/04/24
--- OUTSIDE RECORDS SUMMARY | 2025-02-04 09:15 | XMS_ITS | Continuity of Care Document ---
Author Organization [facility] Address [address] [place] [address] [place] [address] Phone Care Team Providers Care Sorting Machine Attendant Name Role Phone Jonathan Fitzpatrick Unavailable Unavailable Procedures Procedure Date Office/outpatient Visit, Est Office/outpatient Visit, Est Office/outpatient Visit, Est Eye Exam Established Pt Eye Exam & Treatment Advance Directives Directive Yes / No Effective Date File Name No Information Encounters Encounter Description Practice Location Reason(s) For Visit Diagnoses Date Provider Providers Copied on Encounter Office/outpat ient Visit, [facility], [address] [place] [address] [address], [place], [place], [id number], [place] tel:[phone] [facility] No Information 3-201 0 Nanette Castillo. [address] , [address], [place], [place], [facility], . tel:[phone] Office/outpat ient Visit, [facility], [address] [place] [address] [address], [place], [place], [id number], [place] tel:[phone] [facility] No Information 2-200 9 Nanette Castillo. [address] [facility] , [address], [place], [place], [facility], . tel:[phone] Office/outpat ient Visit, [facility], [address] [place] [address] [address], [place], [place], [id number], [place] tel:[phone] [facility] No Information b-2 2-200 8 Jannette Caceres. [address] [facility] [place] [address], [place], [place], [facility], . tel:[phone] [facility], [address], [place], [place], [id number], tel:[phone] [facility] No Information Oct-0 4-200 8 Nanette Castillo. [address] [facility] , [address], [place], [place], [facility], [place]. tel:[phone] [facility], [address], [place], [place], [id number], tel:[phone] [facility] No Information Sep-0 9-200 8 Nanette Edwilliam. [facility] , [address], [place], [place], [facility], . tel:[phone] Family History Family Member Type Diagnosis Age At Onset No Information Payers Payer name Insurance type Covered constitution party ID Authoriza tion(s) No Information Social [...]
== END 2025-02-04 09:10 | disposition home or self-care (01) ==
PROVIDERS: PCP Nurse Practitioner Family; Visit Provider Nurse Practitioner Family
DX: S22.080A Wedge compression fracture of T11-T12 vertebra, initial encounter for closed fracture (principal); X58.XXXA Exposure to other specified factors, initial encounter; R29.890 Loss of height; M43.16 Spondylolisthesis, lumbar region; M47.816 Spondylosis without myelopathy or radiculopathy, lumbar region
CPT/HCPCS: 72072; 72110

== ENCOUNTER 2025-02-28 15:31 | Outpatient (CLI) | payer MEDICARE, SELFPAY ==
--- NOTE | ~2025-02-28 | XR_ITS ---
EXAM/ PROCEDURE: XR lumbar spine 2-3V - 02/28/2025 15:38 CDT HISTORY: 84 years old Female with Other low back pain COMPARISON: None available TECHNIQUE: Three view(s) FINDINGS/ IMPRESSION: There are no fractures or dislocations.Multilevel degenerative changes are seen. Grade 1 anterolisthe sis of L3 on L4 and L4 on L5, likely degenerative. Reviewed, dictated and finalized at location [facility].
--- NOTE | ~2025-02-28 | XR_ITS ---
HISTORY: Other low back pain COMPARISON: 02/04/2025 TECHNIQUE: 2 views resting spine were performed FINDINGS: Redemonstration of compression of the superior endplate of T12. No acute compression fracture is present. Diffuse bony demineralization is redemonstrated. Moderate degenerative disease, with osteophyte formation, disc space narrowing and endplate changes. IMPRESSION: Unremarkable radiographic evaluation of the thoracic spine, as detailed above. Reviewed, dictated and finalized at location A.
== END 2025-02-28 15:32 | disposition home or self-care (01) ==
LOC: MICIMG 15:33
PROVIDERS: PCP Nurse Practitioner Family; Visit Provider Nurse Practitioner Family
DX: M54.6 Pain in thoracic spine (principal); M54.59 Other low back pain
CPT/HCPCS: 72070; 72100

== ENCOUNTER 2025-04-07 11:31 | Outpatient (CLI) | payer MEDICARE, SELFPAY ==
--- OUTSIDE RECORDS SUMMARY | 2025-04-07 11:36 | XMS_ITS | Encounter Summary ---
Author Organization [facility] Address 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
--- OUTSIDE RECORDS SUMMARY | 2025-04-07 11:36 | XMS_ITS | Encounter Summary ---
Author Organization [facility] Address [address] [place] [address] Care Team Providers Care Nutrition Aides Teacher Name Role Phone Trace Terry MD Primary Care Provider [phone] Encounter Details Date Type Department Care Team (Late st Contact Info) Description 04/26/2019 Lab Requisition [facility] Care Pathology Lab [address] [place] [address] Neftaly Silvestre MD [address] [place] [address] Social History Tobacco Use Types Packs/Day Years Used Date Smoking Tobacco: Never Alcohol Use Standard Drinks/Week Comments No 0 (1 standard drink = 0.6 oz pur e alcohol) Comments Unknown Sex and Gender Information Value Date Recorded Sex Assigned at Not on file Legal Sex Female 7:16 PM STONE DRILLER 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 Gender Identity Not on file Sexual Orientation Not on file documented as of this encounter Plan of Treatment Not on file documented as of this encounter Procedures Procedure Name Priority Date/Time Associated Diagnosis Comments PATHOLOGY TISSUE Routine 04/22/2019 10:0 0 AM CDT documented in this encounter Results * PATHOLOGY TISSUE (04/22/2019 10:00 AM CDT) Case Report Surgical Pathology Report Case: [id number] Authorizing Provider: Neftaly Silvestre MD Collected: 04/22/2019 10:00 AM Ordering Location: [facility] Care Pathology Lab Received: 04/26/2019 01:25 PM Pathologist: Ella Heard MD Specimen: Slide Consultation, [id number] 04/28/2019 11:05 AM CDT [facility] Final Diagnosis Left axillary sentinel lymph nodes #1-4, excision ([facility]C [id number], 04/22/19): - No evidence of lymphoma or metastatic carcinoma. - See description. Left breast, lumpectomy with wire localization ([facility] [id number], 04/22/19): - Follicular lymphoma, residual/recurrent. - No evidence of residual carcinoma. - See description. 04/28/2019 11:05 AM [facility] PATHOLOGY LAB at 1105 CDT Microscopic Description and Comment The four sentinel lymph nodes show a mix of primary follicles with a few small germinal centers and sinus histiocytosis. No extrinsic cell populations are identified. Immunohistochemistry is performed in the [facility] Department of Pathology on block A1 [...] follicular pattern. Immunohistochemistry is performed in the [facility] Department of Pathology on block E7 to assess these lymphocytes in the breast tissue given the patient's history of lymphoma. There is a mix of CD20 and SEM-4-mnumxapi B-cells with fewer numbers of CD3-positive T-cells. [...] correlation is required. KR 04/28/2019 11:05 AM [facility] PATHOLOGY LAB Clinical History 78 year old woman with a history of follicular lymphoma and breast carcinoma. 04/28/2019 11:05 AM [facility] PATHOLOGY LAB Materials Received Received are 31 slides and 8 blocks labeled as [id number] along with the outside pathology report. The materials originate from [facility], [address] [place] [address], [place] [address]. All materials are returned to the referring institution, along with a copy of our final report. 04/28/2019 11:05 AM T [facility] PATHOLOGY LAB Disclaimer The performance characteristics of all immunohistochemical and indirect immunofluorescence stains (if any) cited in this report were determined by the Histopathology Laboratory of [facility]. Some of these tests were [...] attending (teaching) pathologist. 04/28/2019 11:05 AM T [facility] PATHOLOGY LAB Embedded Images 04/28/2019 11:05 AM T [facility] PATHOLOGY LAB Pathology/Cytolo gy SURGICAL PATHOLOGY CONSULTATION AND REPORT ON REFERRED SLIDES PREPARED ELSEWHERE / Unknown 04/22/2019 10:00 AM CDT 04/26/2019 1:25 PM CDT Neftaly Silvestre MD LAB - PATHOLOGY/CYTOLOGY ORDER ION Final Result Performing Organization Address City/State/[facility] Co de Phone Number [facility] PATHOLOGY LAB [address] [phone] documented in this encounter Visit Diagnoses Not on filedocumented in this encounter Care Teams Nutrition Aides Teacher Relationship Specialty Start Date End Date Trace Terry MD [address] [place] [address] PCP - General 06/23/08 documented as of this encounter
--- OUTSIDE RECORDS SUMMARY | 2025-04-07 11:36 | XMS_ITS | Clinical Summary ---
Author Organization [facility] Address [address] [place] [address] Phone Care Team Providers Care Easter Bunny Name Role Phone Teresa Nelson Rosalie 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 Unavailable [phone] Jadon Mccallum MD Unavailable Rhea Boone 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 Unavailable [phone] Jadon Mccallum MD Primary Care Provider [phone] Rosa Pantoja MD Unavailable [phone] Allergies [...] 10/26/2018:Stage IB(cT2, cN0, cM0, G2, ER: Positive, OK: Positive, HER2: Positive) - Signed by Eulogio [...] on file Legal Sex Female 12:19 PM HAND FLESHER Gender Identity Not on file Sexual Orientation Not on file Obstetrics History Last Filed Vital Signs Vital Sign Reading Time Taken Comments Blood Pressure 170/81 11/02/2024 1:10 PM HAND FLESHER Pulse 70 11/02/2024 1:10 PM HAND FLESHER Temperature 36.2 C (97.2 F) 11/02/2024 1:10 PM HAND FLESHER Respiratory Rate 18 11/02/2024 1:10 PM HAND FLESHER Oxygen Saturation 100% 11/02/2024 1:10 PM HAND FLESHER Inhaled Oxygen Concentration - - Weight 65.3 kg (144 lb) 11/02/2024 1:10 PM HAND FLESHER Height 162.6 cm (5' 4) 11/02/2024 1:10 PM HAND FLESHER Body Mass Index 24.72 11/02/2024 1:10 PM HAND FLESHER Plan of Treatment Health Maintenance Due Date Last Done Comments Depression Screening 1940 Fall Risk Assessment 1940 DTaP/Tdap/Td Vaccine (1 - Tdap) 1949 Hepatitis B Screening 1956 Pneumococcal vaccine 65+ (1 of 2 - PCV) 1957 Well Visit 65+ 2003 Covid-19 Vaccine (8 - Modern a risk ) 11/17/2024 05/20/2024, 06/21/2023, 05/21/2022, Additional history exists Influenza Vaccine (#1) 2025 , 05/21/2023, 05/16/2022, Additional history exists Osteoporosis Screening-Bone Density Scan 03/24/2026 03/24/2024 Zoster Vaccine Completed 05/12/2018, 03/10/2018 Medical Devices Implanted Type Area Investigative Shopper Device Identifier Shelf Expiration Date Model / [...] Laterality Modality Body N/A Radiographic Elva ging Historical Provider MD CHOW[place]UR[place] DXA PROCEDURES Final Result from Last 3 Months or Most Recently Relevant to Health Maintenance Insurance [facility] MEDIC[facility] U[employer] MEDICARE ADVANTAGE Care Teams Easter Bunny Relationship Specialty Start Date End Date Jadon Mccallum MD [address] [place] [address] PCP - General Family Practice 10/28/23 Teresa Nelson NP [address] [place] [address] Nurse Practitioner Medical Oncology 10/02/22 Jadon Mccallum MD [address] [place] [address] Referring Physician Family Practice 06/24/23 Rhea Boone NP [address] [facility] [address] [address] Nurse Practitioner 06/24/23 Rosa Pantoja MD [address] [place] [address] Radiation Oncologist Radiation Oncology 05/04/24
--- OUTSIDE RECORDS SUMMARY | 2025-04-07 11:36 | XMS_ITS | Clinical Summary ---
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
--- OUTSIDE RECORDS SUMMARY | 2025-04-07 11:36 | XMS_ITS ---
Author Organization [facility] Address [address] [place] [address] Phone Care Team Providers Care Head Boys Tennis Coach Name Role Phone Teresa Nelson Rosalie DEMONSTRATOR SEWING TECHNIQUES Unavailable [phone] Jadon Mccallum MD Unavailable Rhea Boone DEMONSTRATOR SEWING TECHNIQUES Unavailable [phone] Jadon Mccallum MD Primary Care Provider [phone] Rosa Pantoja MD Unavailable [phone] Active Problems Problem Noted Date Diagnosed Date Personal history of radiation therapy 09/13/2021 Encounter for central line care 12/15/2018 Encounter for monitoring cardiotoxic drug therap y 10/27/2018 Malignant neoplasm of overla pping sites of left breast in female, estrogen receptor positive 10/05/2018 Cancer Staging:Clinical stage from 10/26/2018:Stage IB(cT2, cN0, cM0, G2, ER: Positive, NC: Positive, HER2: Positive) - Signed by Eulogio [...]
--- OUTSIDE RECORDS SUMMARY | 2025-04-07 11:36 | XMS_ITS | Encounter Summary ---
Author Organization [facility] Address [address] [place] [address] Care Team Providers Care Market Research Specialist Name Role Phone Trace Terry MD Primary Care Provider + Encounter Details Date Type Department Care Team (Latest Contact Info) Description 05/26/2008 Outpatient Historical [facility] Leyla Sharif MD [address] [facility] [address] [place] [address] Central Perforation of Tympanic Membrane Social History Tobacco Use Types Packs/Day Years Used Date Smoking Tobacco: Never Assessed Comments Unknown Sex and Gender Information Value Date Recorded Sex Assigned at Not on file Legal Sex Female 5:25 AM AGILE SCRUM MASTER Gender Identity Not on file Sexual Orientation [...] PATHOLOGY (06/14/2008 10:34 AM CDT) FINAL REPORT [facility] [address], [place] [address] Patient: CANDE DUONG : 1940 Procedure Date: 06/14/2008 Accession Date: 06/14/2008 Case No: [id number] Ordering Dr: LEYLA SHARIF Case types AW, BW, FW, NW and SH are performed by [facility], [place], [place] SURGICAL PATHOLOGY & NON-GYNECOLOGIC CYTOPATHOLOGY REPORT DIAGNOSIS MIDDLE EAR, RIGHT TYMPANIC MEMBRANE, TYMPANOPLASTY: - DYSTROPHIC CALCIFICATION. Specimen Description: Tympanic membrane mass. Operative Procedure: Right tympanoplasty. Patient Information/Histo ry/Diagnosis: Right tympanic membrane perforation. Gross: Received in a single container labeled Cande Duong., tympanic membrane mass is an irregular piece of white tissue measuring 0.5 cm in greatest dimension. The entire specimen is submitted in cassette A1. LWL/LKP 06.14.2008 01:29 pm Microscopic: The slide is labeled [id number] and Cande Duong. The specimen labeled tympanic [...] CDT) CHLORIDE 103 96 - 108 mmol/L [facility] GLUCOSE 84 65 - 99 mg/dL [facility] SODIUM 140 135 - 145 mmol/L [facility] GFR >60 >=60 mL/min/1.7 sq meter [facility] Comment: Modification of Diet in Renal Disease (MDRD) study formula. Estimated GFR rate interpretative information for both Americans and non- Americans is available on the [facility] Intranet at: [email or web address] Select: Lab Policies and Procedures Select: Reference Ranges - GFR CALCIUM 9.7 8.6 - 10.2 mg/dL [facility] GFR, >60 >=60 mL/min/1.7 sq meter [facility] CO2 28 22 - 30 mmol/L [facility] CREATININE 0.72 0.51 - 0.95 mg/dL [facility] POTASSIUM 3.7 3.5 - 4.9 mmol/L [facility] BUN 18 6 - 20 mg/dL [facility] Blood specimen (specimen) 06/08/2008 9:50 AM CDT 06/08/2008 11:05 AM CDT Leyla Sharif MD CHEMISTRY ORDERABLES Edited Performing Organization Address [facility] de Phone Number INTERFACE SYSTEM Refer to clinic/hospital department [facility] CLIA# [id number] [address] [place] [address] * HEMOGLOBIN AND HEMATOCRIT (06/08/2008 9:50 AM CDT) HEMATOCRIT 38.1 35.5 - 44.0 % [facility] HEMOGLOBIN 13.1 11.8 - 14.8 g/dL [facility] Blood specimen (specimen) 06/08/2008 9:50 AM CDT 06/08/2008 11:05 AM CDT Leyla Sharif MD HEMATOLOGY ORDERABLES Final Result Performing Organization Address [facility] Co de Phone Number INTERFACE SYSTEM Refer to clinic/hospital department [facility] CLIA# [id number] [address] [place] [address] documented in this encounter Visit Diagnoses Diagnosis Central perforation of tympanic membrane documented in this encounter Care Teams Market Research Specialist Relationship Specialty Start Date End Date Trace Terry MD [address] [place] [address] PCP - General 10/16/06 documented as of this encounter
--- OUTSIDE RECORDS SUMMARY | 2025-04-07 11:36 | XMS_ITS | Referral Summary ---
Author Organization [facility] Address [address] [place] [address] Phone Care Team Providers Care Physician Obstetrician Name Role Phone Teresa Nelson Rosalie E COMMERCE PROJECT MANAGER Unavailable [phone] Jadon Mccallum MD Unavailable Rhea Boone E COMMERCE PROJECT MANAGER Unavailable [phone] Jadon Mccallum MD Primary Care Provider [phone] Rosa Pantoja MD Unavailable [phone] Allergies [...] on file Legal Sex Female 12:19 PM MANAGER MEDICAL Gender Identity Not on file Sexual Orientation Not on file Last Filed Vital Signs Vital Sign Reading Time Taken Comments Blood Pressure 170/81 11/02/2024 1:10 PM MANAGER MEDICAL Pulse 70 11/02/2024 1:10 PM MANAGER MEDICAL Temperature 36.2 C (97.2 F) 11/02/2024 1:10 PM MANAGER MEDICAL Respiratory Rate 18 11/02/2024 1:10 PM MANAGER MEDICAL Oxygen Saturation 100% 11/02/2024 1:10 PM MANAGER MEDICAL Inhaled Oxygen Concentration - - Weight 65.3 kg (144 lb) 11/02/2024 1:10 PM MANAGER MEDICAL Height 162.6 cm (5' 4) 11/02/2024 1:10 PM MANAGER MEDICAL Body Mass Index 24.72 11/02/2024 1:10 PM MANAGER MEDICAL Plan of Treatment Not on file Medical Devices Implanted Type Area Java Lead Engineer Device Identifier Shelf Expiration Date Model / [...] Body N/A Radiographic Elva ging Historical Provider IMLeah DXA PROCEDURES Final Result from Last 3 Months or Most Recently Relevant to Health Maintenance [place] [address] [facility] MEDICARE ADVANTAGE [facility] Address: [facility] [address] [place] [address] [place] [address] [facility] MDCR HMO REF [facility] Address: [address] [address] [place] [address] [facility] MEDICARE ADVANTAGE [facility] Address: [facility] [address] [place] [address] Care Teams Physician Obstetrician Relationship Specialty Start Date End Date Jadon Mccallum MD [address] [place] [address] PCP - General Family Practice 10/28/23 Teresa Nelson NP [address] [place] [address] Nurse Practitioner Medical Oncology 10/02/22 Jadon Mccallum MD [address] [place] [address] Referring Physician Family Practice 06/24/23 Rhea Boone NP [address] [facility] [address] [place], [place] [address] Nurse Practitioner 06/24/23 Rosa Pantoja MD [address] [place] [address] Radiation Oncologist Radiation Oncology 05/04/24
--- OUTSIDE RECORDS SUMMARY | 2025-04-07 11:36 | XMS_ITS | Encounter Summary ---
Author Organization [facility] Address [address] [place] [address] Care Team Providers Care Hardwood Floor Refinisher Name Role Phone Trace Terry MD Primary Care Provider [phone] Encounter Details Date Type Department Care Team (Late st Contact Info) Description 08/18/2018 Lab Requisition [facility] Care Pathology Lab [address] [place] [address] Social History Tobacco Use Types Packs/Day Years Used Date Smoking Tobacco: Never Alcohol Use Standard Drinks/Week Comments No 0 (1 standard drink = 0.6 oz pur e alcohol) Comments Unknown Sex and Gender Information Value Date Recorded Sex Assigned at Not on file Legal Sex Female 7:16 PM RICE FARMWORKER Gender Identity Not on file Sexual Orientation Not on file documented as of this encounter Plan of Treatment Not on file documented as of this encounter Procedures Procedure Name Priority Date/Time Associated Diagnosis Comments PATHOLOGY TISSUE Routine 08/13/2018 9:35 AM RICE FARMWORKER documented in this encounter Results * PATHOLOGY TISSUE (08/13/2018 9:35 AM RICE FARMWORKER) Case Report Surgical Pathology Report Case: [id number] Authorizing Provider: Collected: 08/13/2018 09:35 AM Pathologist: Ella Heard MD Received: 08/18/2018 09:35 AM Specimen: Breast Biopsy, [id number] 08/19/2018 9:48 AM RICE FARMWORKER [facility] Final Diagnosis Breast, left, 1:00, needle core biopsy (OSC [id number], 08/13/18): - 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 - See description. 08/19/2018 9:48 AM RICE FARMWORKER [facility] at 0948 RICE FARMWORKER Microscopic Description and Comment Review of the [...] ductal carcinoma, grade 3. Please see the [facility] pathology report for additional [...] are performed on the block in the [facility] Department of Pathology, with appropriately reactive controls. [...] findings is required. KR/NW 08/19/2018 9:48 AM [facility] PATHOLOGY LAB Clinical History 08/19/2018 9:48 AM [facility] PATH[facility] Materials Received Received are 15 slides and 1 block labeled as [id number] along with the outside pathology report. The materials originate from [facility], [address] [place], [place] [address]. All materials are returned to the referring institution, along with a copy of our final report. 08/19/2018 9:48 AM [facility] PATH[facility] Disclaimer The performance characteristics of all immunohistochemical and indirect immunofluorescence stains (if any) cited in this report were determined by the Histopathology Laboratory of [facility]. Some of these tests were developed [...] the attending (teaching) pathologist. 08/19/2018 9:48 AM [facility] PATH[facility] Embedded Images 08/19/2018 9:48 AM [facility] Pathology/Cytolo gy BIOPSY OF BREAST / Unknown 08/13/2018 9:35 AM RICE FARMWORKER 08/18/2018 9:35 AM RICE FARMWORKER us LAB - PATHOLOGY/CYTOLOGY ORDERAB LES Final Result [facility] PATHOLOGY LAB [address] [phone] documented in this encounter Visit Diagnoses Not on filedocumented in this encounter Care Teams Hardwood Floor Refinisher Relationship Specialty Start Date End Date Trace Terry MD [address] [place] [address] PCP - General 06/23/08 documented as of this encounter
--- OUTSIDE RECORDS SUMMARY | 2025-04-07 11:36 | XMS_ITS | Clinical Summary ---
Author Organization [facility] [employer] Address [address] [place] [address] Care Team Providers Care Waitstaff Captain Name Role Phone Trace Terry MD Primary Care Provider [phone] Source Comments [facility],non-owned Affiliates and Associated Physician Practices is amultiple site organization consisting of ambulatory clinics and hospital sitesin [place], [place], [place] and [place]. This disclosure is being madepursuant to the Care Everywhere program and may not contain all information available regarding this patient. Last updated 18.[facility] [employer] Allergies Active Allergy Reactions Criticality Noted Date [...] on file Legal Sex Female 7:16 PM FROG OR OYSTER FARMWORKER Gender Identity Not on file Sexual [...] MEDICARE AWV CALENDAR YEAR 2024 INFLUENZA VACCINE (#1) 2025 , 05/31/2019, 07/05/2018, Additional history exists HEPATITIS B [...] patient's age to complete this topic Insurance [facility] MANAGED MEDICARE ADV SELF PAY NO INSURANCE Member Subscriber Plan / Payer (Ef fective for All Dates) Name:Cande Duong Member ID:Not on file Relation to Subscriber:Not on file Name:CANDE DUONG Subscriber ID:Not on file (Home) Address: [facility] [address] [address] Payer ID:Not on file Group ID:Not on file Type:Self Pay Address: [facility] MANAGED MEDICARE ADV Care Teams Waitstaff Captain Relationship Specialty Start Date End Date Trace Terry MD [address] [place] [phone] PCP - General 06/23/08
--- OUTSIDE RECORDS SUMMARY | 2025-04-07 11:36 | XMS_ITS | Encounter Summary ---
Author Organization [employer] Address [address] [place] [address] Care Team Providers Care Media Librarian Name Role Phone Trace Terry MD Primary Care Provider + Encounter Details Date Type Department Care Team (Latest Contact Info) Description 12/10/2005 Outpatient Historical [facility] Rohan Sharif MD [address] [address] Unspecified Perforation of Tympanic Membrane (Primary Dx) Social History Tobacco Use Types Packs/Day Years Used Date Smoking Tobacco: Never Assessed Comments Unknown Sex and Gender Information Value Date Recorded Sex Assigned at Not on file Legal Sex Female 5:25 AM FRONT DESK SPECIALIST Gender Identity Not on file Sexual Orientation Not on file documented as of this encounter Plan of Treatment Not on file documented as of this encounter Procedures Procedure Name Priority Date/Time Associated Diagnosis Comments HEMOGLOBIN AND HEMATOCRIT Routine 12/04/2005 2:22 PM FRONT DESK SPECIALIST BASIC METABOLIC PANEL Routine 12/04/2005 2:22 PM FRONT DESK SPECIALIST documented in this encounter Results * HEMOGLOBIN AND HEMATOCRIT (12/04/2005 2:22 PM FRONT DESK SPECIALIST) HEMOGLOBIN 12.8 11.8 - 14.8 g/dL INTERFACE SYSTEM HEMATOCRIT 38.0 35.5 - 44.0 % INTERFACE SYSTEM 12/04/2005 2:22 PM FRONT DESK SPECIALIST Rohan Sharif MD HEMATOLOGY ORDERABLES Final Result INTERFACE SYSTEM Refer to clinic/hospital department * (ABNORMAL) BASIC METABOLIC PANEL (12/04/2005 2:22 PM FRONT DESK SPECIALIST) GLUCOSE 93 65 - 109 mg/dL INTERFACE [...] 30 mmol/L INTERFACE SYSTEM 12/04/2005 2:22 PM FRONT DESK SPECIALIST us Rohan Sharif MD CHEMISTRY ORDERABLES Final R esult INTERFACE SYSTEM Refer to clinic/hospital department documented in this encounter Visit Diagnoses Diagnosis Perforation of tympanic membrane, unspecified- Primary documented in this encounter Care Teams Media Librarian Relationship Specialty Start Date End Date Trace Terry MD [address] [place] [address] PCP - General 10/16/06 documented as of this encounter
--- OUTSIDE RECORDS SUMMARY | 2025-04-07 11:36 | XMS_ITS | Encounter Summary ---
Author Organization [employer] Address [address] [place] [address] Care Team Providers Care Bee Worker Name Role Phone Trace Terry MD Primary Care Provider + Encounter Details Date Type Department Care Team (Late st Contact Info) Description 12/04/2005 Outpatient Historical [facility] [address] [place] [address] Frankie Leal MD NO ADDRESS ON FILE Social History Tobacco Use Types Packs/Day Years Used Date Smoking Tobacco: Never Assessed Comments Unknown Sex and Gender Information Value Date Recorded Sex Assigned at Not on file Legal Sex Female 5:25 AM SKIN FORMER Gender Identity Not on file Sexual Orientation Not on file documented as of this encounter Plan of Treatment Not on file documented as of this encounter Visit Diagnoses Not on filedocumented in this encounter Care Teams Bee Worker Relationship Specialty Start Date End Date Trace Terry MD [address] [place] [address] PCP - General 10/16/06 documented as of this encounter
--- OUTSIDE RECORDS SUMMARY | 2025-04-07 11:36 | XMS_ITS | Encounter Summary ---
Author Organization [facility] Address [address] [place] [address] Phone Care Team Providers Care Tire Mechanic Name Role Phone Eulogio Caicedo MD Unavailable [phone] Román Cabrales DO Primary Care Provider [phone] Lake Zuniga MD PhD Unavailable [phone] Magdy Ortiz MD Unavailable [phone] Rosa Pantoja MD Unavailable [phone] Dieudonne Mora MD Unavailable [phone] Teresa Nelson ORACLE BRM DEVELOPER Unavailable + [phone] Nino Biggs MD Primary Care Provider [phone] Jadon Mccallum MD Unavailable [phone] Rhea Boone ORACLE BRM DEVELOPER Unavailable [phone] Jadon Mccallum MD Primary Care Provider [phone] Rosa Pantoja MD Unavailable [phone] Encounter Details Date Type Department Care Team [...] on file Legal Sex Female 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 Gender Identity Not on file Sexual Orientation [...] on filedocumented in this encounter Care Teams Tire Mechanic Relationship Specialty Start Date End Date Román Cabrales DO PCP - General Internal Medicine 01/06/19 10/21/22 Nino Biggs MD [address] [phone] PCP - General Internal Medicine 10/22/22 10/27/23 Jadon Mccallum MD [address] [place] [address] [id number] PCP - General Family Practice 10/28/23 Eulogio Caicedo MD Medical Oncologist/Hematologis t Hematology and Oncology 09/30/18 03/06/21 Lake Zuniga MD PhD Consulting Physician Medical Oncology 03/07/21 1 Magdy Ortiz MD Medical Oncologist Hematology and Oncology 08/08/21 10/01/22 Rosa Pantoaj MD Radiation Oncologist Radiation Oncology 09/13/21 Dieudonne Mora MD Medical Oncologist/Hematologis t Medical Oncology 03/18/22 10/01/22 Teresa Nelson NP [address] [place] [address] 180 [facility] [place], [place] [address] Nurse Practitioner Medical Oncology 10/02/22 Jadon Mccallum MD [address] [place] [address] 180 [facility] [place], [place] [address] Referring Physician Family Practice 06/24/23 Rhea Boone NP [address] [facility] 1 [facility] 1 [place], [place] [id number] Nurse Practitioner 06/24/23 Rosa Pantoja MD [address] [place] [address] Radiation Oncologist Radiation Oncology 05/04/24 documented as of this encounter
[2025-04-07 12:08] LABS: Hematocrit 40.4 % (37.0-47.0); Hemoglobin 13.0 g/dL (12.0-15.0); Immature Granulocyte Percent A 0.2 % (0-0.5); Lymphocytes Absolute Auto 1.25 K/mm3 (0.9-3.2); Mean Corpuscular HGB Conc 32.2 g/dl (32-36); Mean Corpuscular Hemoglobin 29.5 pg (26-34); Mean Corpuscular Volume 91.8 fl (80-100); Nucleated Red Blood Cells Absolute Auto 0.000 K/mm3 (0.0-0.012); Nucleated Red Blood Cells Perc 0.0 % (0.0-0.2); Platelet Count Result 179 k/mm3 (150-375); Red Blood Count 4.40 M/mm3 (4.2-5.4); White Blood Count 5.0 K/mm3 (4.5-10.0)
[2025-04-07 12:38] LABS: Alanine Aminotransferase 15 U/L (6-35); Albumin Level 4.1 g/dL (3.5-5.1); Alkaline Phosphatase 61 U/L (38-126); Anion Gap 3 mmol/L (4-12); Aspartate Amino Transferase 30 U/L (14-36); Bilirubin,Total 0.7 mg/dL (0.2-1.3); Blood Urea Nitrogen 20 mg/dL (7-17); Calcium 9.7 mg/dL (8.4-10.2); Carbon Dioxide 29 mmol/L (22-30); Chloride 100 mmol/L (98-107); Cholesterol 249 mg/dL (0-200); Estimated Glomerular Filt Rate > 60; Glucose 94 mg/dL (65-110); HDL Direct 67 mg/dL; Potassium 4.0 mmol/L (3.4-5.0); Sodium 132 mmol/L (137-145); Total Protein 6.5 g/dL (6.3-8.2); Triglycerides 111 mg/dL (<150)
[2025-04-07 12:50] LABS: Hemoglobin A1C 4.9 % (<5.7)
== END 2025-04-07 11:32 | disposition home or self-care (01) ==
PROVIDERS: PCP Nurse Practitioner Family; Visit Provider Nurse Practitioner Family
DX: R73.01 Impaired fasting glucose (principal); E78.2 Mixed hyperlipidemia; M85.80 Other specified disorders of bone density and structure, unspecified site; E55.9 Vitamin D deficiency, unspecified; C82.80 Other types of follicular lymphoma, unspecified site; C50.912 Malignant neoplasm of unspecified site of left female breast
CPT/HCPCS: 36415; 80053; 80061; 82306; 83036; 85025

== ENCOUNTER 2025-06-10 09:04 | Outpatient (CLI) | payer MEDICARE, SELFPAY ==
--- OUTSIDE RECORDS SUMMARY | 2009-09-20 03:30 | XMS_ITS | Continuity of Care Document ---
Author Organization [facility] Address [address] [place] [address] [place] [address] Phone Care Team Providers Care Tap Out Operator Name Role Phone Jonathan Fitzpatrick Unavailable Unavailable Procedures Procedure Date Office/outpatient Visit, Est Office/outpatient Visit, Est Office/outpatient Visit, Est Eye Exam Established Pt Eye Exam & Treatment Advance Directives Directive Yes / No Effective Date File Name No Information Encounters Encounter Description Practice Location Reason(s) For Visit Diagnoses Date Provider Providers Copied on Encounter Office/outpat ient Visit, [facility], [address] [place] [address] [address], [place], [place], [id number], [place] tel:[phone] [facility] No Information 3-201 0 Nanette Castillo. [address] [facility] , [address], [place], [place], [facility], . tel:[phone] Office/outpat ient Visit, [facility], [address] [place] [address] [address], [place], [place], [id number], [place] tel:[phone] [facility] No Information 2-200 9 Nanette Castillo. [address] [facility] , [address], [place], [place], [facility], . tel:[phone] Office/outpat ient Visit, [facility], [address] [place] [address] [address], [place], [place], [id number], [place] tel:[phone] [facility] [place] No Information b-2 2-200 8 Jannette Caceres. [address] [facility] [place] [address], [place], [place], [facility], . tel:[phone] [facility], [address], [place], [place], [id number], tel:[phone] [facility] No Information Oct-0 4-200 8 Nanette Castillo. [address] [facility] , [address], [place], [place], [facility], [place]. tel:[phone] [facility], [address], [place], [place], [id number], tel:[phone] [facility] No Information Sep-0 9-200 8 Nanette Edwilliam. [facility] , [address], [place], [place], [facility], . tel:[phone] Family History Family Member Type Diagnosis Age At Onset No Information Payers Payer name Insurance type Covered green party ID Authoriza tion(s) No Information Social [...]
--- OUTSIDE RECORDS SUMMARY | 2025-06-10 09:16 | XMS_ITS | Encounter Summary ---
Author Organization [facility] Address [address] [place] [address] Phone Care Team Providers Care Preschool Teacher Aide Name Role Phone Eulogio Caicedo MD Unavailable [phone] Román Cabrales DO Primary Care Provider [phone] Lake Zuniga MD PhD Unavailable [phone] Magdy Ortiz MD Unavailable [phone] Rosa Pantoja MD Unavailable [phone] Dieudonne Mora MD Unavailable [phone] Teresa Nelson BOTTLER Unavailable [phone] Nino Biggs MD Primary Care Provider [phone] Jadon Mccallum MD Unavailable [phone] Rhea Boone BOTTLER Unavailable [phone] Jadon Mccallum MD Primary Care Provider [phone] Rosa Pantoja MD Unavailable [phone] Encounter Details Date Type Department Care Team [...] on file Legal Sex Female 12:19 PM GREENSKEEPER Gender Identity Not on file Sexual Orientation [...] on filedocumented in this encounter Care Teams Preschool Teacher Aide Relationship Specialty Start Date End Date Román Cabrales DO PCP - General Internal Medicine 01/06/19 10/21/22 Nino Biggs MD [facility] [address] [phone] PCP - General Internal Medicine 10/22/22 10/27/23 Jadon Mccallum MD [address] [facility] [address] [id number] PCP - General Family Practice 10/28/23 Eulogio Caicedo MD Medical Oncologist/Hematologis t Hematology and Oncology 09/30/18 03/06/21 Lake Zuniga MD PhD Consulting Physician Medical Oncology 03/07/21 1 Magdy Ortiz MD Medical Oncologist Hematology and Oncology 08/08/21 10/01/22 Rosa Pantoja MD Radiation Oncologist Radiation Oncology 09/13/21 Dieudonne Mora MD Medical Oncologist/Hematologis t Medical Oncology 03/18/22 10/01/22 Teresa Nelson NP [address] [place] [address] 180 [facility] 2 [place], [place] [address] Nurse Practitioner Medical Oncology 10/02/22 Jadon Mccallum MD [address] [place] [address] 180 [facility] 2 [place], [place] [address] Referring Physician Family Practice 06/24/23 Rhea Boone NP [address] [facility] 1 [facility] 1 [place], [place] [phone] Nurse Practitioner 06/24/23 Rosa Pantoja MD [address] [place] [address] Radiation Oncologist Radiation Oncology 05/04/24 documented as of this encounter
--- OUTSIDE RECORDS SUMMARY | 2025-06-10 09:16 | XMS_ITS | Encounter Summary ---
Author Organization [facility] Address [address] [place] [address] Care Team Providers Care Department Editor Name Role Phone Trace Terry MD Primary Care Provider + Encounter Details Date Type Department Care Team (Latest Contact Info) Description 05/26/2008 Outpatient Historical [facility] Leyla Sharif MD [address] [facility] [address] [place] [address] Central Perforation of Tympanic Membrane Social History Tobacco Use Types Packs/Day Years Used Date Smoking Tobacco: Never Assessed Comments Unknown Sex and Gender Information Value Date Recorded Sex Assigned at Not on file Legal Sex Female 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 [place], [place] [address] Patient: CANDE DUONG : 1940 Procedure Date: 06/14/2008 Accession Date: 06/14/2008 Case No: [id number] Ordering Dr: LEYLA SHARIF Case types AW, BW, FW, NW and SH are performed by [facility] [place] [place], [place] SURGICAL PATHOLOGY & NON-GYNECOLOGIC CYTOPATHOLOGY REPORT [...] 01:29 pm Microscopic: The slide is labeled [id number] and Cande Duong. The specimen labeled tympanic [...] CDT) CHLORIDE 103 96 - 108 mmol/L [facility] GLUCOSE 84 65 - 99 mg/dL [facility] SODIUM 140 135 - 145 mmol/L [facility] GFR >60 >=60 mL/min/1.7 sq meter [facility] Comment: Modification of Diet in Renal Disease (MDRD) study formula. Estimated GFR rate interpretative information for both Americans and non- Americans is available on the [facility] Intranet at: [email or web address] Select: Lab Policies and Procedures Select: Reference Ranges - GFR CALCIUM 9.7 8.6 - 10.2 mg/dL [facility] GFR, >60 >=60 mL/min/1.7 sq meter [facility] CO2 28 22 - 30 mmol/L [facility] CREATININE 0.72 0.51 - 0.95 mg/dL [facility] POTASSIUM 3.7 3.5 - 4.9 mmol/L [facility] BUN 18 6 - 20 mg/dL [facility] Blood specimen (specimen) 06/08/2008 9:50 AM CDT 06/08/2008 11:05 AM CDT Leyla Sharif MD CHEMISTRY ORDERABLES Edited Performing Organization Address [facility] de Phone Number INTERFACE SYSTEM Refer to clinic/hospital department [facility] CLIA# [id number] [address] [place] [address] * HEMOGLOBIN AND HEMATOCRIT (06/08/2008 9:50 AM CDT) HEMATOCRIT 38.1 35.5 - 44.0 % [facility] HEMOGLOBIN 13.1 11.8 - 14.8 g/dL [facility] Blood specimen (specimen) 06/08/2008 9:50 AM CDT 06/08/2008 11:05 AM CDT Leyla Sharif MD HEMATOLOGY ORDERABLES Final Result Performing Organization Address [facility] Co de Phone Number INTERFACE SYSTEM Refer to clinic/hospital department [facility] CLIA# [id number] [address] [place] [address] documented in this encounter Visit Diagnoses Diagnosis Central perforation of tympanic membrane documented in this encounter Care Teams Department Editor Relationship Specialty Start Date End Date Trace Terry MD [address] [place] [address] PCP - General 10/16/06 documented as of this encounter
--- OUTSIDE RECORDS SUMMARY | 2025-06-10 09:16 | XMS_ITS ---
Author Organization [facility] Address [address] [place] [address] Phone Care Team Providers Care Implementation Technician Name Role Phone Teresa Nelson Rosalie ELECTRICITY TRADING ANALYST Unavailable [phone] Jadon Mccallum MD Unavailable Rhea Boone ELECTRICITY TRADING ANALYST Unavailable [phone] Jadon Mccallum MD Primary Care Provider [phone] Rosa Pantoja MD Unavailable [phone] Active Problems Problem Noted Date Diagnosed Date Personal history of radiation therapy 09/13/2021 Encounter for central line care 12/15/2018 Encounter for monitoring cardiotoxic drug therap y 10/27/2018 Malignant neoplasm of overla pping sites of left breast in female, estrogen receptor positive 10/05/2018 Cancer Staging:Clinical stage from 10/26/2018:Stage IB(cT2, cN0, cM0, G2, ER: Positive, AL: Positive, HER2: Positive) - Signed by Eulogio Caicedo MD on 10/26/2018 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/30/2018 Hot flashes, menopausal 08/28/2015 Lymphoma, non-Hodgkin's 07/25/2015 Current Treatment and Therapy Plans No current plan information found. Past Treatment and Therapy Plans Line Care Plan Name Start Date Discontinue Date Treatment Medications Discontinue Reason Plan Provider IV MAINTENANCE THERAPY PLAN 01/06/2019 08/29/2020 No medications scheduled. Therapy Complete uElogio Caicedo MD Oncology Chemotherapy Treatment Plan Name [...]
--- OUTSIDE RECORDS SUMMARY | 2025-06-10 09:16 | XMS_ITS | Encounter Summary ---
Author Organization [facility] Address [address] [facility] [address] Care Team Providers Care Swing Manager Name Role Phone Trace Terry MD Primary Care Provider [phone] Encounter Details Date Type Department Care Team (Late st Contact Info) Description 04/26/2019 Lab Requisition [facility] Care Pathology Lab [address] [place] [address] Neftaly Silvestre MD [address] [place] [address] Social History Tobacco Use Types Packs/Day Years Used Date Smoking Tobacco: Never Alcohol Use Standard Drinks/Week Comments No 0 (1 standard drink = 0.6 oz pur e alcohol) Comments Unknown Sex and Gender Information Value Date Recorded Sex Assigned at Not on file Legal Sex Female 7:16 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 Gender Identity Not on file Sexual Orientation Not on file documented as of this encounter Plan of Treatment Not on file documented as of this encounter Procedures Procedure Name Priority Date/Time Associated Diagnosis Comments PATHOLOGY TISSUE Routine 04/22/2019 10:0 0 AM CDT documented in this encounter Results * PATHOLOGY TISSUE (04/22/2019 10:00 AM CDT) Case Report Surgical Pathology Report Case: [id number] Authorizing Provider: Neftaly Silvestre MD Collected: 04/22/2019 10:00 AM Ordering Location: [facility] Care Pathology Lab Received: 04/26/2019 01:25 PM Pathologist: Ella Heard MD Specimen: Slide Consultation, [id number] 04/28/2019 11:05 AM CDT [facility] Final Diagnosis Left axillary sentinel lymph nodes #1-4, excision (OSC [id number], 04/22/19): - No evidence of lymphoma or metastatic carcinoma. - See description. Left breast, lumpectomy with wire localization (OSC [id number], 04/22/19): - Follicular lymphoma, residual/recurrent. - No evidence of residual carcinoma. - See description. 04/28/2019 11:05 AM [facility] at 1105 CDT Microscopic Description and Comment The four sentinel lymph nodes show a mix of primary follicles with a few small germinal centers and sinus histiocytosis. No extrinsic cell populations are identified. Immunohistochemistry is performed in the [facility] Department of Pathology on block A1 [...] follicular pattern. Immunohistochemistry is performed in the [facility] Department of Pathology on block E7 to assess these lymphocytes in the breast tissue given the patient's history of lymphoma. There is a mix of CD20 and [id number] B-cells with fewer numbers of CD3-positive T-cells. [...] correlation is required. KR 04/28/2019 11:05 AM [facility] Clinical History 78 year old woman with a history of follicular lymphoma and breast carcinoma. 04/28/2019 11:05 AM [facility] Materials Received Received are 31 slides and 8 blocks labeled as [id number] along with the outside pathology report. The materials originate from [facility], [address] [place] [address], [place] [address]. All materials are returned to the referring institution, along with a copy of our final report. 04/28/2019 11:05 AM T [facility] PATH[facility] LAB Disclaimer The performance characteristics of all immunohistochemical and indirect immunofluorescence stains (if any) cited in this report were determined by the Histopathology Laboratory of [facility]. Some of these tests were developed by [...] attending (teaching) pathologist. 04/28/2019 11:05 AM T [facility] PATH[facility] LAB Embedded Images 04/28/2019 11:05 AM T [facility] PATH[facility] LAB Pathology/Cytolo gy SURGICAL PATHOLOGY CONSULTATION AND REPORT ON REFERRED SLIDES PREPARED ELSEWHERE / Unknown 04/22/2019 10:00 AM CDT 04/26/2019 1:25 PM CDT Neftaly Silvestre MD LAB - PATHOLOGY/CYTOLOGY ORDER ION Final Result Performing Organization Address City/State/[facility] Co de Phone Number [facility] LAB [address] [phone] documented in this encounter Visit Diagnoses Not on filedocumented in this encounter Care Teams Swing Manager Relationship Specialty Start Date End Date Trace Terry MD [address] [place] [address] PCP - General 06/23/08 documented as of this encounter
--- OUTSIDE RECORDS SUMMARY | 2025-06-10 09:16 | XMS_ITS | Encounter Summary ---
Author Organization [facility] Address [address] [facility] [place] [address] Care Team Providers Care Ballet Teacher Name Role Phone Trace Terry MD Primary Care Provider [phone] Encounter Details Date Type Department Care Team (Late st Contact Info) Description 08/18/2018 Lab Requisition [facility] Care Pathology Lab [address] [place] [address] Social History Tobacco Use Types Packs/Day Years Used Date Smoking Tobacco: Never Alcohol Use Standard Drinks/Week Comments No 0 (1 standard drink = 0.6 oz pur e alcohol) Comments Unknown Sex and Gender Information Value Date Recorded Sex Assigned at Not on file Legal Sex Female 7:16 PM WAFER SLICER Gender Identity Not on file Sexual Orientation Not on file documented as of this encounter Plan of Treatment Not on file documented as of this encounter Procedures Procedure Name Priority Date/Time Associated Diagnosis Comments PATHOLOGY TISSUE Routine 08/13/2018 9:35 AM WAFER SLICER documented in this encounter Results * PATHOLOGY TISSUE (08/13/2018 9:35 AM WAFER SLICER) Case Report Surgical Pathology Report Case: [id number] Authorizing Provider: Collected: 08/13/2018 09:35 AM Pathologist: Ella Heard MD Received: 08/18/2018 09:35 AM Specimen: Breast Biopsy, [id number] 08/19/2018 9:48 AM WAFER SLICER [facility] PATHOLOGY LAB Final Diagnosis Breast, left, 1:00, needle core biopsy (OSC [id number], 08/13/18): - 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 - See description. 08/19/2018 9:48 AM WAFER SLICER [facility] PATH[facility] at [address]48 WAFER SLICER Microscopic Description and Comment Review of the [...] ductal carcinoma, grade 3. Please see the [facility] pathology report for additional details [...] are performed on the block in the [facility] Department of Pathology, with appropriately reactive controls. [...] findings is required. KR/NW 08/19/2018 9:48 AM [facility] PATHOLOGY LAB Clinical History 08/19/2018 9:48 AM [facility] PATHOLOGY LAB Materials Received Received are 15 slides and 1 block labeled as [id number] along with the outside pathology report. The materials originate from [facility], [address] [place], [place] [id number]. All materials are returned to the referring institution, along with a copy of our final report. 08/19/2018 9:48 AM [facility] PATHOLOGY LAB Disclaimer The performance characteristics of all immunohistochemical and indirect immunofluorescence stains (if any) cited in this report were determined by the Histopathology Laboratory of [facility]. Some of these tests were developed [...] the attending (teaching) pathologist. 08/19/2018 9:48 AM [facility] PATHOLOGY LAB Embedded Images 08/19/2018 9:48 AM [facility] PATHOLOGY LAB Pathology/Cytolo gy BIOPSY OF BREAST / Unknown 08/13/2018 9:35 AM WAFER SLICER 08/18/2018 9:35 AM WAFER SLICER us LAB - PATHOLOGY/CYTOLOGY ORDERAB LES Final Result [facility] PATHOLOGY LAB [address] [phone] documented in this encounter Visit Diagnoses Not on filedocumented in this encounter Care Teams Ballet Teacher Relationship Specialty Start Date End Date Trace Terry MD [address] [place] [phone] PCP - General 06/23/08 documented as of this encounter
--- OUTSIDE RECORDS SUMMARY | 2025-06-10 09:16 | XMS_ITS | Encounter Summary ---
Author Organization [employer] Address [address] [place] [address] Care Team Providers Care Sample Box Maker Name Role Phone Trace Terry MD Primary Care Provider + Encounter Details Date Type Department Care Team (Late st Contact Info) Description 12/04/2005 Outpatient Historical [facility] Support Serv. (Adt Cardiology[facility]) [address] 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
--- OUTSIDE RECORDS SUMMARY | 2025-06-10 09:16 | XMS_ITS | Clinical Summary ---
Author Organization [facility] Address [address] [facility] Attn: Epic Prelude ADT JOSE CADE [address] Care Team Providers Care Rotary Surface Grinder Name Role Phone Trace Terry MD Primary Care Provider + Social History Tobacco Use Types Packs/Day Years Used Date Smoking Tobacco: Never Assessed Comments Unknown Sex and Gender Information Value Date Recorded Sex Assigned at Not on file Legal Sex Female 5:25 AM BIZTALK ADMINISTRATOR Gender Identity Not on file Sexual Orientation Not on file Plan of Treatment Health Maintenance Due Date Last Done Comments DTAP/TDAP/TD VACCINES (1 - Tdap) 1957 PNEUMOCOCCAL VACCINE 50+ YEARS (1 of 1 - PCV) 05/23/19 88 ZOSTER VACCINE (1 of 2) 1988 OSTEOPOROSIS SCREENING 2003 RSV VACCINE (60+ or ) (1 - 1-dose 75+ series) 2013 INFLUENZA VACCINE (#1) 2025 Care Teams Rotary Surface Grinder Relationship Specialty Start Date End Date Trace Terry MD [address] [place] [address] PCP - General 10/16/06
--- OUTSIDE RECORDS SUMMARY | 2025-06-10 09:16 | XMS_ITS | Clinical Summary ---
Author Organization [facility] Address [address] [place] [address] Phone Care Team Providers Care Oil And Gas Field Technician Name Role Phone Teresa Nelson Rosalie SHIFT SUPERVISOR Unavailable [phone] Jadon Mccallum MD Unavailable Rhea Boone SHIFT SUPERVISOR Unavailable [phone] Jadon Mccallum MD Primary Care Provider [phone] Rosa Pantoja MD Unavailable [phone] Allergies Active Allergy Reactions Criticality Noted Date Comments Penicillins Rash Medium 12/03/2010 Medications calcium-vitamin D3-vitamin K 500 mg-1,000 unit-40 mcg tablet,chewable 10/01/2017Calcium + d, po solid 500mg-1000 Tablet, chewablePOdailyCurrent Medication 2017 Active latanoprost (XALATAN) 0.005 % ophthalmic solution 2019 Active Alphagan P 0.1 % drops 2019 Active alendronate (FOSAMAX) 70 mg tablet TAKE 1 TABLET BY MOUTH ONCE WEEKLY 2021 Active cholecalciferol (VITAMIN D-3) 25 mcg (1,000 unit) tablet Take 1 tablet (1,000 Units total) by mouth daily Active fluticasone propionate (FLONASE) 50 mcg/actuation nasal spray SPRAY 2 SPRAYS IN EACH NOSTRIL ONCE DAILY 2023 Active vitamin E (AQUASOL E) 400 unit capsule Take 1 capsule (400 Units total) by mouth 05/17 Discontinued anastrozole (ARIMIDEX) 1 mg tabletIndicatio ns:Early Breast Cancer HR Positive and Postmenopausal Take 1 tablet (1 mg total) by mouth daily 90 tablet 1 05/17 Discontinued( Therapy completed) Active Problems Problem Noted Date Diagnosed Date Personal history of radiation therapy 09/13/2021 Encounter for central line care 12/15/2018 Encounter for monitoring cardiotoxic drug therap y 10/27/2018 Malignant neoplasm of overla pping sites of left breast in female, estrogen receptor positive 10/05/2018 Cancer Staging:Clinical stage from 10/26/2018:Stage IB(cT2, cN0, cM0, G2, ER: Positive, DE: Positive, HER2: Positive) - Signed by Eulogio Caicedo MD on 10/26/2018 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/30/2018 Hot flashes, menopausal 08/28/2015 Lymphoma, non-Hodgkin's 07/25/2015 Encounters Date Type Department Care Team Description 05/19/2025 Telephone [facility] Oncology [address] [place] [phone] Jeri Morel RN 05/17/2025 11:30 AM CDT Office Visit [facility] Oncology [address] [place] [phone] Teresa Nelson NP Malignant neoplasm of upper-outer quadrant of left breast in female, estrogen receptor positive (HCC) (Primary Dx); Malignant neoplasm of overlapping sites of left breast in female, estrogen receptor positive (HCC); Follicular lymphoma grade I, unspecified body region (HCC); longterm (current) use of aromatase inhibitors; Localized edema 05/17/2025 Telephone [facility] Oncology [address] [place] [phone] Rula Osullivan CMA from Last 3 Months Immunizations Immunization Administration [...] = 0.6 oz pur e alcohol) rare AUDIT-C Answer Date Recorded Q1: How often do you have a drink containing alcohol? Never 05/17/2025 Q2: How many drinks containi ng alcohol do you have on a typical day when you are drinking? Patient does not drink Q3: How often do you have si x or more drinks on one occasion? Never 05/17/2025 Comments No Sex and Gender Information Value Date Recorded Sex Assigned at Not on file Legal Sex Female 12:19 PM SECURITY OPERATIONS ENGINEER Gender Identity Not on file Sexual Orientation Not on file Obstetrics History Last Filed Vital Signs Vital Sign Reading Time Taken Comments Blood Pressure 168/93 05/17/2025 11:01 AM CDT Pulse 82 05/17/2025 11:01 AM CDT Temperature 36.8 C (98.2 F) 05/17/2025 11:01 AM CDT Respiratory Rate 18 05/17/2025 11:01 AM CDT Oxygen Saturation 95% 05/17/2025 11:01 AM CDT Inhaled Oxygen Concentration - - Weight 65.4 kg (144 lb 2.9 oz) 05/17/2025 11:01 AM CDT Height 162.6 cm (5' 4) 11/02/2024 1:10 PM SECURITY OPERATIONS ENGINEER Body Mass Index 24.75 11/02/2024 1:10 PM SECURITY OPERATIONS ENGINEER Plan of Treatment Health Maintenance Due Date Last Done Comments Depression Screening 1940 Fall Risk Assessment 1940 DTaP/Tdap/Td Vaccine (1 - Tdap) 1949 Hepatitis B Screening 1958 Well Visit 65+ 2003 Pneumococcal vaccine 65+ (2 of 2 - PCV) 07/18/2014 07/18/2013 Covid-19 Vaccine (8 - Modern a risk season) 2025 05/20/2024, 06/21/2023, 05/21/2022, Additional history exists Influenza Vaccine (#1) 2025 , 05/21/2023, 05/16/2022, Additional history exists Osteoporosis Screening-Bone Density Scan 03/24/2026 03/24/2024 Zoster Vaccine Completed 05/12/2018, 11/2017, 03/10/2018 Medical Devices Implanted Type Area Admissions Manager Rn Device Identifier Shelf Expiration Date Model / [...] N/A Radiographic Elva ging us Historical Provider IMLeah DXA PROCEDURES Final Result from Last 3 Months or Most Recently Relevant to [place] [address] [facility] MEDICARE ADVANTAGE [facility] Address: [address] [address] [place] [address] [facility] MDCR HMO REF [facility] Address: [address] [address] [place] [address] [facility] MEDICARE AD[facility]ANTAGE [facility] Address: [address] [address] Care Teams Oil And Gas Field Technician Relationship Specialty Start Date End Date Jadon Mccallum MD [address] [place] [address] [address] PCP - General Family Practice 10/28/23 Teresa Nelson NP [address] [place] [address] [address] Nurse Practitioner Medical Oncology 10/02/22 Jadon Mccallum MD [address] [facility] [address] [place] [address] Referring Physician Family Practice 06/24/23 Rhea Boone NP [address] [facility] [address] [place] [address] Nurse Practitioner 06/24/23 [place] [address] [place] [address] [address] [place] [address] Radiation Oncologist Radiation Oncology 05/04/24
--- OUTSIDE RECORDS SUMMARY | 2025-06-10 09:16 | XMS_ITS | Encounter Summary ---
Author Organization [facility] Address [address] [place] [address] Care Team Providers Care Automatic Thread Winder Name Role Phone Trace Terry MD Primary Care Provider + Encounter Details Date Type Department Care Team (Latest Contact Info) Description 12/10/2005 Outpatient Historical [facility] Rohan Sharif MD [address] [address] Unspecified Perforation of Tympanic Membrane (Primary Dx) Social History Tobacco Use Types Packs/Day Years Used Date Smoking Tobacco: Never Assessed Comments Unknown Sex and Gender Information Value Date Recorded Sex Assigned at Not on file Legal Sex Female 5:25 AM BEEF LUGGER Gender Identity Not on file Sexual Orientation Not on file documented as of this encounter Plan of Treatment Not on file documented as of this encounter Procedures Procedure Name Priority Date/Time Associated Diagnosis Comments HEMOGLOBIN AND HEMATOCRIT Routine 12/04/2005 2:22 PM BEEF LUGGER BASIC METABOLIC PANEL Routine 12/04/2005 2:22 PM BEEF LUGGER documented in this encounter Results * HEMOGLOBIN AND HEMATOCRIT (12/04/2005 2:22 PM BEEF LUGGER) HEMOGLOBIN 12.8 11.8 - 14.8 g/dL INTERFACE SYSTEM HEMATOCRIT 38.0 35.5 - 44.0 % INTERFACE SYSTEM 12/04/2005 2:22 PM BEEF LUGGER Rohan Sharif MD HEMATOLOGY ORDERABLES Final Result INTERFACE SYSTEM Refer to clinic/hospital department * (ABNORMAL) BASIC METABOLIC PANEL (12/04/2005 2:22 PM BEEF LUGGER) GLUCOSE 93 65 - 109 mg/dL INTERFACE [...] 30 mmol/L INTERFACE SYSTEM 12/04/2005 2:22 PM BEEF LUGGER us Rohan Sharif MD CHEMISTRY ORDERABLES Final R esult INTERFACE SYSTEM Refer to clinic/hospital department documented in this encounter Visit Diagnoses Diagnosis Perforation of tympanic membrane, unspecified- Primary documented in this encounter Care Teams Automatic Thread Winder Relationship Specialty Start Date End Date Trace Terry MD [address] [place] [address] PCP - General 10/16/06 documented as of this encounter
--- OUTSIDE RECORDS SUMMARY | 2025-06-10 09:16 | XMS_ITS | Encounter Summary ---
Author Organization [facility] Address [address] [place] [address] Care Team Providers Care Bead Wire Taper Name Role Phone Trace Terry MD Primary Care Provider + Encounter Details Date Type Department Care Team (Late st Contact Info) Description 10/16/2006 Outpatient Historical [facility] Rohan Sharif MD [address] [address] Unspecified Perforation of Tympanic Membrane (Primary Dx) Social History Tobacco Use Types Packs/Day Years Used Date Smoking Tobacco: Never Assessed Comments Unknown Sex and Gender Information Value Date Recorded Sex Assigned at Not on file Legal Sex Female 5:25 AM DEVULCANIZER CHARGER Gender Identity Not on file Sexual Orientation Not on file documented as of this encounter Plan of Treatment Not on file documented as of this encounter Visit Diagnoses Diagnosis Perforation of tympanic membrane, unspecified- Primary documented in this encounter Care Teams Bead Wire Taper Relationship Specialty Start Date End Date Trace Terry MD [address] [place] [address] PCP - General 10/16/06 documented as of this encounter
--- OUTSIDE RECORDS SUMMARY | 2025-06-10 09:16 | XMS_ITS | Clinical Summary ---
Author Organization [facility] Address [address] [place] [address] Care Team Providers Care Dining Room Captain Name Role Phone Trace Terry MD Primary Care Provider [phone] Source Comments [facility],non-owned Affiliates and Associated Physician Practices is amultiple site organization consisting of ambulatory clinics and hospital sitesin [place], [place], [place] and [place]. This disclosure is being madepursuant to the Care Everywhere program and may not contain all information available regarding this patient. 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 Gender Identity Not on file Sexual Orientation Not on file Plan of Treatment Health Maintenance Due Date Last Done Comments BONE DENSITY TESTING 1940 DTAP/TDAP/TD VACCINES (1 - Tdap) 1957 PNEUMOCOCCAL VACCINE 50+ (1 of 1 - PCV) 1988 ZOSTER VACCINE (1 of 2) 1988 Respiratory Syncytial Virus (RSV) Vaccine Pt: or over 60 yrs (1 - 1-dose 75+ series) 2013 DEPRESSION SCREENING 09/08/2024 MEDICARE AWV CALENDAR YEAR 2024 COVID-19 VACCINE ( season) 2025 07/23/2021, 11/28/2020, 10/19/2020 INFLUENZA VACCINE (#1) 2025 , 05/31/2019, 07/05/2018, [...] patient's age to complete this topic Insurance [facility] MANAGED MEDICARE ADV SELF PAY NO INSURANCE Member Subscriber Plan / Payer (Ef fective for All Dates) Name:Cande Duong Member ID:Not on file Relation to Subscriber:Not on file Name:CANDE DUONG Subscriber ID:Not on file (Home) Address: [facility] [place] [address] Payer ID:Not on file Group ID:Not on file Type:Self Pay Address: [facility] MANAGED MEDICARE ADV Care Teams Dining Room Captain Relationship Specialty Start Date End Date Trace Terry MD [address] [place] [phone] PCP - General 06/23/08
--- NOTE | 2025-06-10 09:50 | ECHO_ITS ---
Patient Info Name: Cande Weaver Age: 85 years : 1940 Gender: Female Ht: 65 in Wt: 144 lbs BSA: 1.74 m2 HR: 62 bpm BP: 138 / 71 mmHg Technical Quality: Good Exam Date: 06/10/2025 10:00 AM Patient Status: O Admit Date: 06/10/2025 Exam Type: CA echo doppler color flow Complete two-dimensional, color flow and Doppler transthoracic echocardiogram is performed. Body Liner: Zhanna Hatfield Attending Provider: Rhea Boone Summary 1. Complete two-dimensional, color flow and Doppler transthoracic echocardiogram is performed. 2. Left ventricular chamber dimension is normal. 3. Left ventricular systolic function is normal, estimated at 60-65. 4. There is mild concentric increased left ventricular wall thickness. 5. The left ventricular diastolic function is grade I diastolic dysfunction. 6. E/e' 11 is mildly elevated. 7. There is mild aortic valve sclerosis. 8. There is mild aortic valve regurgitation. 9. The mitral valve has a mildly calcified annulus. 10. There is mild mitral valve regurgitation. 11. There is mild tricuspid valve regurgitation. 12. No pulmonary hypertension, estimated pulmonary arterial systolic pressure is 30 mmHg. 13. There is mild pulmonic regurgitation. Left Ventricle E/e' 11 is mildly elevated. Left ventricular chamber dimension is normal. Left ventricular systolic function is normal, estimated at 60-65. There is mild concentric increased left ventricular wall thickness. The left ventricular diastolic function is grade I diastolic dysfunction. Right Ventricle Right ventricular chamber dimension is normal. Right ventricular systolic function is normal. Left Atria Left atrial chamber dimension is normal. Right Atria Right atrial chamber dimension is normal. Aortic Valve The aortic valve is trileaflet. There is mild aortic valve sclerosis. There is no aortic valve stenosis. There is mild aortic valve regurgitation. Pulmonic Valve There is mild pulmonic regurgitation. Mitral Valve The mitral valve has a mildly calcified annulus. There is no mitral valve stenosis. There is mild mitral valve regurgitation. Tricuspid Valve There is mild tricuspid valve regurgitation. No pulmonary hypertension, estimated pulmonary arterial systolic pressure is 30 mmHg. Pericardium/Pleural There is no pericardial effusion. Inferior Vena Cava Normal inferior vena cava with >50% collapse upon inspiration consistent with normal right atrial pressure, 5 mmHg. Aorta The aortic root size at the sinus of Valsalva is normal. Left Ventricular Outflow Tract Name Value Normal LVOT 2D LVOT Diameter 2.0 cm LVOT Doppler LVOT Peak Velocity 138 cm/s LVOT Peak Gradient 7 mmHg LVOT Mean Gradient 4 mmHg LVOT VTI 32 cm LVOT VTI/AV VTI Ratio 0.8 LVOT Stroke Volume 102 ml LVOT CO 6.3 l/min LVOT CI 3.6 l/min/m2 Pulmonic Valve Name Value Normal RVOT Doppler RVOT Peak Velocity 54 cm/s RVOT Peak Gradient 1 mmHg PV Doppler PV Peak Velocity 81 cm/s PV Peak Gradient 3 mmHg Mitral Valve Name Value Normal MV Diastolic Function MV E Peak Velocity 68 cm/s MV A Peak Velocity 82 cm/s MV E/A 0.8 MV Decel Time (PW) 226 ms MV Annular TDI MV E/e' (Septal) 11.2 MV E/e' (Lateral) 11.6 MV E/e' (Average) 11.4 Tricuspid Valve Name Value Normal TV Regurgitation Doppler TR Peak Velocity 252 cm/s TR Peak Gradient 23 mmHg Estimated PAP/RSVP RA Pressure 5 mmHg <=5 PA Systolic Pressure 30 mmHg <36 RV Systolic Pressure 30 mmHg <36 Aortic Valve Name Value Normal AV Doppler AV Peak Velocity 177 cm/s AV Peak Gradient 13 mmHg AV Mean Gradient 7 mmHg AV VTI 41 cm AV Area (Cont Eq VTI) 2.5 cm2 >=3.0 AV Area (Cont Eq De) 2.5 cm2 AV DI (De) 0.78 AV Regurgitation 2D LVOT Area 3.2 cm2 Ventricles Name Value Normal LV Dimensions 2D/MM IVS Diastolic Thickness (2D) 1.0 cm 0.6-1.0 LVID Diastole (2D) 4.1 cm 3.8-5.2 LVIW Diastolic Thickness (2D) 1.4 cm 0.6-0.9 LVID Systole (2D) 2.5 cm 2.2-3.5 LVOT Diameter 2.0 cm LV Mass (2D Cubed) 165.91 g 67.00-162.00 LV Mass Index (2D Cubed) 95 g/m2 43-95 Relative Wall Thickness (2D) 0.66 <=0.42 LV Fractional Shortening/Ejection Fraction 2D/MM LV Fractional Shortening (2D) 38 % 27-45 LV EF (2D Teichholz) 69 % LV Diastolic Volume (4C MOD) 65 ml LV EF (4C MOD) 69 % LV Diastolic Volume (2C MOD) 65 ml LV EF (2C MOD) 64 % LV Diastolic Volume (BP MOD) 67 ml 46-106 LV Diastolic Volume Index (BP MOD) 39 ml/m2 29-61 LV Systolic Volume (BP MOD) 23 ml 14-42 LV Systolic Volume Index (BP MOD) 13 ml/m2 8-24 LV EF (BP MOD) 66 % 54-74 LV Diastolic Length (4C) 6.3 cm LV Systolic Length (4C) 5.1 cm LV Stroke Volume (4C MOD) 45 ml Atria Name Value Normal LA Dimensions LA Volume (4C A-L) 19 ml LA Volume (BP A-L) 28 ml RA Dimensions RA Systolic Major [place] Length (4C) 6.0 cm 2.2-2.8 RA Area (4C) 18.5 cm2 <=18.0 Report Signatures
== END 2025-06-10 09:05 | disposition home or self-care (01) ==
PROVIDERS: PCP Nurse Practitioner Family; Visit Provider Nurse Practitioner Family
DX: R60.9 Edema, unspecified (principal); M79.89 Other specified soft tissue disorders; I36.1 Nonrheumatic tricuspid (valve) insufficiency; I35.1 Nonrheumatic aortic (valve) insufficiency; I34.0 Nonrheumatic mitral (valve) insufficiency
CPT/HCPCS: 93306

== ENCOUNTER 2025-06-23 07:10 | Outpatient (CLI) | payer MEDICARE, SELFPAY ==
--- OUTSIDE RECORDS SUMMARY | 2009-09-20 03:30 | XMS_ITS | Continuity of Care Document ---
Author Organization [facility] Address [address] [place] [address] [place] [address] Phone Care Team Providers Care Body Corporate Manager Name Role Phone Jonathan Fitzpatrick Unavailable Unavailable Procedures Procedure Date Office/outpatient Visit, Est Office/outpatient Visit, Est Office/outpatient Visit, Est Eye Exam Established Pt Eye Exam & Treatment Advance Directives Directive Yes / No Effective Date File Name No Information Encounters Encounter Description Practice Location Reason(s) For Visit Diagnoses Date Provider Providers Copied on Encounter Office/outpat ient Visit, [facility], [address] [place] [address] [address], [place], [place], [id number], [place] tel:[phone] [facility] No Information 3-201 0 Nanette Castillo. [address] [facility] , [address], [place], [place], [facility], . tel:[phone] Office/outpat ient Visit, [facility], [address] [place] [address] [address], [place], [place], [id number], [place] tel:[phone] [facility] No Information 2-200 9 Nanette Castillo. [address] [facility] , [address], [place], [place], [facility], . tel:[phone] Office/outpat ient Visit, [facility], [address] [place] [address] [address], [place], [place], [id number], [place] tel:[phone] [facility] [place] No Information b-2 2-200 8 Jannette Caceres. [address] [facility] [place] [address], [place], [place], [facility], . tel:[phone] [facility], [address], [place], [place], [id number], tel:[phone] [facility] No Information Oct-0 4-200 8 Nanette Castillo. [address] [facility] , [address], [place], [place], [facility], [place]. tel:[phone] [facility], [address], [place], [place], [id number], tel:[phone] [facility] No Information Sep-0 9-200 8 Nanette Edwilliam. [facility] , [address], [place], [place], [facility], . tel:[phone] Family History Family Member Type Diagnosis Age At Onset No Information Payers Payer name Insurance type Covered alliance party ID Authoriza tion(s) No Information Social History Type Description Quantity Date Captured Comments Sex Female Smoking Status No Information Chief Complaint And Reason For Visit No Information Reason For Referral Reason For Referral No Information History Of Present Illness Encounter Date Complaint History Of Prese nt Illness No Information Functional Status Date Functional Assessmen t No Information Instructions Date Instruction Additional Infor mation No Information Assessments Type Assessment Date No Information Patient Care Teams Name Effective Dates (start - stop) Status Members No Information
--- NOTE | ~2025-06-23 | CT_ITS ---
Examination: CTA abd aorta runoff Clinical History: M79.89 - Other specified soft tissue disorders Technique: Helical images lung bases to feet IV contrast information not listed in PACS Coronal, sagittal reformats. Multiplanar MIPS CT images acquired with automatic exposure control for dose reduction DLP: 672 mGy-cm Comparison: CT chest abdomen pelvis 10/29/2022 Findings: CTA Findings: Abdominal aorta: No aneurysm or dissection. Mild atherosclerotic disease. Celiac: Patent. SMA: Patent. KEV: Patent. Renal arteries: Patent. Common iliac arteries: Mild disease but patent without stenosis. External iliac arteries: Patent. Hypogastrics: Patent. CFAs: Patent. SFAs: Patent. Minimal multifocal mild stenoses. Profundas: Patent. Popliteal arteries: Mild bilateral stenosis. Runoff: Right leg: Two-vessel runoff. AUDIO VISUAL AIDE occluded. Left leg: Two-vessel runoff. AUDIO VISUAL AIDE occluded. Patent dorsalis pedis bilaterally. Non-CTA findings: Lung bases: Clear. Visualized heart and pericardium: Cardiomegaly. Liver: Unremarkable. Gallbladder: Stones. Spleen: Unremarkable. 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 Minimal ductal dilatation. Adrenal glands: Unremarkable. Kidneys: Right kidney- No renal stones. No hydronephrosis. Left kidney- No renal stones. No hydronephrosis. Distal esophagus/stomach: Unremarkable. Small bowel loops: Normal caliber and wall thickness. Colon: Diverticula. Normal caliber and wall thickness. Normal RLQ appendix. Nodes: No enlarged nodes. Peritoneum: No ascites. No free air. Urinary bladder: Unremarkable. Uterus: Removed. Adnexa: No masses. Bones: No acute bony abnormality. Grade 1 anterolisthesis of L3 on 4 and L4 on 5. Soft tissues: Right Nash's cysts. IMPRESSION: 1. Patent aortoiliac and fem-pop arteries bilaterally without significant stenosis. 2. Two-vessel tibioperoneal runoff bilaterally. AUDIO VISUAL AIDE occluded bilaterally. 3. Additional nonarterial findings as above. Reviewed, dictated and finalized at location R. IMPRESSION: 1. Patent aortoiliac and fem-pop arteries bilaterally without significant sten osis. 2. Two-vessel tibioperoneal runoff bilaterally. AUDIO VISUAL AIDE occluded bilaterally. 3. Additional nonarterial findings as above.
--- OUTSIDE RECORDS SUMMARY | 2025-06-23 07:13 | XMS_ITS | Encounter Summary ---
Author Organization [employer] Address 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
--- OUTSIDE RECORDS SUMMARY | 2025-06-23 07:13 | XMS_ITS | Clinical Summary ---
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
--- OUTSIDE RECORDS SUMMARY | 2025-06-23 07:13 | XMS_ITS | Encounter Summary ---
Author Organization [facility] Address [address] [place] [address] Care Team Providers Care Boom Stick Worker Name Role Phone Trace Terry MD Primary Care Provider + Encounter Details Date Type Department Care Team (Latest Contact Info) Description 05/26/2008 Outpatient Historical [facility] Leyla Sharif MD [address] [facility] [address] [place] [address] Central Perforation of Tympanic Membrane Social History Tobacco Use Types Packs/Day Years Used Date Smoking Tobacco: Never Assessed Comments Unknown Sex and Gender Information Value Date Recorded Sex Assigned at Not on file Legal Sex Female 5:25 AM PULMONARY PHYSICIAN Gender Identity Not on file Sexual Orientation [...] PATHOLOGY (06/14/2008 10:34 AM CDT) FINAL REPORT [facility] [address], [place] [address] Patient: CANDE DUONG : 1940 Procedure Date: 06/14/2008 Accession Date: 06/14/2008 Case No: [id number] Ordering Dr: LEYLA SHARIF Case types AW, BW, FW, NW and SH are performed by [facility], [place], [place] SURGICAL PATHOLOGY & NON-GYNECOLOGIC CYTOPATHOLOGY REPORT [...] 01:29 pm Microscopic: The slide is labeled [id number] and Cande Duong. The specimen labeled tympanic [...] CDT) CHLORIDE 103 96 - 108 mmol/L [facility] GLUCOSE 84 65 - 99 mg/dL [facility] SODIUM 140 135 - 145 mmol/L [facility] GFR >60 >=60 mL/min/1.7 sq meter [facility] Comment: Modification of Diet in Renal Disease (MDRD) study formula. Estimated GFR rate interpretative information for both Americans and non- Americans is available on the [facility] Intranet at: [email or web address] Select: Lab Policies and Procedures Select: Reference Ranges - GFR CALCIUM 9.7 8.6 - 10.2 mg/dL [facility] GFR, >60 >=60 mL/min/1.7 sq meter [facility] CO2 28 22 - 30 mmol/L [facility] CREATININE 0.72 0.51 - 0.95 mg/dL [facility] POTASSIUM 3.7 3.5 - 4.9 mmol/L [facility] BUN 18 6 - 20 mg/dL [facility] Blood specimen (specimen) 06/08/2008 9:50 AM CDT 06/08/2008 11:05 AM CDT Leyla Sharfi MD CHEMISTRY ORDERABLES Edited Performing Organization Address [facility] de Phone Number INTERFACE SYSTEM Refer to clinic/hospital department [facility] CLIA# [id number] [address] [place] [address] * HEMOGLOBIN AND HEMATOCRIT (06/08/2008 9:50 AM CDT) HEMATOCRIT 38.1 35.5 - 44.0 % [facility] HEMOGLOBIN 13.1 11.8 - 14.8 g/dL [facility] Blood specimen (specimen) 06/08/2008 9:50 AM CDT 06/08/2008 11:05 AM CDT Leyla Sharif MD HEMATOLOGY ORDERABLES Final Result Performing Organization Address [facility] Co de Phone Number INTERFACE SYSTEM Refer to clinic/hospital department [facility] CLIA# [id number] [address] [place] [address] documented in this encounter Visit Diagnoses Diagnosis Central perforation of tympanic membrane documented in this encounter Care Teams Boom Stick Worker Relationship Specialty Start Date End Date Trace Terry MD [address] [place] [address] PCP - General 10/16/06 documented as of this encounter
--- OUTSIDE RECORDS SUMMARY | 2025-06-23 07:14 | XMS_ITS | Encounter Summary ---
Author Organization [facility] Address [address] [facility] [place] [address] Care Team Providers Care Locksmith Name Role Phone Trace Terry MD Primary Care Provider [phone] Encounter Details Date Type Department Care Team (Late st Contact Info) Description 08/18/2018 Lab Requisition [facility] Care Pathology Lab [address] [place] [address] Social History Tobacco Use Types Packs/Day Years Used Date Smoking Tobacco: Never Alcohol Use Standard Drinks/Week Comments No 0 (1 standard drink = 0.6 oz pur e alcohol) Comments Unknown Sex and Gender Information Value Date Recorded Sex Assigned at Not on file Legal Sex Female 7:16 PM METAL FABRICATING SUPERVISOR Gender Identity Not on file Sexual Orientation Not on file documented as of this encounter Plan of Treatment Not on file documented as of this encounter Procedures Procedure Name Priority Date/Time Associated Diagnosis Comments PATHOLOGY TISSUE Routine 08/13/2018 9:35 AM METAL FABRICATING SUPERVISOR documented in this encounter Results * PATHOLOGY TISSUE (08/13/2018 9:35 AM METAL FABRICATING SUPERVISOR) Case Report Surgical Pathology Report Case: [id number] Authorizing Provider: Collected: 08/13/2018 09:35 AM Pathologist: Ella Heard MD Received: 08/18/2018 09:35 AM Specimen: Breast Biopsy, [id number] 08/19/2018 9:48 AM METAL FABRICATING SUPERVISOR [facility] Final Diagnosis Breast, left, 1:00, needle core biopsy (OSC [id number], 08/13/18): - 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 - See description. 08/19/2018 9:48 AM METAL FABRICATING SUPERVISOR [facility] at 0948 METAL FABRICATING SUPERVISOR Microscopic Description and Comment Review of the [...] ductal carcinoma, grade 3. Please see the [facility] pathology report for additional details regarding the [...] are performed on the block in the [facility] Department of Pathology, with appropriately reactive [...] findings is required. KR/NW 08/19/2018 9:48 AM [facility] Clinical History 08/19/2018 9:48 AM [facility] Materials Received Received are 15 slides and 1 block labeled as [id number] along with the outside pathology report. The materials originate from [facility], [address] [place], [place] [address]. All materials are returned to the referring institution, along with a copy of our final report. 08/19/2018 9:48 AM [facility] Disclaimer The performance characteristics of [...] the attending (teaching) pathologist. 08/19/2018 9:48 AM [facility] Embedded Images 08/19/2018 9:48 AM [facility] Pathology/Cytolo gy BIOPSY OF BREAST / Unknown 08/13/2018 9:35 AM METAL FABRICATING SUPERVISOR 08/18/2018 9:35 AM METAL FABRICATING SUPERVISOR us LAB - PATHOLOGY/CYTOLOGY ORDERAB LES Final Result [facility] PATHOLOGY LAB [address] [phone] documented in this encounter Visit Diagnoses Not on filedocumented in this encounter Care Teams Locksmith Relationship Specialty Start Date End Date Trace Terry MD [address] [place] [address] PCP - General 06/23/08 documented as of this encounter
--- OUTSIDE RECORDS SUMMARY | 2025-06-23 07:14 | XMS_ITS | Encounter Summary ---
Author Organization [facility] Address [address] [facility] [place] [address] Care Team Providers Care Commercial Counsel Name Role Phone Trace Terry MD Primary Care Provider [phone] Encounter Details Date Type Department Care Team (Late st Contact Info) Description 04/26/2019 Lab Requisition [facility] Care Pathology Lab [address] [place] [address] Neftaly Silvestre MD [address] [place] [address] Social History Tobacco Use Types Packs/Day Years Used Date Smoking Tobacco: Never Alcohol Use Standard Drinks/Week Comments No 0 (1 standard drink = 0.6 oz pur e alcohol) Comments Unknown Sex and Gender Information Value Date Recorded Sex Assigned at Not on file Legal Sex Female 7:16 PM STEWARD/STEWARDESS SECOND Gender Identity Not on file Sexual Orientation Not on file documented as of this encounter Plan of Treatment Not on file documented as of this encounter Procedures Procedure Name Priority Date/Time Associated Diagnosis Comments PATHOLOGY TISSUE Routine 04/22/2019 10:0 0 AM CDT documented in this encounter Results * PATHOLOGY TISSUE (04/22/2019 10:00 AM CDT) Case Report Surgical Pathology Report Case: [id number] Authorizing Provider: Neftaly Silvestre MD Collected: 04/22/2019 10:00 AM Ordering Location: [facility] Care Pathology Lab Received: 04/26/2019 01:25 PM Pathologist: Ella Heard MD Specimen: Slide Consultation, [id number] 04/28/2019 11:05 AM CDT [facility] Final Diagnosis Left axillary sentinel lymph nodes #1-4, excision (OSC [id number], 04/22/19): - No evidence of lymphoma or metastatic carcinoma. - See description. Left breast, lumpectomy with wire localization (OSC [id number], 04/22/19): - Follicular lymphoma, residual/recurrent. - No evidence of residual carcinoma. - See description. 04/28/2019 11:05 AM [facility] PATH[facility] at 1105 CDT Microscopic Description and Comment The four sentinel lymph nodes show a mix of primary follicles with a few small germinal centers and sinus histiocytosis. No extrinsic cell populations are identified. Immunohistochemistry is performed in the [facility] Department of Pathology on [...] follicular pattern. Immunohistochemistry is performed in the [facility] Department of Pathology on block E7 to assess these lymphocytes in the breast tissue given the patient's history of lymphoma. There is a mix of CD20 and [id number] B-cells with fewer numbers of CD3-positive T-cells. [...] correlation is required. KR 04/28/2019 11:05 AM [facility] Clinical History 78 year old woman with a history of follicular lymphoma and breast carcinoma. 04/28/2019 11:05 AM [facility] Materials Received Received are 31 slides and 8 blocks labeled as [id number] along with the outside pathology report. The materials originate from [facility], [address] [place] [address], [place] [address]. All materials are returned to the referring institution, along with a copy of our final report. 04/28/2019 11:05 AM T [facility] PATHOLOG[facility] LAB Disclaimer The performance characteristics of all immunohistochemical and indirect immunofluorescence stains (if any) cited in this report were determined by the Histopathology Laboratory of [facility]. Some of these tests were developed [...] attending (teaching) pathologist. 04/28/2019 11:05 AM T [facility] PATHOLOGY LAB Embedded Images 04/28/2019 11:05 AM T [facility] PATHOLOG[facility] LAB Pathology/Cytolo gy SURGICAL PATHOLOGY CONSULTATION AND REPORT ON REFERRED SLIDES PREPARED ELSEWHERE / Unknown 04/22/2019 10:00 AM CDT 04/26/2019 1:25 PM CDT Neftaly Silvestre MD LAB - PATHOLOGY/CYTOLOGY ORDER ION Final Result Performing Organization Address City/State/[facility] Co de Phone Number [facility] PATHOLOG[facility] LAB [address] [phone] documented in this encounter Visit Diagnoses Not on filedocumented in this encounter Care Teams Commercial Counsel Relationship Specialty Start Date End Date Trace Terry MD [address] [place] [address] PCP - General 06/23/08 documented as of this encounter
--- OUTSIDE RECORDS SUMMARY | 2025-06-23 07:14 | XMS_ITS | Encounter Summary ---
Author Organization [facility] Address [address] [place] [address] Care Team Providers Care Waste Cotton Cleaner Name Role Phone Trace Terry MD Primary Care Provider + Encounter Details Date Type Department Care Team (Late st Contact Info) Description 12/04/2005 Outpatient Historical [facility] Support Serv. (Adt Cardiology-[facility]) [address] [place] [address] Frankie Leal MD NO ADDRESS ON FILE Social History Tobacco Use Types Packs/Day Years Used Date Smoking Tobacco: Never Assessed Comments Unknown Sex and Gender Information Value Date Recorded Sex Assigned at Not on file Legal Sex Female 5:25 AM DRAFTER PLUMBING Gender Identity Not on file Sexual Orientation Not on file documented as of this encounter Plan of Treatment Not on file documented as of this encounter Visit Diagnoses Not on filedocumented in this encounter Care Teams Waste Cotton Cleaner Relationship Specialty Start Date End Date Trace Terry MD [address] [place] [address] PCP - General 10/16/06 documented as of this encounter
--- OUTSIDE RECORDS SUMMARY | 2025-06-23 07:14 | XMS_ITS | Encounter Summary ---
Author Organization [facility] Address [address] [place] [address] Care Team Providers Care Denture Technician Name Role Phone Trace Terry MD Primary Care Provider + Encounter Details Date Type Department Care Team (Latest Contact Info) Description 12/10/2005 Outpatient Historical [facility] Rohan Sharif MD [address] [address] Unspecified Perforation of Tympanic Membrane (Primary Dx) Social History Tobacco Use Types Packs/Day Years Used Date Smoking Tobacco: Never Assessed Comments Unknown Sex and Gender Information Value Date Recorded Sex Assigned at Not on file Legal Sex Female 5:25 AM LAYBOY TENDER Gender Identity Not on file Sexual Orientation Not on file documented as of this encounter Plan of Treatment Not on file documented as of this encounter Procedures Procedure Name Priority Date/Time Associated Diagnosis Comments HEMOGLOBIN AND HEMATOCRIT Routine 12/04/2005 2:22 PM LAYBOY TENDER BASIC METABOLIC PANEL Routine 12/04/2005 2:22 PM LAYBOY TENDER documented in this encounter Results * HEMOGLOBIN AND HEMATOCRIT (12/04/2005 2:22 PM LAYBOY TENDER) HEMOGLOBIN 12.8 11.8 - 14.8 g/dL INTERFACE SYSTEM HEMATOCRIT 38.0 35.5 - 44.0 % INTERFACE SYSTEM 12/04/2005 2:22 PM LAYBOY TENDER Rohan Sharif MD HEMATOLOGY ORDERABLES Final Result INTERFACE SYSTEM Refer to clinic/hospital department * (ABNORMAL) BASIC METABOLIC PANEL (12/04/2005 2:22 PM LAYBOY TENDER) GLUCOSE 93 65 - 109 mg/dL INTERFACE [...] 30 mmol/L INTERFACE SYSTEM 12/04/2005 2:22 PM LAYBOY TENDER us Rohan Sharif MD CHEMISTRY ORDERABLES Final R esult INTERFACE SYSTEM Refer to clinic/hospital department documented in this encounter Visit Diagnoses Diagnosis Perforation of tympanic membrane, unspecified- Primary documented in this encounter Care Teams Denture Technician Relationship Specialty Start Date End Date Trace Terry MD [address] [place] [address] PCP - General 10/16/06 documented as of this encounter
--- OUTSIDE RECORDS SUMMARY | 2025-06-23 07:14 | XMS_ITS ---
Author Organization [facility] Address [address] [place] [address] Phone Care Team Providers Care Emergency Room Technician Name Role Phone Teresa Nelson Rosalie STITCHING MACHINE FEEDER OR OFFBEARER Unavailable [phone] Jadon Mccallum MD Unavailable Rhea Boone STITCHING MACHINE FEEDER OR OFFBEARER Unavailable [phone] Jadon Mccallum MD Primary Care Provider [phone] Rosa Pantoja MD Unavailable [phone] Active Problems Problem Noted Date Diagnosed Date Personal history of radiation therapy 09/13/2021 Encounter for central line care 12/15/2018 Encounter for monitoring cardiotoxic drug therap y 10/27/2018 Malignant neoplasm of overla pping sites of left breast in female, estrogen receptor positive 10/05/2018 Cancer Staging:Clinical stage from 10/26/2018:Stage IB(cT2, cN0, cM0, G2, ER: Positive, ND: Positive, HER2: Positive) - Signed by Eulogio [...]
--- OUTSIDE RECORDS SUMMARY | 2025-06-23 07:14 | XMS_ITS | Clinical Summary ---
Author Organization [facility] Address [address] [address] Care Team Providers Care Breaker Up Name Role Phone Trace Terry MD Primary Care Provider Source Comments [facility],non-owned Affiliates and Associated Physician Practices is amultiple site organization consisting of ambulatory clinics and hospital sitesin [place], [place], [place] and [place]. This disclosure is being madepursuant to the Care Everywhere program and may not contain all information available regarding this patient. 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 Gender Identity Not on file Sexual Orientation [...] patient's age to complete this topic Insurance [facility] MANAGED MEDICARE ADV SELF PAY NO INSURANCE Member Subscriber Plan / Payer (Ef fective for All Dates) Name:Cande Duong Member ID:Not on file Relation to Subscriber:Not on file Name:CANDE DUONG Subscriber ID:Not on file (Home) Address: [facility] [place] [address] Payer ID:Not on file Group ID:Not on file Type:Self Pay Address: [facility] MANAGED MEDICARE ADV Care Teams Breaker Up Relationship Specialty Start Date End Date Trace Terry MD [address] [place] [phone] PCP - General 06/23/08
--- OUTSIDE RECORDS SUMMARY | 2025-06-23 07:14 | XMS_ITS | Clinical Summary ---
Author Organization [facility] Address [address] [place] [address] Phone Care Team Providers Care Personal Lines Advisor Name Role Phone Teresa Nelson Rosalie CHIEF SCIENTIST Unavailable [phone] Jadon Mccallum MD Unavailable Rhea Boone CHIEF SCIENTIST Unavailable [phone] Jadon Mccallum MD Primary Care Provider [phone] Rosa Pantoja MD Unavailable [phone] Allergies Active Allergy Reactions Criticality Noted Date Comments Penicillins Rash Medium 12/03/2010 Medications calcium-vitam in D3-vitamin K 500 mg-1,000 unit-40 mcg tablet,chewab le 10/01/2017Calcium + d, po solid 500mg-1000 Tablet, chewablePOdailyCurrent Medication 018 Active latanoprost (XALATAN) 0.005 % ophthalmic solution 020 Active Alphagan P 0.1 % drops 020 Active alendronate (FOSAMAX) 70 mg tablet TAKE 1 TABLET BY MOUTH ONCE WEEKLY 022 Active cholecalcifer ol (VITAMIN D-3) 25 mcg (1,000 unit) tablet Take 1 tablet (1,000 Units total) by mouth daily Active fluticasone propionate (FLONASE) 50 mcg/actuation nasal spray SPRAY 2 SPRAYS IN EACH NOSTRIL ONCE DAILY 01/09/2 024 Active Active Problems Problem Noted Date Diagnosed Date Personal history of radiation therapy 09/13/2021 Encounter for central line care 12/15/2018 Encounter for monitoring cardiotoxic drug therap y 10/27/2018 Malignant neoplasm of overla pping sites of left breast in female, estrogen receptor positive 10/05/2018 Cancer Staging:Clinical stage from 10/26/2018:Stage IB(cT2, cN0, cM0, G2, ER: Positive, IN: Positive, HER2: Positive) - Signed by Eulogio Caicedo MD on 10/26/2018 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/30/2018 Hot flashes, menopausal 08/28/2015 Lymphoma, non-Hodgkin's 07/25/2015 Encounters Date Type Department Care Team Description 06/21/2025 Telephone [facility] Medical Office Building 2 Radiation Oncology [address] [place] [phone] Lilian Hdez PA 05/19/2025 Telephone [facility] Medicine Physicians [facility] Oncology [address] [place] [phone] Jeri Morel RN 05/17/2025 11:30 AM CDT Office Visit [facility] Physicians [facility] Oncology [address] [place] [phone] Teresa Nelson, GYPSY Malignant neoplasm of upper-outer quadrant of left breast in female, estrogen receptor positive (HCC) (Primary Dx); Malignant neoplasm of overlapping sites of left breast in female, estrogen receptor positive (HCC); Follicular lymphoma grade I, unspecified body region (HCC); ferry terminal agent (current) use of aromatase inhibitors; Localized edema 05/17/2025 Telephone [facility] Medicine Physicians [facility] Oncology [address] [place] [phone] Rula Osullivan CMA from Last 3 [...] on file Legal Sex Female 12:19 PM RELIEF MAP MODELER Gender Identity Not on file Sexual Orientation [...] 162.6 cm (5' 4) 11/02/2024 1:10 PM RELIEF MAP MODELER Body Mass Index 24.75 11/02/2024 1:10 PM RELIEF MAP MODELER Plan of Treatment Health Maintenance Due Date [...] 11/2017, 03/10/2018 Medical Devices Implanted Type Area Profile Trimmer Device Identifier Shelf Expiration Date Model / [...] Most Recently Relevant to [place] [address] [facility] MEDICARE ADVANTAGE [facility] MEDICARE Address: [address] [address] [facility] MDCR HMO REF [facility] MEDICARE Address: [address] [address] [place] [address] [facility] MEDICARE ADVANTAGE [facility] MEDICARE Address: [address] [address] [place] [address] Care Teams Personal Lines Advisor Relationship Specialty Start Date End Date Jadon Mccallum MD [address] [place] [phone] PCP - General Family Practice 10/28/23 Teresa Nelson NP [address] [place] [address] [phone] Nurse Practitioner Medical Oncology 10/02/22 Jadon Mccallum MD [address] [place] [address] [address] Referring Physician Family Practice 06/24/23 Rhea Boone NP [address] [facility] [address] [facility] 1 [place] [address] Nurse Practitioner 06/24/23 Rosa Pantoja MD [address] [place] [address] Radiation Oncologist Radiation Oncology 05/04/24
--- OUTSIDE RECORDS SUMMARY | 2025-06-23 07:15 | XMS_ITS | Encounter Summary ---
Author Organization [facility] Address [address] [place] [address] Phone Care Team Providers Care Tipple Supervisor Name Role Phone Eulogio Caicedo MD Unavailable [phone] Román Cabrales DO Primary Care Provider [phone] Lake Zuniga MD PhD Unavailable [phone] Magdy Ortiz MD Unavailable [phone] Rosa Pantoja MD Unavailable [phone] Dieudonne Mora MD Unavailable [phone] Teresa Nelson FOOD ADVISER Unavailable [phone] Nino Biggs MD Primary Care Provider [phone] Jadon Mccallum MD Unavailable [phone] Rhea Boone FOOD ADVISER Unavailable [phone] Jadon Mccallum MD Primary Care Provider [phone] Rosa Pantoja MD Unavailable [phone] Encounter Details Date Type Department Care Team [...] on file Legal Sex Female 12: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 Gender Identity Not on file Sexual [...] on filedocumented in this encounter Care Teams Tipple Supervisor Relationship Specialty Start Date End Date Román Cabrales DO PCP - General Internal Medicine 01/06/19 10/21/22 Nino Biggs MD [facility] [address] [phone] PCP - General Internal Medicine 10/22/22 10/27/23 Jadon Mccallum MD [address] [facility] [address] [phone] PCP - General Family Practice 10/28/23 Eulogio Caicedo MD Medical Oncologist/Hematologis t Hematology and Oncology 09/30/18 03/06/21 Lake Zuniga MD PhD Consulting Physician Medical Oncology 03/07/21 1 Magdy Ortiz MD Medical Oncologist Hematology and Oncology 08/08/21 10/01/22 Rosa Pantoja MD Radiation Oncologist Radiation Oncology 09/13/21 Dieudonne Mora MD Medical Oncologist/Hematologis t Medical Oncology 03/18/22 10/01/22 Teresa Nelson NP [address] [place] [address] 180 [facility] 2 [place], [place] [address] Nurse Practitioner Medical Oncology 10/02/22 Jadon Mccallum MD [address] [place] [address] 180 [facility] 2 [place], [place] [address] Referring Physician Family Practice 06/24/23 Rhea Boone NP [address] [facility] 1 [facility] 1 [place], [place] [id number] Nurse Practitioner 06/24/23 Rosa Pantoja MD [address] [place] [address] Radiation Oncologist Radiation Oncology 05/04/24 documented as of this encounter
[2025-06-23 07:43] LABS: Estimated Glomerular Filt Rate > 60
== END 2025-06-23 07:11 | disposition home or self-care (01) ==
PROVIDERS: PCP Nurse Practitioner Family; Visit Provider Nurse Practitioner Family
DX: M79.89 Other specified soft tissue disorders (principal)
CPT/HCPCS: 75635; Q9967

== ENCOUNTER 2025-07-29 09:45 | Outpatient (CLI) | payer MEDICARE, SELFPAY ==
--- NOTE | ~2025-07-29 | XR_ITS ---
XR lumbar spine 2-3V Indication: M53.3 - Sacrococcygeal disorders, not elsewhere classified Comparison: None Findings: Grade 1 anterolisthesis of L4. On L4 and L4-L5, no fracture. There is a remote compression fracture of T12 with loss of height 50%. Moderate loss of disc height at L3-4 L4-5 with severe loss of disc at L5-S1. Soft tissues unremarkable Impression: No acute abnormality. Reviewed, dictated and finalized at location P. CLOSER Impression: No acute abnormality.
--- NOTE | ~2025-07-29 | XR_ITS ---
EXAMINATION: XR sacrum coccyx min 2V, 07/29/2025 10:04 DENTAL OFFICE ASSISTANT HISTORY: M53.3 - Sacrococcygeal disorders, not elsewhere classified COMPARISON: No comparisons available. Findings: No acute fracture or malalignment. No sclerosis of the sacroiliac joints with no erosions or bridging osteophyte formation Soft tissues unremarkable. Impression: No acute fracture or malalignment. Reviewed, dictated and finalized at location P. AL OFFICE ASSISTANT Impression: No acute fracture or malalignment.
--- OUTSIDE RECORDS SUMMARY | 2025-07-29 09:49 | XMS_ITS ---
Author Organization [facility] Address [address] [place] [address] Phone Care Team Providers Care Air Operations Manager Name Role Phone Teresa Nelson Rosalie OCTAVE BOARD ASSEMBLER Unavailable [phone] Jadon Mccallum MD Unavailable Rhea Boone OCTAVE BOARD ASSEMBLER Unavailable [phone] Jadon Mccallum MD Primary Care Provider [phone] Rosa Pantoja MD Unavailable [phone] Active [...]
--- OUTSIDE RECORDS SUMMARY | 2025-07-29 09:49 | XMS_ITS | Clinical Summary ---
Author Organization [email or web address] Address [address] [facility] Attn: Epic Prelude ADT JOSE CADE [address] Care Team Providers Care Salvage Worker Name Role Phone Trace Terry MD Primary Care Provider + Social History Tobacco Use Types Packs/Day Years Used Date Smoking Tobacco: Never Assessed Comments Unknown Sex and Gender Information Value Date Recorded Sex Assigned at Not on file Legal Sex Female 5:25 AM CONTACT REPRESENTATIVE Gender Identity Not on file Sexual [...] 2013 INFLUENZA VACCINE (#1) 2025 Care Teams Salvage Worker Relationship Specialty Start Date End Date Trace Terry MD [address] [place] [address] PCP - General 10/16/06
--- OUTSIDE RECORDS SUMMARY | 2025-07-29 09:49 | XMS_ITS | Clinical Summary ---
Author Organization [facility] Address [address] [place] [address] Phone Care Team Providers Care Assistant To The President Name Role Phone Teresa Nelson Rosalie CENTRAL PROCESSING TECH Unavailable [phone] Jadon Mccallum MD Unavailable Rhea Boone CENTRAL PROCESSING TECH Unavailable Jadon Mccallum MD Primary Care Provider [phone] Rosa Pantoja MD Unavailable [phone] Allergies [...] 10/26/2018:Stage IB(cT2, cN0, cM0, G2, ER: Positive, [place]: Positive, HER2: Positive) - Signed by Eulogio Caicedo MD on 10/26/2018 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/30/2018 Hot flashes, menopausal 08/28/2015 Lymphoma, non-Hodgkin's 07/25/2015 Encounters Date Type Department Care Team Description 06/21/2025 Telephone [facility] Medical Office Building 2 Radiation Oncology [address] [place] [id number] Lilian Hdez PA 05/19/2025 Telephone [facility] Medicine Physicians [facility] Oncology [address] [place] [phone] Jeri Morel RN 05/17/2025 11:30 AM CDT Office Visit [facility] Physicians [facility] Oncology [address] [place] [phone] Teresa Nelson, GYPSY Malignant neoplasm of upper-outer quadrant of left breast in female, estrogen receptor positive (HCC) (Primary Dx); Malignant neoplasm of overlapping sites of left breast in female, estrogen receptor positive (HCC); Follicular lymphoma grade I, unspecified body region (HCC); borematic operator (current) use of aromatase inhibitors; Localized edema 05/17/2025 Telephone [facility] Medicine Physicians [facility] Oncology [address] [place] [phone] Rula Osullivan CMA from Last 3 [...] on file Legal Sex Female 12:19 PM AEROSPACE MANAGER Gender Identity Not on file Sexual [...] 162.6 cm (5' 4) 11/02/2024 1:10 PM AEROSPACE MANAGER Body Mass Index 24.75 11/02/2024 1:10 PM AEROSPACE MANAGER Plan of Treatment Health Maintenance Due Date Last Done Comments Depression Screening 1938 Fall Risk Assessment 1938 DTaP/Tdap/Td Vaccine (1 - Tdap) 1949 Hepatitis B Screening 1956 Well Visit 65+ 2003 Pneumococcal vaccine 65+ (2 of 2 - PCV) 07/18/2014 07/18/2013 Covid-19 Vaccine (2024-2 6 season) 2025 05/20/2024, 06/21/2023, 05/21/2022, Additional history exists Influenza Vaccine (#1) 2025 , 05/21/2023, 05/16/2022, Additional history exists Osteoporosis Screening-Bone Density Scan 03/24/2026 03/24/2024 Zoster Vaccine Completed 05/12/2018, 11/2017, 03/10/2018 Medical Devices Implanted Type Area Patient Care Director Device Identifier Shelf Expiration Date Model / [...] Most Recently Relevant to Health [place] [address] [facility] MEDICARE ADVANTAGE [facility] MDCR HMO REF [facility] MEDICARE ADVANTAGE Care Teams Assistant To The President Relationship Specialty Start Date End Date Jadon Mccallum MD [address] [place] [address] [id number] PCP - General Family Practice 10/28/23 Teresa Nelson NP [facility] [address] [facility] [address] [phone] Nurse Practitioner Medical Oncology 10/02/22 Jadon Mccallum MD [address] [place] [address] [phone] Referring Physician Family Practice 06/24/23 Rhea Boone NP [address] [facility] 1 [facility] 1 [place] [address] Nurse Practitioner 06/24/23 [place] [address] [place] [address] Radiation Oncologist Radiation Oncology 05/04/24
--- OUTSIDE RECORDS SUMMARY | 2025-07-29 09:49 | XMS_ITS | Clinical Summary ---
Author Organization [facility] Address [address] [place] [address] Care Team Providers Care Pharmacy Affairs Assistant Name Role Phone Trace Terry MD Primary Care Provider [phone] Source Comments [facility],non-owned Affiliates and Associated Physician Practices is amultiple site organization consisting of ambulatory clinics and hospital sitesin [place], [place], [place]. This disclosure is being madepursuant to the Care Everywhere program and may not contain all information available regarding this patient. 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 Gender Identity Not on file Sexual Orientation [...] patient's age to complete this topic Insurance [facility] MANAGED MEDICARE ADV SELF PAY NO INSURANCE Member Subscriber Plan / Payer (Ef fective for All Dates) Name:Cande Duong Member ID:Not on file Relation to Subscriber:Not on file Name:CANDE DUONG Subscriber ID:Not on file (Home) Address: [facility] [address] [address] Payer ID:Not on file Group ID:Not on file Type:Self Pay Address: [facility] MANAGED MEDICARE ADV Care Teams Pharmacy Affairs Assistant Relationship Specialty Start Date End Date Trace Terry MD [address] [place] [phone] PCP - General 06/23/08
--- OUTSIDE RECORDS SUMMARY | 2025-07-29 09:49 | XMS_ITS | Encounter Summary ---
Author Organization [employer] Address [address] [place] [address] Care Team Providers Care Master Craftsman Name Role Phone Trace Terry MD Primary Care Provider + Encounter Details Date Type Department Care Team (Late st Contact Info) Description 12/04/2005 [facility]patient [facility] [address] 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
--- OUTSIDE RECORDS SUMMARY | 2025-07-29 09:49 | XMS_ITS | Encounter Summary ---
Author Organization [facility] Address [address] [facility] [place] [address] Care Team Providers Care Marketing Account Executive Name Role Phone Trace Terry MD Primary Care Provider [phone] Encounter Details Date Type Department Care Team (Late st Contact Info) Description 04/26/2019 Lab Requisition [facility] Care Pathology Lab [address] [place] [address] Neftaly Silvestre MD [address] [place] [address] Social History Tobacco Use Types Packs/Day Years Used Date Smoking Tobacco: Never Alcohol Use Standard Drinks/Week Comments No 0 (1 standard drink = 0.6 oz pur e alcohol) Comments Unknown Sex and Gender Information Value Date Recorded Sex Assigned at Not on file Legal Sex Female 7:16 PM FORESTRY WORKERS Gender Identity Not on file Sexual Orientation Not on file documented as of this encounter Plan of Treatment Not on file documented as of this encounter Procedures Procedure Name Priority Date/Time Associated Diagnosis Comments PATHOLOGY TISSUE Routine 04/22/2019 10:0 0 AM CDT documented in this encounter Results * PATHOLOGY TISSUE (04/22/2019 10:00 AM CDT) Case Report Surgical Pathology Report Case: [id number] Authorizing Provider: Neftaly Silvestre MD Collected: 04/22/2019 10:00 AM Ordering Location: [facility] Care Pathology Lab Received: 04/26/2019 01:25 PM Pathologist: Ella Heard MD Specimen: Slide Consultation, [id number] 04/28/2019 11:05 AM CDT [facility] Final Diagnosis Left axillary sentinel lymph nodes #1-4, excision (OSC [id number], 04/22/19): - No evidence of lymphoma or metastatic carcinoma. - See description. Left breast, lumpectomy with wire localization (OSC [id number], 04/22/19): - Follicular lymphoma, residual/recurrent. - No evidence of residual carcinoma. - See description. 04/28/2019 11:05 AM [facility] PATHOLOGY LAB at 1105 CDT Microscopic Description and Comment The four sentinel lymph nodes show a mix of primary follicles with a few small germinal centers and sinus histiocytosis. No extrinsic cell populations are identified. Immunohistochemistry is performed in the [facility] Department of Pathology on block A1 [...] follicular pattern. Immunohistochemistry is performed in the [facility] Department of Pathology on block E7 to assess these lymphocytes in the breast tissue given the patient's history of lymphoma. There is a mix of CD20 and [id number] B-cells with fewer numbers of CD3-positive T-cells. [...] correlation is required. KR 04/28/2019 11:05 AM [facility] Clinical History 78 year old woman with a history of follicular lymphoma and breast carcinoma. 04/28/2019 11:05 AM [facility] PATHOLOGY LAB Materials Received Received are 31 slides and 8 blocks labeled as [id number] along with the outside pathology report. The materials originate from [facility], [address] [place] [address], [place] [address]. All materials are returned to the referring institution, along with a copy of our final report. 04/28/2019 11:05 AM T [facility] PATHOLOGY LAB Disclaimer The performance characteristics of all immunohistochemical and indirect immunofluorescence stains (if any) cited in this report were determined by the Histopathology Laboratory of [facility]. Some of these tests were [...] attending (teaching) pathologist. 04/28/2019 11:05 AM T [facility] PATHOLOGY LAB Embedded Images 04/28/2019 11:05 AM T [facility] PATHOLOGY LAB Pathology/Cytolo gy SURGICAL PATHOLOGY CONSULTATION AND REPORT ON REFERRED SLIDES PREPARED ELSEWHERE / Unknown 04/22/2019 10:00 AM CDT 04/26/2019 1:25 PM CDT Neftaly Silvestre MD LAB - PATHOLOGY/CYTOLOGY ORDER ION Final Result Performing Organization Address City/State/[facility] Co de Phone Number [facility] PATHOLOGY LAB [address] [phone] documented in this encounter Visit Diagnoses Not on filedocumented in this encounter Care Teams Marketing Account Executive Relationship Specialty Start Date End Date Trace Terry MD [address] [place] [address] PCP - General 06/23/08 documented as of this encounter
--- OUTSIDE RECORDS SUMMARY | 2025-07-29 09:49 | XMS_ITS | Encounter Summary ---
Author Organization [employer] Address [address] [place] [address] Care Team Providers Care Scalemaker Name Role Phone Trace Terry MD Primary Care Provider + Encounter Details Date Type Department Care Team (Latest Contact Info) Description 12/10/2005 Outpatient Historical [facility] Rohan Sharif MD [address] [address] Unspecified Perforation of Tympanic Membrane (Primary Dx) Social History Tobacco Use Types Packs/Day Years Used Date Smoking Tobacco: Never Assessed Comments Unknown Sex and Gender Information Value Date Recorded Sex Assigned at Not on file Legal Sex Female 5:25 AM INDUSTRIAL GARAGE SERVICER Gender Identity Not on file Sexual Orientation Not on file documented as of this encounter Plan of Treatment Not on file documented as of this encounter Procedures Procedure Name Priority Date/Time Associated Diagnosis Comments HEMOGLOBIN AND HEMATOCRIT Routine 12/04/2005 2:22 PM INDUSTRIAL GARAGE SERVICER BASIC METABOLIC PANEL Routine 12/04/2005 2:22 PM INDUSTRIAL GARAGE SERVICER documented in this encounter Results * HEMOGLOBIN AND HEMATOCRIT (12/04/2005 2:22 PM INDUSTRIAL GARAGE SERVICER) HEMOGLOBIN 12.8 11.8 - 14.8 g/dL INTERFACE SYSTEM HEMATOCRIT 38.0 35.5 - 44.0 % INTERFACE SYSTEM 12/04/2005 2:22 PM INDUSTRIAL GARAGE SERVICER Rohan Sharif MD HEMATOLOGY ORDERABLES Final Result INTERFACE SYSTEM Refer to clinic/hospital department * (ABNORMAL) BASIC METABOLIC PANEL (12/04/2005 2:22 PM INDUSTRIAL GARAGE SERVICER) GLUCOSE 93 65 - 109 mg/dL INTERFACE [...] 30 mmol/L INTERFACE SYSTEM 12/04/2005 2:22 PM INDUSTRIAL GARAGE SERVICER us Rohan Sharif MD CHEMISTRY ORDERABLES Final R esult INTERFACE SYSTEM Refer to clinic/hospital department documented in this encounter Visit Diagnoses Diagnosis Perforation of tympanic membrane, unspecified- Primary documented in this encounter Care Teams Scalemaker Relationship Specialty Start Date End Date Trace Terry MD [address] [place] [address] PCP - General 10/16/06 documented as of this encounter
--- OUTSIDE RECORDS SUMMARY | 2025-07-29 09:49 | XMS_ITS | Encounter Summary ---
Author Organization [facility] Address [address] [place] [address] Care Team Providers Care Gluer Machine Setup Operator Name Role Phone Trace Terry MD Primary Care Provider [phone] Encounter Details Date Type Department Care Team (Late st Contact Info) Description 08/18/2018 Lab Requisition [facility] Care Pathology Lab [address] [place] [address] Social History Tobacco Use Types Packs/Day Years Used Date Smoking Tobacco: Never Alcohol Use Standard Drinks/Week Comments No 0 (1 standard drink = 0.6 oz pur e alcohol) Comments Unknown Sex and Gender Information Value Date Recorded Sex Assigned at Not on file Legal Sex Female 7:16 PM MANAGER USER EXPERIENCE Gender Identity Not on file Sexual Orientation Not on file documented as of this encounter Plan of Treatment Not on file documented as of this encounter Procedures Procedure Name Priority Date/Time Associated Diagnosis Comments PATHOLOGY TISSUE Routine 08/13/2018 9:35 AM MANAGER USER EXPERIENCE documented in this encounter Results * PATHOLOGY TISSUE (08/13/2018 9:35 AM MANAGER USER EXPERIENCE) Case Report Surgical Pathology Report Case: [id number] Authorizing Provider: Collected: 08/13/2018 09:35 AM Pathologist: Ella Heard MD Received: 08/18/2018 09:35 AM Specimen: Breast Biopsy, [id number] 08/19/2018 9:48 AM MANAGER USER EXPERIENCE [facility] Final Diagnosis Breast, left, 1:00, needle core biopsy (OSC [id number], 08/13/18): - 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 - See description. 08/19/2018 9:48 AM MANAGER USER EXPERIENCE [facility] at 0948 MANAGER USER EXPERIENCE Microscopic Description and Comment Review of the [...] ductal carcinoma, grade 3. Please see the [facility] pathology report for additional details regarding [...] are performed on the block in the [facility] Department of Pathology, with appropriately reactive controls. [...] findings is required. KR/NW 08/19/2018 9:48 AM [facility] PATH[facility] Clinical History 08/19/2018 9:48 AM [facility] Materials Received Received are 15 slides and 1 block labeled as [id number] along with the outside pathology report. The materials originate from [facility], [address] [place], [place] [address]. All materials are returned to the referring institution, along with a copy of our final report. 08/19/2018 9:48 AM [facility] PATH[facility] Disclaimer The performance characteristics of all immunohistochemical and indirect immunofluorescence stains (if any) cited in this report were determined by the Histopathology Laboratory of [facility]. Some of these tests were [...] the attending (teaching) pathologist. 08/19/2018 9:48 AM [facility] Embedded Images 08/19/2018 9:48 AM [facility] Pathology/Cytolo gy BIOPSY OF BREAST / Unknown 08/13/2018 9:35 AM MANAGER USER EXPERIENCE 08/18/2018 9:35 AM MANAGER USER EXPERIENCE us LAB - PATHOLOGY/CYTOLOGY ORDERAB LES Final Result [facility] PATH[facility] LAB [address] [phone] documented in this encounter Visit Diagnoses Not on filedocumented in this encounter Care Teams Gluer Machine Setup Operator Relationship Specialty Start Date End Date Trace Terry MD [address] [place] [address] PCP - General 06/23/08 documented as of this encounter
--- OUTSIDE RECORDS SUMMARY | 2025-07-29 09:49 | XMS_ITS | Encounter Summary ---
Author Organization [facility] Address [address] [place] [address] Phone Care Team Providers Care Gun Perforator Loader Name Role Phone Eulogio Caicedo MD Unavailable [phone] Román Cabrales DO Primary Care Provider [phone] Lake Zuniga MD PhD Unavailable [phone] Magdy Ortiz MD Unavailable [phone] Rosa Pantoja MD Unavailable [phone] Dieudonne Mora MD Unavailable [phone] Teresa Nelson PIE 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 Unavailable + [phone] Nino Biggs MD Primary Care Provider [phone] Jadon Mccallum MD Unavailable [phone] Rhea Boone PIE 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 Unavailable [phone] Jadon Mccallum MD Primary Care Provider [phone] Rosa Pantoja MD Unavailable [phone] Encounter Details Date Type Department Care Team [...] on file Legal Sex Female 12:19 PM PAPER STEAMER Gender Identity Not on file Sexual Orientation [...] on filedocumented in this encounter Care Teams Gun Perforator Loader Relationship Specialty Start Date End Date Román Cabrales DO PCP - General Internal Medicine 01/06/19 10/21/22 Nino Biggs MD [facility] [address] [id number] PCP - General Internal Medicine 10/22/22 10/27/23 Jadon Mccallum MD [address] [facility] [address] [id number] PCP - General Family Practice 10/28/23 Eulogio Caicedo MD Medical Oncologist/Hematologis t Hematology and Oncology 09/30/18 03/06/21 Lake Zuniga MD PhD Consulting Physician Medical Oncology 03/07/21 1 Magdy Ortiz MD Medical Oncologist Hematology and Oncology 08/08/21 10/01/22 Rosa Pantoja MD Radiation Oncologist Radiation Oncology 09/13/21 Dieudonne Mora MD Medical Oncologist/Hematologis t Medical Oncology 03/18/22 10/01/22 Teresa Nelson NP [address] [place] [address] 180 [facility] [place], [place] [address] Nurse Practitioner Medical Oncology 10/02/22 Jadon Mccallum MD [address] [place] [address] 180 [facility] [place], [place] [address] Referring Physician Family Practice 06/24/23 Rhea Boone NP [address] [facility] 1 [facility] 1 [place], [place] [id number] Nurse Practitioner 06/24/23 Rosa Pantoja MD [address] [place] [id number] Radiation Oncologist Radiation Oncology 05/04/24 documented as of this encounter
--- OUTSIDE RECORDS SUMMARY | 2025-07-29 09:49 | XMS_ITS | Encounter Summary ---
Author Organization [employer] Address [address] [place] [address] Care Team Providers Care Wool Sampler Name Role Phone Trace Terry MD Primary Care Provider + Encounter Details Date Type Department Care Team (Late st Contact Info) Description 10/16/2006 Outpatient Historical [facility] Rohan Sharif MD [address] [address] Unspecified Perforation of Tympanic Membrane (Primary Dx) Social History Tobacco Use Types Packs/Day Years Used Date Smoking Tobacco: Never Assessed Comments Unknown Sex and Gender Information Value Date Recorded Sex Assigned at Not on file Legal Sex Female 5:25 AM HEAD OF IT Gender Identity Not on file Sexual Orientation Not on file documented as of this encounter Plan of Treatment Not on file documented as of this encounter Visit Diagnoses Diagnosis Perforation of tympanic membrane, unspecified- Primary documented in this encounter Care Teams Wool Sampler Relationship Specialty Start Date End Date Trace Terry MD [address] [place] [id number] PCP - General 10/16/06 documented as of this encounter
--- OUTSIDE RECORDS SUMMARY | 2025-07-29 09:49 | XMS_ITS | Encounter Summary ---
Author Organization [facility] Address [address] [place] [address] Care Team Providers Care Horticulture/Floriculture Teacher Name Role Phone Trace Terry MD Primary Care Provider + Encounter Details Date Type Department Care Team (Latest Contact Info) Description 05/26/2008 Outpatient Historical [facility] Leyla Sharif MD [address] [facility] [address] [place] [address] Central Perforation of Tympanic Membrane Social History Tobacco Use Types Packs/Day Years Used Date Smoking Tobacco: Never Assessed Comments Unknown Sex and Gender Information Value Date Recorded Sex Assigned at Not on file Legal Sex Female 5:25 AM BOX TOE CUTTER Gender Identity Not on file Sexual Orientation [...] PATHOLOGY (06/14/2008 10:34 AM CDT) FINAL REPORT [facility] [address], [place] [address] Patient: CANDE DUONG : 1940 Procedure Date: 06/14/2008 Accession Date: 06/14/2008 Case No: [id number] Ordering Dr: LEYLA SHARIF Case types AW, BW, FW, NW and SH are performed by [facility], [place], [place] SURGICAL PATHOLOGY & NON-GYNECOLOGIC CYTOPATHOLOGY REPORT [...] 01:29 pm Microscopic: The slide is labeled [id number] and Cande Duong. The specimen labeled tympanic [...] and non- Americans is available on the [facility] Intranet at: [email or web address] Select: Lab Policies and Procedures Select: Reference [...] CHEMISTRY ORDERABLES Edited Performing Organization Address [facility] de Phone Number INTERFACE SYSTEM Refer to clinic/hospital department [facility] CLIA# [id number] [address] [place] [address] * HEMOGLOBIN AND HEMATOCRIT (06/08/2008 9:50 AM CDT) HEMATOCRIT 38.1 35.5 - 44.0 % [facility] HEMOGLOBIN 13.1 11.8 - 14.8 g/dL [facility] Blood specimen (specimen) 06/08/2008 9:50 AM CDT 06/08/2008 11:05 AM CDT Leyla Sharif MD HEMATOLOGY ORDERABLES Final Result Performing Organization Address [facility] Co de Phone Number INTERFACE SYSTEM Refer to clinic/hospital department [facility] CLIA# [id number] [address] [place] [address] documented in this encounter Visit Diagnoses Diagnosis Central perforation of tympanic membrane documented in this encounter Care Teams Horticulture/Floriculture Teacher Relationship Specialty Start Date End Date Trace Terry MD [address] [place] [address] PCP - General 10/16/06 documented as of this encounter
== END 2025-07-29 09:46 | disposition home or self-care (01) ==
PROVIDERS: PCP Nurse Practitioner Family; Visit Provider Nurse Practitioner Family
DX: M53.3 Sacrococcygeal disorders, not elsewhere classified (principal); M54.10 Radiculopathy, site unspecified
CPT/HCPCS: 72100; 72220